=== PATIENT | male | born 1950 | race African-American/Black ===

== ENCOUNTER → 2017-05-27 | Outpatient (CLI) | payer MEDICARE ==
--- NOTE | 2017-05-27 13:08 | RADIOLOGY REPORT (SQ) ---
EXAM DESCRIPTION: CT CHEST WITH; CT ABD/PELVIS WITH IV ONLY COMPLETED DATE/TIME: 05/27/2017 10:33 am REASON FOR STUDY: POLYP OF TRANSVERSE COLON (D12.3); POLYP OF TRANSVERCE COLON, UNSPEC (D12.3) D12.3 BENIGN NEOPLASM OF TRANSVERSE COLON COMPARISON: None. CONTRAST TYPE AND DOSE: contrast/concentration: Isovue 370.00 mg/ml; Total Contrast Delivered: 99.0 ml; Total Saline Delivered: 72.0 ml RADIATION DOSE: Up-to-date CT equipment and radiation dose reduction techniques were employed. CTDIv ol: 9.3 - 14.3 mGy. DLP: 1988 mGy-cm. . LIMITATIONS: None. FINDINGS: CHEST: LUNGS AND PLEURA: No opacities, nodules, masses. No pneumothorax. No effusions. HILAR AND MEDIASTINAL STRUCTURES: No identified masses or abnormal nodes. Small hiatal hernia HEART AND VASCULAR STRUCTURES: No aneurysm or dissection. No central pulmonary emboli. No pericardi al effusion. Mild coronary artery calcifications HARDWARE: None. THYROID AND OTHER SOFT TISSUES: No masses. No adenopathy. BONES: No significant finding. OTHER: No other significant finding. ABDOMEN AND PELVIS: LIVER: Normal size. No masses. No dilated ducts. SPLEEN: Normal size. No focal lesions. PANCREAS: No masses. No significant calcifications. No adjacent inflammation or peripancreatic fluid collections. Pancreatic duct not dilated. GALLBLADDER: Multiple stones layer dependently in the gallbladder. No gallbladder wall thickening or pericholecystic fluid. ADRENAL GLANDS: There are bilateral nonspecific adrenal nodules, 2.1 x 1.8 cm on the right side, a 2. 8 x 2.4 cm on the left RIGHT KIDNEY AND URETER: No solid masses. No significant calcification. No hydronephrosis or hydroure ter. LEFT KIDNEY AND URETER: No solid masses. No significant calcification. No hydronephrosis or hydrouret er. AORTA AND VESSELS: Heavily calcified iliac bifurcation with greater than 50% proximal common iliac ar [place] stenosis. Heavily calcified superior mesenteric artery origin with greater than 50% diameter st enosis. No abdominal aortic aneurysm. RETROPERITONEUM: No retroperitoneal adenopathy, hemorrhage or masses. BOWEL AND PERITONEAL CAVITY: Patient drank oral contrast. No evidence of bowel obstruction. Scatter ed colonic diverticulosis without CT signs of diverticulitis. No free intraperitoneal air or fluid. APPENDIX: Normal, best shown on coronal image 55 ABDOMINAL WALL: No masses. No hernias. BONES: No significant or acute findings. PELVIS: Prostate indents the bladder base. No pelvic masses or adenopathy. Delayed images through t he bladder are unremarkable. 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 Images reviewed with lung, soft tissue and bone windows. Reconstructed coronal a nd sagittal MPR images reviewed. All images stored on PACS. CT scan of the abdomen and pelvis performed with intravenous and with oral contrastusing helical scan lesley technique with dynamic intravenous contrast injection. Images reviewed with lung, soft tissue a nd bone windows. Reconstructed coronal and sagittal MPR images reviewed. Delayed images for evaluat ion of the urinary system also acquired and evaluated. All images stored on PACS. All CT scanners at this facility use dose modulation, iterative reconstruction, and/or weight based d osing when appropriate to reduce radiation dose to as low as reasonably achievable (ALARA). [facility]: Dose Right [facility]: CareDose [facility]: Dose Right [facility]: Teradose 4D [facility]: [employer]
== END ==
LOC: RAD 09:21
PROVIDERS: ATTEND Surgery
DX: D12.3 Benign neoplasm of transverse colon (principal)
CPT/HCPCS: 71260; 74177; 82565

== ENCOUNTER 2019-06-21 14:47 | Inpatient (IN) | payer MEDICARE ==
--- NOTE | 2019-06-21 15:06 | ER Document Report ---
ED Medical Screen (RME) - General Chief Complaint: Breathing Difficulty Stated Complaint: DIFFICULTY BREATHING,COUGH Time Seen by Provider: 06/21/19 15:01 Primary Care Provider: MONTY SHARPE MD [Primary Care Provider] - Follow up as needed Mode of Arrival: Wheelchair Information source: Patient, Relative Notes: 76-year-old male presents with history of high blood pressure high cholesterol with complaints of shortness of breath for the past couple days. Denies history of COPD. O2 sat in the 80s with 3 L nasal cannula applied. No other complaint such as fever vomiting diarrhea. I have greeted and performed a rapid initial assessment of this patient. A comprehensive ED assessment and evaluation of the patient, analysis of test results and completion of the medical decision making process will be conducted by additional ED providers. Dictation of this chart was performed using voice recognition software; therefore, there may be some unintended grammatical errors. TRAVEL OUTSIDE OF THE [place] IN LAST 30 DAYS: No - Related Data Allergies/Adverse Reactions: latex [Latex] Allergy (Intermediate, Verified 06/21/19 15:04) rash Past Medical History - Past Medical History Cardiac Medical History: Reports: Hx Hypertension - on medication Denies: Hx Coronary Artery Disease, Hx Heart Attack Pulmonary Medical History: Denies: Hx Asthma, Hx Bronchitis, Hx COPD, Hx Pneumonia Neurological Medical History: Denies: Hx Cerebrovascular Accident, Hx Seizures Musculoskeltal Medical History: Reports Hx Arthritis Past Surgical History: Denies: Hx Pacemaker - Immunizations Hx Diphtheria, Pertussis, Tetanus Vaccination: Yes - "up to date on others but past on Tetanus" per pt Physical Exam - Vital signs Vitals: Temp Pulse Resp BP Pulse Ox 98 F 87 32 H 193/83 H 87 L 06/21/19 14:59 06/21/19 14:59 06/21/19 14:59 06/21/19 14:59 06/21/19 14:59 Course - Vital Signs Vital signs: Temp Pulse Resp BP Pulse Ox 98 F 87 32 H 193/83 H 87 L 06/21/19 14:59 06/21/19 14:59 06/21/19 14:59 06/21/19 14:59 06/21/19 14:59 Doctor's Discharge - Discharge Referrals: MONTY SHARPE MD [Primary Care Provider] - Follow up as needed
[2019-06-21] MEDS ORDERED: NORMAL SALINE 1000 ML 200 ML IV ONE (15:36)
[2019-06-21] MEDS ORDERED: ASPIRIN 81 MG TABLET, CHEWABLE PO ONE (15:41)
[2019-06-21 15:52] LABS: INTERNATIONAL RATION (INR) 0.98
[2019-06-21 15:54] LABS: ABSOLUTE BASOPHILS # (AUTO) 0.1 10^3/uL (0.0-0.2); ABSOLUTE EOSINOPHILS # (AUTO) 0.1 10^3/uL (0.0-0.6); ABSOLUTE LYMPHOCYTES (AUTO) 0.9 10^3/uL (0.5-4.7); ABSOLUTE MONOCYTES (AUTO) 0.5 10^3/uL (0.1-1.4); ABSOLUTE NEUT (AUTO) 5.6 10^3/uL (1.7-8.2); BASOPHILS % (AUTO) 0.7 % (0-2); HEMATOCRIT 42.3 % (37.9-51.0); LYMPHOCYTES % (AUTO) 12.3 % (13-45); MEAN CORPUSCULAR HEMOGLOBIN 30.4 pg (27.0-33.4); MEAN CORPUSCULAR HGB CONC 33.1 g/dL (32.0-36.0); MEAN CORPUSCULAR VOLUME 92 fl (80-97); MONOCYTES % (AUTO) 6.5 % (3-13); PLATELET COUNT 225 10^3/uL (150-450); RED BLOOD COUNT 4.59 10^6/uL (4.35-5.55); RED CELL DISTRIBUTION WIDTH 13.9 % (11.5-14.0); SEGMENTED NEUTROPHILS % (AUTO) 79.5 % (42-78); TOTAL CELLS COUNTED % (AUTO) 100 %
--- NOTE | 2019-06-21 16:05 | ER Document Report ---
Entered by NEYDA LOOMIS SCRIBE 06/21/19 1551 Acting as scribe for:MARIA M APPIAH IV, MD ED General - General Mode of Arrival: Wheelchair TRAVEL OUTSIDE OF THE [place] IN LAST 30 DAYS: No <MARIA M APPIAH IV - Last Filed: 06/21/19 20:47> <VIVEKDUTCH Yoo - Last Filed: 06/21/19 23:37> - General Chief Complaint: Respiratory Distress Stated Complaint: DIFFICULTY BREATHING,COUGH Time Seen by Provider: 06/21/19 15:01 Primary Care Provider: MONTY SHARPE MD [NO LOCAL MD] - Follow up as needed Notes: This 68-year-old male patient presents to the emergency department today with complaints of what he describes as "a cold" for the last 2 to 3 days. Patient states that the first symptom he noticed was nasal congestion. Patient states yesterday he began developing some shortness of breath with an associated cough with white sputum production. Patient denies ever having any chest pain. PCP: Jamil (MARIA M APPIAH IV) - Related Data Allergies/Adverse Reactions: atorvastatin [From Lipitor] Allergy (Severe, Verified 06/21/19 15:50) Swelling of Throat lisinopril Allergy (Severe, Verified 06/21/19 15:50) Swelling of Throat latex [Latex] Allergy (Intermediate, Verified 06/21/19 15:50) rash Past Medical History - General Information source: Patient, Relative - Social History Smoking Status: Unknown if Ever Smoked Cigarette use (# per day): No Chew tobacco use (# tins/day): No Frequency of alcohol use: None Drug Abuse: None Lives with: Family Family History: Reviewed & Not Pertinent Patient has suicidal ideation: No Patient has homicidal ideation: No - Past Medical History Cardiac Medical History: Reports: Hx Hypertension - on multiple meds Musculoskeletal Medical History: Reports Hx Arthritis - Immunizations Hx Diphtheria, Pertussis, Tetanus Vaccination: Yes - "up to date on others but past on Tetanus" per pt <MARIA M APPIAH IV - Last Filed: 06/21/19 20:47> Review of Systems - Review of Systems Constitutional: No symptoms reported EENT: See HPI, Nose congestion Cardiovascular: denies: Chest pain Respiratory: See HPI, Cough, Short of breath Gastrointestinal: No symptoms reported Genitourinary: No symptoms reported Male Genitourinary: No symptoms reported Musculoskeletal: No symptoms reported Skin: No symptoms reported Hematologic/Lymphatic: No symptoms reported Neurological/Psychological: No symptoms reported -: Yes All other systems reviewed and negative <MARIA M APPIAH IV - Last Filed: 06/21/19 20:47> Physical Exam <MARIA M APPIAH IV - Last Filed: 06/21/19 20:47> - Vital signs Vitals: Temp Pulse Resp BP Pulse Ox 98 F 87 32 H 193/83 H 87 L 06/21/19 14:59 06/21/19 14:59 06/21/19 14:59 06/21/19 14:59 06/21/19 14:59 - Notes Notes: Physical Exam: General: Alert, appears well. HEENT: Normocephalic. Atraumatic. PERRL. Extraocular movements intact. Oropharynx clear. Neck: Supple. Non-tender. Respiratory: No respiratory distress. Clear and equal breath sounds bilaterally. Cardiovascular: Regular rate and rhythm. Abdominal: Normal Inspection. Non-tender. No distension. Normal Bowel Sounds. Back: No gross abnormalities. Extremities: Moves all four extremities. Upper extremities: Normal inspection. Normal ROM. Lower extremities: Normal inspection. No edema. Normal ROM. Neurological: Normal cognition. AAOx4. Normal speech. Psychological: Normal affect. Normal Mood. Skin: Warm. Dry. Normal color. (TDMARIA M HOPE IV) Course - Laboratory Result Diagrams: 06/21/19 15:30 06/21/19 15:30 - Transfer of Care Care transferred to following provider: DR. DOYLE AT 2047 HOURS <TDMARIA M IV - Last Filed: 06/21/19 20:47> - Laboratory Result Diagrams: 06/21/19 15:30 06/21/19 15:30 - Diagnostic Test Radiology reviewed: Image reviewed, Reports reviewed - Chest x-ray: Cardiomegaly with vascular congestion. <DUTCH DOYLE - Last Filed: 06/21/19 23:37> - Re-evaluation Re-evalutation: 06/21/19 20:12 Patient states that he just quit smoking yesterday. Patient states he is been smoking since he was in his 20s. Currently the patient is satting in the 90s on room air. (MARIA M APPIAH IV) 06/21/19 23:32 Assumed patient care from, , patient is on BiPAP doing much better, he was given Lasix 20 mg IV with no significant diuresis at this point. Appears to be a combination of cardiorespiratory exacerbation of shortness of breath. Doubt ischemic heart disease. Elevated BNP. 06/21/19 23:36 I have discussed with the patient that he will need to be brought into the hospital for further evaluation and treatment, he is in agreement with that plan. The hospitalist was contacted and will admit the patient for further evaluation and treatment. (DUTCH DOYLE) - Vital Signs Vital signs: Temp Pulse Resp BP Pulse Ox 97.9 F 87 21 H 116/98 H 100 06/21/19 20:33 06/21/19 15:04 06/21/19 23:01 06/21/19 23:01 06/21/19 23:01 - Laboratory Laboratory results interpreted by me: 06/21/19 06/21/19 06/21/19 15:30 15:30 15:30 Lymph % (Auto) 12.3 L Seg Neutrophils % 79.5 H Carbonic Acid ABG pH ABG pCO2 ABG pO2 ABG Total CO2 Glucose 150 H Total Bilirubin 1.4 H NT-Pro-B Natriuret Pep 1520 H Urine Protein Urine Blood 06/21/19 06/21/19 16:19 17:46 Lymph % (Auto) Seg Neutrophils % Carbonic Acid 0.83 L ABG pH 7.48 H ABG pCO2 27.5 L ABG pO2 63.2 L ABG Total CO2 20.8 L Glucose Total Bilirubin NT-Pro-B Natriuret Pep Urine Protein >=500 H Urine Blood SMALL H - EKG Interpretation by Me Additional EKG results interpreted by me: 06/21/19 20:18 EKG was performed at 1527 hrs. on 06/21/2019 and was interpreted by this MD. Findings: There are segments of ST elevation in V3 and V4 greater than 1 mm in height. There is some upsloping to the elevated ST segments. There are no apparent reciprocal changes seen on the EKG. Patient has a normal sinus rhythm, rate of 81, normal axis, P waves preceding QRS complexes, QRS complexes appear narrow. Repeat EKG performed at 1558 hrs. on 06/21/2019 was interpreted by this MD. Again seen are ST elevation segments with upsloping in V2 through V5. Again no reciprocal areas of depression are seen. Patient has a normal sinus rhythm with a rate of 83, normal axis, P waves preceding QRS complexes, QRS complexes are narrow. (MARIA M APPIAH IV) 06/21/19 23:35 EKG interpretation: Normal sinus rhythm, rate 83. First-degree AV block, DENIZ ED, LVH, repolarization abnormality. (DUTCH DOYLE) Discharge <MARIA M APPIAH IV - Last Filed: 06/21/19 20:47> - Discharge Admitting Provider: Julee (Hospitalist) Unit Admitted: Medical Floor <DUTCH DOYLE - Last Filed: 06/21/19 23:37> - Discharge Clinical Impression: Acute dyspnea CHF (congestive heart failure) Qualifiers: Heart failure type: other Qualified Code(s): I50.9 - Heart failure, unspecified Condition: Good Disposition: ADMITTED INPATIENT Referrals: MONTY SHARPE MD [NO LOCAL MD] - Follow up as needed I personally performed the services described in the documentation, reviewed and edited the documentation which was dictated to the scribe in my presence, and it accurately records my words and actions.
[2019-06-21 16:08] LABS: ALBUMIN 3.9 g/dL (3.5-5.0); ALKALINE PHOSPHATASE 39 U/L (38-126); ANION GAP 11 (5-19); ASPARTATE AMINO TRANSFERASE 21 U/L (17-59); BILIRUBIN,DIRECT 0.2 mg/dL (0.0-0.4); BILIRUBIN,TOTAL 1.4 mg/dL (0.2-1.3); BLOOD UREA NITROGEN 10 mg/dL (7-20); CALCIUM 9.4 mg/dL (8.4-10.2); CARBON DIOXIDE 22 mmol/L (22-30); CHLORIDE 104 mmol/L (98-107); GLUCOSE 150 mg/dL (75-110); POTASSIUM 3.6 mmol/L (3.6-5.0); TOTAL PROTEIN 6.9 g/dL (6.3-8.2)
--- NOTE | 2019-06-21 16:14 | RADIOLOGY REPORT (SQ) ---
EXAM DESCRIPTION: CHEST SINGLE VIEW COMPLETED DATE/TIME: 06/21/2019 3:52 pm REASON FOR STUDY: sob COMPARISON: 05/27/2017 TECHNIQUE: Single frontal radiographic view of the chest acquired. NUMBER OF VIEWS: One view. LIMITATIONS: None. FINDINGS: LUNGS AND PLEURA: No pneumothorax. Small amount of left basilar airspace disease- subsegm ental atelectasis. No significant pleural effusion. MEDIASTINUM AND HILAR STRUCTURES: Stable. HEART AND VASCULAR STRUCTURES: Stable. BONES: No acute findings. HARDWARE: None in the chest. OTHER: No other significant finding. IMPRESSION: Small amount of left basilar airspace disease- subsegmental atelectasis. No significant pleural effusion. TECHNICAL DOCUMENTATION: JOB ID: [id number] [id number] 2010 [employer] acquired by [employer]- All Rights Reserved Reading location - IP/workstation name: [email or web address]
[2019-06-21 16:20] LABS: TROPONIN I 0.048 ng/mL
[2019-06-21 16:35] LABS: APPEARANCE,URINE CLEAR; BILIRUBIN,URINE NEGATIVE (NEGATIVE); COLOR,URINE YELLOW; GLUCOSE, URINE NEGATIVE (NEGATIVE); KETONES,URINE NEGATIVE (NEGATIVE); LEUKOCYTE ESTERASE,URINE NEGATIVE (NEGATIVE); NITRITE,URINE NEGATIVE (NEGATIVE); PROTEIN,URINE >=500 mg/dL (NEGATIVE); URINE SPECIFIC GRAVITY 1.009; UROBILINOGEN,URINE NEGATIVE mg/dL (<2.0)
[2019-06-21 18:23] LABS: ARTERIAL BLOOD BASE EXCESS -2.1 mmol/L; ARTERIAL BLOOD H2CO3 0.83 mmol/L (1.05-1.35); ARTERIAL BLOOD PCO2 27.5 mmHg (35-45); ARTERIAL BLOOD PH 7.48 (7.35-7.45); ARTERIAL BLOOD PO2 63.2 mmHg (80-100); ARTERIAL BLOOD TOTAL CO2 20.8 mmol/L (23-27)
[2019-06-21 18:24] LABS: ARTERIAL BLOOD FIO2 ROOM AIR
[2019-06-21] MEDS ORDERED: IPRATROPIUM/ALBUTEROL 0.5-2.5 MG/3 ML AMPUL NEB ONE ×2 (20:35→20:38)
[2019-06-21] MEDS ORDERED: METHYLPREDNISOLONE INJ 125 MG/2 ML SDV IV ONE (20:35)
[2019-06-21] MEDS ORDERED: METHYLPREDNISOLONE INJ 125 MG/2 ML SDV ONE (20:38)
[2019-06-21] MEDS ORDERED: FUROSEMIDE INJ/PF 20 MG/2 ML SDV IV ONE (20:45)
--- NOTE | 2019-06-21 21:00 | EKG REPORT ---
SEVERITY:- ABNORMAL ECG - SINUS RHYTHM FIRST DEGREE AV BLOCK LEFT ATRIAL ABNORMALITY PROBABLE LEFT VENTRICULAR HYPERTROPHY ANTERIOR ST ELEVATION, PROBABLY DUE TO LVH : Confirmed by: Vinnie Sarabia MD 21-Jun-2019 20:59:41
--- NOTE | 2019-06-21 21:01 | EKG REPORT ---
SEVERITY:- ABNORMAL ECG - SINUS RHYTHM LEFT ATRIAL ABNORMALITY PROBABLE LEFT VENTRICULAR HYPERTROPHY ST ELEVATION, CONSIDER ANTERIOR INJURY , NO OLD EKG TO COMPARE, CLINICAL CORRELATION NEEDED. : Confirmed by: Vinnie Sarabia MD 21-Jun-2019 21:00:56
[2019-06-22] MEDS ORDERED: MAG HYDROX/AL HYDROX/SIMETH SUSP 30 ML UDCUP PO PRN (00:42)
[2019-06-22] MEDS ORDERED: ONDANSETRON HCL INJ/PF 4 MG/2 ML SDV IV PRN (00:42)
[2019-06-22] MEDS ORDERED: MAGNESIUM HYDROXIDE SUSP 30 ML UDCUP PO PRN (00:42)
[2019-06-22] MEDS ORDERED: LEVALBUTEROL HCL NEB 0.63 MG/3 ML AMPUL NEB PRN (00:42)
[2019-06-22] MEDS ORDERED: MORPHINE SULFATE 10 MG/ML INJ IV PRN (00:49)
[2019-06-22] MEDS ORDERED: ACETAMINOPHEN 325 MG TABLET PO PRN (00:49)
[2019-06-22] MEDS ORDERED: GLUCAGON,HUMAN RECOMB 1 MG INJ IM PRN (00:51)
[2019-06-22] MEDS ORDERED: DEXTROSE 50%-WATER 25 GM/50 ML DISP.SYRIN IV PRN ×2 (00:51)
[2019-06-22] MEDS ORDERED: DEXTROSE 40% GEL 15 GM TUBE PO PRN ×2 (00:51)
--- NOTE | 2019-06-22 02:06 | PDOC H&P ---
History of Present Illness Admission Date/PCP: 06/21/2019 23:40 ALEXANDER VELASQUEZ MD Patient complains of: Dyspnea History of Present Illness: LUCIE ANDREWS is a 68 year old male who presented to the emergency room with a 3-day history of dyspnea. He admits that over the last 3 days his respiratory symptoms have progressively worsened from initial minimal dyspnea with mild chest congestion to today's severe dyspnea causing him to come to the emergency room. His dyspnea has been associated with orthopnea and is worsened on exertion. His dyspnea has been accompanied by a cough productive of small amounts of white sputum. He denies other associated or accompanying signs and symptoms. He denies prior similar episodes. He has not identified any additional aggravating or ameliorating factors for his dyspnea. In the emergency room he was found to have hypoxia and increased work of breathing, requiring BiPAP therapy. Past Medical History Cardiac Medical History: Reports: Hyperlipidema, Hypertension Denies: Atrial Fibrillation, Congestive Heart Failure, Coronary Artery Disease, Myocardial Infarction Pulmonary Medical History: Denies: Asthma, Bronchitis, Chronic Obstructive Pulmonary Disease (COPD), Pneumonia EENT Medical History: Denies: Cataracts, Ears - Hearing aids Neurological Medical History: Denies: Hemorrhagic CVA, Ischemic CVA, Seizures Endocrine Medical History: Reports: Diabetes Mellitus Type 2 Denies: Diabetes Mellitus Type 1, Hyperthyroidism, Hypothyroidism, Obesity Renal/ Medical History: Denies: Chronic Kidney Disease, Nephrolithiasis Malignancy Medical History: Reports: None GI Medical History: Denies: Cirrhosis, Crohn's Disease, Hepatitis, Ulcerative Colitis Musculoskeltal Medical History: Reports: Arthritis Denies: Fibromyalgia, Gout Skin Medical History: Denies: Eczema, Psoriasis Psychiatric Medical History: Reports: Tobacco Dependency Denies: Alcohol Dependency, Substance Abuse Traumatic Medical History: Reports: None Hematology: Denies: Anemia, Bleeding Tendencies Infectious Medical History: Reports: None Past Surgical History Past Surgical History: Reports: Orthopedic Surgery - Neck Fusion X 2, rotator cuff surgery, Other - Segmental colectomy for colon cancer Social History Information Source: Patient Lives with: Spouse/Significant other Smoking Status: Current Every Day Smoker Cigarettes Packs Per Day: 0.5 Electronic Cigarette use?: No Frequency of Alcohol Use: None Hx Recreational Drug Use: No Drugs: None Hx Prescription Drug Abuse: No - Advance Directive Resuscitation Status: Full Code Surrogate healthcare decision maker:: Ingrid Taco Family History Family History: DM, Hypertension. denies: CAD, Malignancy Parental Family History Reviewed: Yes Children Family History Reviewed: No Sibling(s) Family History Reviewed.: Yes Medication/Allergy Home Medications: Amlodipine Besylate [Norvasc 10 mg Tablet] 10 mg PO DAILY 10/03/11 Labetalol HCl 600 mg PO BID 10/03/11 Metformin HCl [Glucophage 500 mg Tablet] 500 mg PO BID 10/03/11 Omeprazole [Prilosec] 20 mg PO DAILY 10/03/11 Terazosin HCl 20 mg PO DAILY 10/03/11 Clonidine HCl [Catapres] 0.1 mg PO Q12 02/02/14 Lovastatin [Altoprev] 40 mg PO QHS 06/22/19 Meloxicam [Mobic] 15 mg PO DAILYP PRN 06/22/19 Allergies/Adverse Reactions: atorvastatin [From Lipitor] Allergy (Severe, Verified 06/21/19 15:50) Swelling of Throat lisinopril Allergy (Severe, Verified 06/21/19 15:50) Swelling of Throat latex [Latex] Allergy (Intermediate, Verified 06/21/19 15:50) rash Review of Systems Constitutional: ABSENT: chills, fever(s) Eyes: ABSENT: visual disturbances, other - Eye pain Ears: ABSENT: hearing changes, other - Ear pain Nose, Mouth, and Throat: ABSENT: headache(s), mouth pain, sore throat Cardiovascular: PRESENT: as per HPI, dyspnea on exertion, orthropnea. ABSENT: chest pain, edema, palpitations Respiratory: PRESENT: as per HPI, cough, dyspnea, sputum. ABSENT: hemoptysis Gastrointestinal: ABSENT: abdominal pain, constipation, diarrhea, nausea, vomiting Genitourinary: ABSENT: dysuria, hematuria Musculoskeletal: ABSENT: back pain, joint swelling, muscle weakness Integumentary: ABSENT: pruritus, rash Neurological: ABSENT: confusion, convulsions, focal weakness, memory loss, syncope Psychiatric: ABSENT: anxiety, depression Endocrine: ABSENT: cold intolerance, heat intolerance Hematologic/Lymphatic: ABSENT: easy bleeding, easy bruising Allergic/Immunologic: ABSENT: seasonal rhinorrhea Physical Exam Vital Signs: Temp Pulse Resp BP Pulse Ox 97.9 F 87 21 H 116/98 H 100 06/21/19 20:33 06/21/19 15:04 06/21/19 23:01 06/21/19 23:01 06/21/19 23:01 Intake & Output 06/19/19 06/20/19 06/21/19 23:59 23:59 23:59 Intake Total 200 Balance 200 Weight 94.801 kg General appearance: PRESENT: no acute distress, cooperative, other - On BiPAP Head exam: PRESENT: atraumatic, normocephalic Eye exam: PRESENT: conjunctiva pink. ABSENT: conjunctival injection, scleral icterus Ear exam: PRESENT: normal external ear exam. ABSENT: bleeding, drainage Mouth exam: PRESENT: dry mucosa, neck supple Neck exam: PRESENT: JVD - Bilateral at 30 degrees. ABSENT: thyromegaly, tracheal deviation Respiratory exam: PRESENT: decreased breath sounds - Mildly decreased breath sounds at the bilateral bases, rales - Fine bibasilar rales in the lower one fourth of both lung camacho, symmetrical, other - On BiPAP. ABSENT: prolonged expiratory phas, tachypnea, wheezes Cardiovascular exam: PRESENT: gallop - Faint S4 gallop, RRR. ABSENT: clicks, rubs Pulses: PRESENT: normal radial pulses, normal dorsalis pedis pul Vascular exam: PRESENT: normal capillary refill. ABSENT: pallor GI/Abdominal exam: PRESENT: normal bowel sounds, soft Rectal exam: PRESENT: deferred Extremities exam: ABSENT: joint swelling, pedal edema Musculoskeletal exam: ABSENT: deformity, dislocation Neurological exam: PRESENT: alert, oriented to person, oriented to place, oriented to time, oriented to situation, CN II-XII grossly intact. ABSENT: motor sensory deficit Psychiatric exam: PRESENT: appropriate affect, normal mood Skin exam: PRESENT: dry, intact, warm. ABSENT: jaundice, rash, urticaria Results Laboratory Results: 06/21/19 15:30 06/21/19 15:30 06/21/19 06/21/19 06/21/19 15:30 15:30 16:19 WBC 7.0 RBC 4.59 Hgb 14.0 Hct 42.3 MCV 92 MCH 30.4 MCHC 33.1 RDW 13.9 Plt Count 225 Seg Neutrophils % 79.5 H Carbonic Acid HCO3/H2CO3 Ratio ABG pH ABG pCO2 ABG pO2 ABG HCO3 ABG O2 Saturation ABG Base Excess FiO2 Sodium 137.2 Potassium 3.6 Chloride 104 Carbon Dioxide 22 Anion Gap 11 BUN 10 Creatinine 0.97 Est GFR ( Amer) > 60 Glucose 150 H Calcium 9.4 Total Bilirubin 1.4 H AST 21 Alkaline Phosphatase 39 Total Protein 6.9 Albumin 3.9 Urine Color YELLOW Urine Appearance CLEAR Urine pH 6.0 Ur Specific [place] 1.009 Urine Protein >=500 H Urine Glucose (UA) NEGATIVE Urine Ketones NEGATIVE Urine Blood SMALL H Urine Nitrite NEGATIVE Ur Leukocyte Esterase NEGATIVE Urine WBC (Auto) 0 Urine RBC (Auto) 0 06/21/19 17:46 WBC RBC Hgb Hct MCV MCH MCHC RDW Plt Count Seg Neutrophils % Carbonic Acid 0.83 L HCO3/H2CO3 Ratio 24:1 ABG pH 7.48 H ABG pCO2 27.5 L ABG pO2 63.2 L ABG HCO3 20.0 ABG O2 Saturation 94.0 ABG Base Excess -2.1 FiO2 ROOM AIR Sodium Potassium Chloride Carbon Dioxide Anion Gap BUN Creatinine Est GFR ( Amer) Glucose Calcium Total Bilirubin AST Alkaline Phosphatase Total Protein Albumin Urine Color Urine Appearance Urine pH Ur Specific [place] Urine Protein Urine Glucose (UA) Urine Ketones Urine Blood Urine Nitrite Ur Leukocyte Esterase Urine WBC (Auto) Urine RBC (Auto) 06/21/19 06/21/19 15:30 20:02 Troponin I 0.048 0.060 NT-Pro-B Natriuret Pep 1520 H Impressions: Chest X-Ray 06/21/19 15:04 IMPRESSION: Small amount of left basilar airspace disease- subsegmental atelectasis. No significant pleural effusion. Assessment and Plan - Diagnosis (1) Acute respiratory failure with hypoxia Is this a current diagnosis for this admission?: Yes (2) Acute congestive heart failure Qualifiers: Heart failure type: unspecified Qualified Code(s): I50.9 - Heart failure, unspecified Is this a current diagnosis for this admission?: Yes (3) Essential hypertension Is this a current diagnosis for this admission?: Yes (4) Diabetes mellitus type 2 in nonobese Is this a current diagnosis for this admission?: Yes (5) Hyperlipidemia associated with type 2 diabetes mellitus Is this a current diagnosis for this admission?: Yes (6) Primary osteoarthritis involving multiple joints Is this a current diagnosis for this admission?: Yes (7) Tobacco use disorder, moderate, dependence Is this a current diagnosis for this admission?: Yes - Plan Summary Summary: Patient will be admitted to medical floor where he will receive routine supportive and symptomatic cares. He will be treated with intravenous Lasix 10 mg every 6 hours. An echocardiogram will be obtained and a cardiology consultation with Dr. Harrell has been ordered. Patient will be supported with BiPAP or other respiratory intervention as required to maintain adequate oxygen saturation. He will be continued on his usual home medications as appropriate. He will be continued on cardiac and diabetic restricted diet. Before meals and at bedtime Accu-Cheks will be obtained with sliding scale insulin for hyperglycemia and a hypoglycemic protocol in place. Patient will use morphine sulfate 2 mg IV every hour as needed for severe dyspnea. - Time Time Spent with patient: 25-34 minutes Medications reviewed and adjusted accordingly: Yes Anticipated discharge: Home with Homehealth - Inpatient Certification Based on my medical assessment, after consideration of the patient's comorbidities, presenting symptoms, or acuity I expect that the services needed warrant INPATIENT care.: Yes I certify that my determination is in accordance with my understanding of Medicare's requirements for reasonable and necessary INPATIENT services [42 CFR 412.3e].: Yes Medical Necessity: Significant Comorbidiites Make Outpatient Treatment Too Risky, Need Close Monitoring Due to Risk of Patient Decompensation, Risk of Complication if Not Cared For in Hospital
[2019-06-22 02:44] LABS: CREATINE KINASE MB 3.23 ng/mL (<4.55); TROPONIN I 0.076 ng/mL
[2019-06-22] MEDS: HEPARIN SOD (PORCINE) 5,000 UNIT/ML 1 ML VIAL SUBCUT SCH ×3 (07:05→21:15)
[2019-06-22] MEDS: INSULIN REG, HUMAN 100 UNIT/ML 3 ML VIAL (PYX) SUBCUT SCH ×4 (08:22→21:15)
--- NOTE | 2019-06-22 08:32 | PDOC PROGRESS REPORT ---
Subjective Progress Note for:: 06/22/19 Subjective:: 06/22/2019-no complaints Reason For Visit: DYSPNEA, ORTHOPNEA Physical Exam Vital Signs: Temp Pulse Resp BP Pulse Ox 97.4 F 79 18 116/82 95 06/22/19 01:07 06/22/19 01:07 06/22/19 05:37 06/22/19 01:07 06/22/19 06:23 Intake & Output 06/21/19 06/22/19 06/23/19 06:59 06:59 06:59 Intake Total 200 Output Total 200 Balance 0 Weight 93.1 kg General appearance: PRESENT: no acute distress, well-developed, well-nourished Neck exam: ABSENT: carotid bruit, JVD, lymphadenopathy, thyromegaly Respiratory exam: PRESENT: decreased breath sounds, rales - Bases, symmetrical, unlabored Cardiovascular exam: PRESENT: RRR. ABSENT: diastolic murmur, rubs, systolic murmur Pulses: PRESENT: normal dorsalis pedis pul Vascular exam: PRESENT: normal capillary refill GI/Abdominal exam: PRESENT: normal bowel sounds, soft. ABSENT: distended, guarding, mass, organolmegaly, rebound, tenderness Extremities exam: PRESENT: full ROM. ABSENT: calf tenderness, clubbing, pedal edema Neurological exam: PRESENT: alert, awake, oriented to person, oriented to place, oriented to time, oriented to situation, CN II-XII grossly intact. ABSENT: motor sensory deficit Psychiatric exam: PRESENT: appropriate affect, normal mood. ABSENT: homicidal ideation, suicidal ideation Skin exam: PRESENT: dry, intact, warm. ABSENT: cyanosis, rash Results Laboratory Results: 06/21/19 15:30 06/21/19 15:30 06/21/19 06/21/19 06/21/19 15:30 15:30 16:19 WBC 7.0 RBC 4.59 Hgb 14.0 Hct 42.3 MCV 92 MCH 30.4 MCHC 33.1 RDW 13.9 Plt Count 225 Seg Neutrophils % 79.5 H Carbonic Acid HCO3/H2CO3 Ratio ABG pH ABG pCO2 ABG pO2 ABG HCO3 ABG O2 Saturation ABG Base Excess FiO2 Sodium 137.2 Potassium 3.6 Chloride 104 Carbon Dioxide 22 Anion Gap 11 BUN 10 Creatinine 0.97 Est GFR ( Amer) > 60 Glucose 150 H Calcium 9.4 Total Bilirubin 1.4 H AST 21 Alkaline Phosphatase 39 Total Protein 6.9 Albumin 3.9 Urine Color YELLOW Urine Appearance CLEAR Urine pH 6.0 Ur Specific [place] 1.009 Urine Protein >=500 H Urine Glucose (UA) NEGATIVE Urine Ketones NEGATIVE Urine Blood SMALL H Urine Nitrite NEGATIVE Ur Leukocyte Esterase NEGATIVE Urine WBC (Auto) 0 Urine RBC (Auto) 0 06/21/19 17:46 WBC RBC Hgb Hct MCV MCH MCHC RDW Plt Count Seg Neutrophils % Carbonic Acid 0.83 L HCO3/H2CO3 Ratio 24:1 ABG pH 7.48 H ABG pCO2 27.5 L ABG pO2 63.2 L ABG HCO3 20.0 ABG O2 Saturation 94.0 ABG Base Excess -2.1 FiO2 ROOM AIR Sodium Potassium Chloride Carbon Dioxide Anion Gap BUN Creatinine Est GFR ( Amer) Glucose Calcium Total Bilirubin AST Alkaline Phosphatase Total Protein Albumin Urine Color Urine Appearance Urine pH Ur Specific [place] Urine Protein Urine Glucose (UA) Urine Ketones Urine Blood Urine Nitrite Ur Leukocyte Esterase Urine WBC (Auto) Urine RBC (Auto) 06/21/19 06/21/19 06/22/19 15:30 20:02 01:49 Creatine Kinase 154 CK-MB (CK-2) Troponin I 0.048 0.060 NT-Pro-B Natriuret Pep 1520 H 06/22/19 01:49 Creatine Kinase CK-MB (CK-2) 3.23 Troponin I 0.076 NT-Pro-B Natriuret Pep Impressions: Chest X-Ray 06/21/19 15:04 IMPRESSION: Small amount of left basilar airspace disease- subsegmental atelectasis. No significant pleural effusion. Assessment and Plan - Diagnosis (1) Acute respiratory failure with hypoxia Is this a current diagnosis for this admission?: Yes Plan: 06/22/2019-improved this a.m. Patient on nasal cannula speaking in full sentences. O2 sats 95% (2) Acute congestive heart failure Qualifiers: Heart failure type: unspecified Qualified Code(s): I50.9 - Heart failure, unspecified Is this a current diagnosis for this admission?: Yes Plan: 06/22/2019-awaiting echocardiogram. Patient does have bilateral basilar rales. Lasix 40 mg IV twice daily. Await bump in creatinine (3) Diabetes mellitus type 2 in nonobese Is this a current diagnosis for this admission?: Yes Plan: 06/22/2019-stable at this time. Continue current modality including slight scale insulin. (4) Essential hypertension Is this a current diagnosis for this admission?: Yes Plan: 06/22/2019-stable. Continue to follow (5) Hyperlipidemia associated with type 2 diabetes mellitus Is this a current diagnosis for this admission?: Yes Plan: 06/22/2019-stable (6) Primary osteoarthritis involving multiple joints Is this a current diagnosis for this admission?: Yes Plan: 06/22/2019-stable (7) Tobacco use disorder, moderate, dependence Is this a current diagnosis for this admission?: Yes Plan: 06/22/2019-continue smoking cessation education - Plan Summary Summary: Patient will be admitted to medical floor where he will receive routine supportive and symptomatic cares. He will be treated with intravenous Lasix 10 mg every 6 hours. An echocardiogram will be obtained and a cardiology consultation with Dr. Harrell has been ordered. Patient will be supported with BiPAP or other respiratory intervention as required to maintain adequate oxygen saturation. He will be continued on his usual home medications as appropriate. He will be continued on cardiac and diabetic restricted diet. Before meals and at bedtime Accu-Cheks will be obtained with sliding scale insulin for hyperglycemia and a hypoglycemic protocol in place. Patient will use morphine sulfate 2 mg IV every hour as needed for severe dyspnea. - Time Time Spent with patient: 15-24 minutes - Inpatient Certification Based on my medical assessment, after consideration of the patient's comorbidities, presenting symptoms, or acuity I expect that the services needed warrant INPATIENT care.: Yes I certify that my determination is in accordance with my understanding of Medicare's requirements for reasonable and necessary INPATIENT services [42 CFR 412.3e].: Yes Medical Necessity: Significant Comorbidiites Make Outpatient Treatment Too Risky, Need Close Monitoring Due to Risk of Patient Decompensation
[2019-06-22 08:47] LABS: CHOLESTEROL 149.16 mg/dL (0-200); CREATINE KINASE 154 U/L (55-170); TRIGLYCERIDES 55 mg/dL (<150)
[2019-06-22 08:57] LABS: DIRECT LDL 100 mg/dL (<100)
[2019-06-22 08:58] LABS: CREATINE KINASE MB 3.16 ng/mL (<4.55); TROPONIN I 0.071 ng/mL
[2019-06-22] MEDS: DOCUSATE SODIUM 100 MG CAPSULE PO SCH ×2 (09:48→18:33)
[2019-06-22] MEDS: FAMOTIDINE 20 MG TABLET PO SCH ×2 (09:48→21:14)
[2019-06-22] MEDS: FUROSEMIDE INJ/PF 40 MG/4 ML SDV IV SCH ×2 (09:48→21:14)
--- NOTE | 2019-06-22 15:34 | PDOC CONSULTATION ---
Consultation-Blank Consultation: ECHO: The left ventricle is mildly dilated. There is mild concentric left ventricular hypertrophy. LV EF is 40% Left ventricular systolic function is moderately reduced. Doppler measurements suggest impaired left ventricular relaxation, which is associated with grade I/IV or mild diastolic dysfunction There is moderate global hypokinesis of the left ventricle. There is no thrombus. No ASD or VSD seen. The right ventricle is grossly normal size. The right ventricle is not well visualized secondary to technical limitations The right atrium is normal. The left atrium is moderately dilated. There is no evidence of mitral valve prolapse. There is no vegetation seen on the mitral valve. There is no mitral valve stenosis. There is a moderate amount of mitral regurgitation There is no aortic valvular vegetation. There is no aortic valve stenosis There is no LVOT obstruction. No aortic regurgitation is present. There is no tricuspid stenosis. There is a trace to mild amount of tricuspid regurgitation There is mild pulmonary hypertension by echo RVSP is 32 to 37 mm of Hg , with RA mean of 10 to 15. There is no pulmonic valvular regurgitation. The aortic root is normal size. The inferior vena cava appeared normal and decreased < 50% with respiration (RAP 10-15 mmHg) Minimal pericardial effusion. There are no echocardiographic or Doppler indications for cardiac tamponade IMPRESSION RECOMMENDATION 1. Congestive heart failure seems to be acute in onset given the timeframe of symptom and etiology of 3 to 4 days. Agree with current diuretics. Would recommend stop the patient's clonidine. Start the patient on a beta-stephanie such as Toprol-XL in view of the patient's cardiomyopathy. Also would recommend starting the patient on BiDil. This is because the patient is severe angioedema with lisinopril and there is a small percentage of cross sensitivity with ARB. 2. Cardiomyopathy with moderately reduced LV ejection fraction. 3. COPD: History of tobacco abuse. Most likely there is some element aphasia acute exacerbation of COPD. Would recommend continue the patient on bronchodilators. There is no evidence of infection hence would hold off on antibiotics. 4. Hypertension: Blood pressure well controlled. 5. Diabetes mellitus type 2 [id number]: Continue current medical regimen. 6. Multiple CAD risk factors namely age, hypertension, diabetes mellitus, and tobacco abuse disorder. Also with LV dysfunction. Later would recommend once heart failure is controlled would recommend getting IV Lexiscan Cardiolite stress test. This can be done as an outpatient. This has been discussed with the patient. Medications reviewed. Medication management plan discussed with the attending provider on the case. Medical decision making is of high complexity. 60 minutes spent as patient more than 50% time spent in direct patient care.
[2019-06-22 15:41] LABS: CREATINE KINASE MB 3.17 ng/mL (<4.55)
--- NOTE | 2019-06-22 15:51 | RADIOLOGY REPORT (SQ) ---
EXAM DESCRIPTION: VENOUS UNILATERAL LOWER COMPLETED DATE/TIME: 06/22/2019 3:41 pm REASON FOR STUDY: left lower extremity pain COMPARISON: None. TECHNIQUE: Dynamic and static garcia scale and color images acquired of the left leg venous system. Se lected spectral images acquired with additional compression and augmentation maneuvers. The contralat eral common femoral vein and saphenofemoral junction were also imaged. Images stored on PACS. LIMITATIONS: None. FINDINGS: COMMON FEMORAL: Normal phasicity, compression and augmentation. No visualized echogenic ma terial on garcia scale. No defects on color images. FEMORAL: Normal compression and augmentation. No visualized echogenic material on garcia scale. No defe cts on color images. POPLITEAL: Normal compression, augmentation. No visualized echogenic material on garcia scale. No defec ts on color images. CALF VESSELS: Normal compression, augmentation. No visualized echogenic material on garcia scale. No de fects on color images. GSV and SSV: Normal compression, augmentation. No visualized echogenic material on garcia scale. No def ects on color images. ANY DEEP VENOUS INSUFFICIENCY: Not evaluated. ANY EVIDENCE OF POPLITEAL CYST: No. OTHER: No other significant finding. CONTRALATERAL COMMON FEMORAL VEIN AND SAPHENOFEMORAL JUNCTION: Normal phasicity, compression and augmentation. No visualized echogenic material on garcia scale. No de fects on color images. IMPRESSION: NO EVIDENCE DVT OR SVT IN THE LEFT LEG. TECHNICAL DOCUMENTATION: JOB ID: [id number] [employer]- All Rights Reserved Reading location - IP/workstation name: [email or web address]
[2019-06-22 16:28] LABS: TROPONIN I 0.068 ng/mL
[2019-06-22] MEDS: ISOSORB DINIT/HYDRALAZINE HCL 20-37.5 MG TABLET PO SCH (18:33)
[2019-06-22] MEDS: METOPROLOL SUCCINATE 25 MG TAB.SR.24H PO SCH (21:14)
--- NOTE | 2019-06-22 21:15 | XCELERA REPORT ---
[address] [address] Transthoracic Echocardiogram Report Name: LUCIE ANDREWS Age: 68 yrs Gender: Male : 1950 Patient Status: Inpatient Patient Location: [address] [place] [address] Study Date: 06/22/2019 02:08 PM Height: 70 in Weight: 209 lb BSA: 2.1 m2 Procedure: A two-dimensional transthoracic echocardiogram with color flow and Doppler was performed. Study Quality: Fair. Reason For Study: Dyspnea and orthopnea and longstanding HTN History: Dyspnea and orthopnea and longstanding HTN. Ordering Physician: NELSON ONEAL Performed By: Dior Almaraz Interpretation Summary The left ventricle is mildly dilated. There is mild concentric left ventricular hypertrophy. LV EF is 40% Left ventricular systolic function is moderately reduced. Doppler measurements suggest impaired left ventricular relaxation, which is associated with grade I/IV or mild diastolic dysfunction There is moderate global hypokinesis of the left ventricle. There is no thrombus. No ASD or VSD seen. The right ventricle is grossly normal size. The right ventricle is not well visualized secondary to technical limitations The right atrium is normal. The left atrium is moderately dilated. There is no evidence of mitral valve prolapse. There is no vegetation seen on the mitral valve. There is no mitral valve stenosis. There is a moderate amount of mitral regurgitation There is no aortic valvular vegetation. There is no aortic valve stenosis There is no LVOT obstruction. No aortic regurgitation is present. There is no tricuspid stenosis. There is a trace to mild amount of tricuspid regurgitation There is mild pulmonary hypertension by echo RVSP is 32 to 37 mm of Hg , with RA mean of 10 to 15. There is no pulmonic valvular regurgitation. The aortic root is normal size. The inferior vena cava appeared normal and decreased < 50% with respiration (RAP 10-15 mmHg) Minimal pericardial effusion. There are no echocardiographic or Doppler indications for cardiac tamponade MMode/2D Measurements & Calculations RVDd: 3.4 cm LVIDd: 5.5 cm FS: 22.2 % Ao root diam: 2.9 cm IVSd: 1.2 cm LVIDs: 4.2 cm EDV(Teich): 144.8 ml Ao root area: 6.6 cm2 LVPWd: 1.2 cm ESV(Teich): 80.7 ml EF(Teich): 44.2 % Doppler Measurements & Calculations Ao V2 max: LV V1 max PG: PA V2 max: TR max theo: 154.0 cm/sec 4.2 mmHg 66.2 cm/sec 232.2 cm/sec Ao max P.5 mmHg LV V1 max: PA max PG: TR max P.6 mmHg 102.4 cm/sec 1.8 mmHg Left Ventricle The left ventricle is mildly dilated. There is mild concentric left ventricular hypertrophy. LV EF is 40%. Left ventricular systolic function is moderately reduced. Doppler measurements suggest impaired left ventricular relaxation, which is associated with grade I/IV or mild diastolic dysfunction. There is moderate global hypokinesis of the left ventricle. There is no thrombus. No ASD or VSD seen. Right Ventricle The right ventricle is grossly normal size. The right ventricle is not well visualized secondary to technical limitations. Atria The right atrium is normal. The left atrium is moderately dilated. Mitral Valve There is no evidence of mitral valve prolapse. There is no vegetation seen on the mitral valve. There is no mitral valve stenosis. There is a moderate amount of mitral regurgitation. Aortic Valve There is no aortic valvular vegetation. There is no aortic valve stenosis. There is no LVOT obstruction. No aortic regurgitation is present. Tricuspid Valve There is no tricuspid stenosis. There is a trace to mild amount of tricuspid regurgitation. There is mild pulmonary hypertension by echo. RVSP is 32 to 37 mm of Hg , with RA mean of 10 to 15. Pulmonic Valve There is no pulmonic valvular stenosis. There is no pulmonic valvular regurgitation. Great Vessels The aortic root is normal size. The inferior vena cava appeared normal and decreased < 50% with respiration (RAP 10-15 mmHg). Effusions Minimal pericardial effusion. There are no echocardiographic or Doppler indications for cardiac tamponade. : NELSON ONEAL Lakshmi
[2019-06-22] MEDS ORDERED: CLONIDINE HCL 0.1 MG TABLET PO SCH (22:00)
[2019-06-22] MEDS ORDERED: (PENDING PHARMACY ID) (Lovastatin [Altoprev] 40 MG) PO SCH (22:00)
[2019-06-22] MEDS ORDERED: ATORVASTATIN CALCIUM 10 MG TABLET PO SCH ×2 (22:00)
[2019-06-23] MEDS: HEPARIN SOD (PORCINE) 5,000 UNIT/ML 1 ML VIAL SUBCUT SCH ×3 (06:19→21:13)
[2019-06-23 07:35] LABS: HEMATOCRIT 41.9 % (37.9-51.0); HEMOGLOBIN 13.7 g/dL (13.5-17.0); MEAN CORPUSCULAR HEMOGLOBIN 30.3 pg (27.0-33.4); MEAN CORPUSCULAR HGB CONC 32.6 g/dL (32.0-36.0); MEAN CORPUSCULAR VOLUME 93 fl (80-97); PLATELET COUNT 218 10^3/uL (150-450); RED BLOOD COUNT 4.52 10^6/uL (4.35-5.55); RED CELL DISTRIBUTION WIDTH 13.9 % (11.5-14.0); WHITE BLOOD COUNT 5.4 10^3/uL (4.0-10.5)
[2019-06-23 08:01] LABS: ANION GAP 15 (5-19); BLOOD UREA NITROGEN 23 mg/dL (7-20); CALCIUM 9.5 mg/dL (8.4-10.2); CARBON DIOXIDE 23 mmol/L (22-30); CHLORIDE 102 mmol/L (98-107); GLUCOSE 149 mg/dL (75-110)
[2019-06-23 08:28] LABS: POTASSIUM 3.4 mmol/L (3.6-5.0)
[2019-06-23] MEDS: INSULIN REG, HUMAN 100 UNIT/ML 3 ML VIAL (PYX) SUBCUT SCH ×4 (09:40→21:13)
[2019-06-23] MEDS: METOPROLOL SUCCINATE 25 MG TAB.SR.24H PO SCH ×2 (09:41→21:06)
[2019-06-23] MEDS: ISOSORB DINIT/HYDRALAZINE HCL 20-37.5 MG TABLET PO SCH ×3 (09:41→17:33)
[2019-06-23] MEDS: FAMOTIDINE 20 MG TABLET PO SCH ×2 (09:41→21:37)
[2019-06-23] MEDS: DOCUSATE SODIUM 100 MG CAPSULE PO SCH ×2 (09:41→17:33)
[2019-06-23] MEDS: FUROSEMIDE INJ/PF 40 MG/4 ML SDV IV SCH (09:41)
[2019-06-23] MEDS ORDERED: AMLODIPINE BESYLATE 10 MG TABLET PO SCH (10:00)
--- NOTE | 2019-06-23 12:58 | PDOC PROGRESS REPORT ---
Subjective Progress Note for:: 06/23/19 Subjective:: The patient is a 68-year-old male with a past medical history of hyperlipidemia, hypertension, DM 2, who was admitted 06/21/2019 for Acute respiratory failure with hypoxia secondary to an acute CHF exacerbation. The patient was seen on morning rounds with his present. He was found resting in bed comfortably on supplemental oxygen via nasal cannula; he is not home O2 dependent. He reports that his breathing is much improved; no dyspnea at rest or orthopnea. He reports that he is feeling well and is hopeful to be discharged to home shortly. He further denies fever, chills, chest pain, palpitations, cough, abdominal pain, nausea vomiting and diarrhea. He has no questions or concerns at this time. No concerns per nursing. Reason For Visit: DYSPNEA, ORTHOPNEA Physical Exam Vital Signs: Temp Pulse Resp BP Pulse Ox 97.6 F 73 15 111/84 100 06/23/19 07:56 06/23/19 07:56 06/23/19 07:56 06/23/19 07:56 06/23/19 07:56 Intake & Output 06/22/19 06/23/19 06/24/19 06:59 06:59 06:59 Intake Total 200 1112 Output Total 200 1105 Balance 0 7 Weight 93.1 kg 93.5 kg General appearance: PRESENT: no acute distress, cooperative, well-developed, well-nourished Head exam: PRESENT: atraumatic, normocephalic Eye exam: PRESENT: conjunctiva pink, EOMI, PERRLA. ABSENT: scleral icterus Ear exam: PRESENT: normal external ear exam Mouth exam: PRESENT: moist, tongue midline Neck exam: ABSENT: carotid bruit, JVD, lymphadenopathy, thyromegaly Respiratory exam: PRESENT: clear to auscultation tameka, symmetrical, unlabored, other - Supplemental oxygen via nasal cannula. ABSENT: rales, rhonchi, wheezes Cardiovascular exam: PRESENT: RRR, +S1, +S2. ABSENT: diastolic murmur, rubs, systolic murmur Pulses: PRESENT: normal dorsalis pedis pul Vascular exam: PRESENT: normal capillary refill GI/Abdominal exam: PRESENT: normal bowel sounds, soft. ABSENT: distended, guarding, mass, organolmegaly, rebound, tenderness Rectal exam: PRESENT: deferred Extremities exam: PRESENT: full ROM. ABSENT: calf tenderness, clubbing, pedal edema Neurological exam: PRESENT: alert, awake, oriented to person, oriented to place, oriented to time, oriented to situation, CN II-XII grossly intact. ABSENT: motor sensory deficit Psychiatric exam: PRESENT: appropriate affect, normal mood. ABSENT: homicidal ideation, suicidal ideation Skin exam: PRESENT: dry, intact, warm. ABSENT: cyanosis, rash Results Laboratory Results: 06/23/19 06:27 06/23/19 06:27 06/23/19 06/23/19 06/23/19 04:17 04:17 06:27 WBC Cancelled 5.4 RBC Cancelled 4.52 Hgb Cancelled 13.7 Hct Cancelled 41.9 MCV Cancelled 93 MCH Cancelled 30.3 MCHC Cancelled 32.6 RDW Cancelled 13.9 Plt Count Cancelled 218 Sodium Potassium Chloride Carbon Dioxide Anion Gap BUN Creatinine Est GFR ( Amer) Glucose Calcium Magnesium 06/23/19 06:27 WBC RBC Hgb Hct MCV MCH MCHC RDW Plt Count Sodium 140.4 Potassium 3.4 L Chloride 102 Carbon Dioxide 23 Anion Gap 15 BUN 23 H Creatinine 1.65 H Est GFR ( Amer) 50 L Glucose 149 H Calcium 9.5 Magnesium 06/21/19 06/21/19 06/22/19 15:30 20:02 01:49 Creatine Kinase 154 CK-MB (CK-2) Troponin I 0.048 0.060 NT-Pro-B Natriuret Pep 1520 H 06/22/19 06/22/19 06/22/19 01:49 08:03 08:03 Creatine Kinase 154 CK-MB (CK-2) 3.23 3.16 Troponin I 0.076 0.071 NT-Pro-B Natriuret Pep 06/22/19 06/22/19 14:41 14:41 Creatine Kinase 280 H CK-MB (CK-2) 3.17 Troponin I 0.068 NT-Pro-B Natriuret Pep Impressions: Chest X-Ray 06/21/19 15:04 IMPRESSION: Small amount of left basilar airspace disease- subsegmental atelectasis. No significant pleural effusion. Venous Doppler Study 06/22/19 00:00 IMPRESSION: NO EVIDENCE DVT OR SVT IN THE LEFT LEG. Assessment and Plan - Diagnosis (1) Acute congestive heart failure Qualifiers: Heart failure type: systolic Qualified Code(s): I50.21 - Acute systolic (congestive) heart failure Is this a current diagnosis for this admission?: Yes Plan: proBNP elevated 1520; no prior labs to compare to. Echocardiogram revealed LVEF of 40% with mild diastolic dysfunction. Cardiology has been consulted; appreciate Dr. Murry's input. Continue isosorbide/hydralazine. Continue metoprolol twice daily. Patient with lisinopril allergy; consider low-dose losartan. Patient was previously receiving IV furosemide twice daily; now on hold secondary to bump in creatinine. Continue cardiac diet. Daily weights, strict I&O's. Registered dietitian and special educator consulted. (2) Acute respiratory failure with hypoxia Is this a current diagnosis for this admission?: Yes Plan: Resolved; secondary to 1. Patient is now maintaining oxygen saturations while on room air. Remaining management as above. (3) Diabetes mellitus type 2 in nonobese Is this a current diagnosis for this admission?: Yes Plan: A1c of 5.5%. Continue holding metformin while admitted. Consistent carb diet. Accu-Cheks before meals and at bedtime with sliding scale insulin. Hypoglycemia protocol in place. (4) Essential hypertension Is this a current diagnosis for this admission?: Yes Plan: Well-controlled on the above-mentioned regimen. (5) Hyperlipidemia associated with type 2 diabetes mellitus Is this a current diagnosis for this admission?: Yes Plan: Lipid panel is acceptable. Continue home dose of lovastatin (6) Primary osteoarthritis involving multiple joints Is this a current diagnosis for this admission?: Yes Plan: Pain is adequately controlled with as needed Tylenol. (7) Tobacco use disorder, moderate, dependence Is this a current diagnosis for this admission?: Yes Plan: Smoking cessation is encouraged. (8) HAILEY (acute kidney injury) Is this a current diagnosis for this admission?: Yes Plan: Secondary to diuresis with IV furosemide. Creatinine 1.65 today; Up from baseline of 0.97. Furosemide is placed on hold. Encouraged p.o. fluids. Follow-up chemistry. - Plan Summary Summary: Patient will be admitted to medical floor where he will receive routine supportive and symptomatic cares. He will be treated with intravenous Lasix 10 mg every 6 hours. An echocardiogram will be obtained and a cardiology consultation with Dr. Sharri has been ordered. Patient will be supported with BiPAP or other respiratory intervention as required to maintain adequate oxygen saturation. He will be continued on his usual home medications as appropriate. He will be continued on cardiac and diabetic restricted diet. Before meals and at bedtime Accu-Cheks will be obtained with sliding scale insulin for hyperglycemia and a hypoglycemic protocol in place. Patient will use morphine sulfate 2 mg IV every hour as needed for severe dyspnea. - Time Time Spent with patient: 35 or more minutes Medications reviewed and adjusted accordingly: Yes Anticipated discharge: Home Within: within 72 hours - improved Creatinine/BUN
--- NOTE | 2019-06-23 19:33 | Progress Note ---
Provider Note Provider Note: CARDIOLOGY PROGRESS NOTE by Dr. Concha Harrell on 06/23/2019. OBJECTIVE: The patient states he feels much better. There is no chest pain or discomfort. He denies any shortness of breath at rest. There is no PND orthopnea or leg edema. There is no arrhythmia seen. The patient denies any palpitations. There is no TIA CVA symptoms. There is no pedal edema. Physical EXAMINATION: The patient is well-built and well-nourished. He is in no acute distress. Selected Entries 06/23/19 06/23/19 12:02 16:08 Temperature 98.5 F 98.6 F Temperature Oral Oral Source Pulse Rate 85 76 Respiratory 16 15 Rate Blood Pressure 128/90 H Blood Pressure 102 Mean BP Location Left Arm BP Position Sitting O2 Sat by Pulse 95 98 Oximetry Oxygen Flow 2.00 Rate Oxygen Delivery Nasal Cannula Room Air Method HEAD: Is atraumatic normocephalic. EYES: Pupils are equal round regular reactive to light and accommodation. Extraocular movements are normal. There is no conjunctival pallor. There is no scleral icterus. Ears: Tympanic membranes are intact. External auditory canals are clear. NOSE: There is no deviated nasal septum. There is no inflammation nasal mucous membrane. MOUTH: Mucous membranes of the mouth are moist. Tongue is moist. There is no ulcers. There is no bleeding from the gums. THROAT: There is no redness of the oropharynx. There is no exudates. SKIN: There is no skin lesions or skin rashes. There is no petechia or ecchymosis. NECK: Supple. There is no JVD. Carotids are equal there is no bruit there is no lymphadenopathy. NECK: Supple. At present there is no JVD. Carotids are equal there is no bruit. There is no lymphadenopathy. There is no goiter. There is no accessory muscle respiration use. Trachea central. LUNGS: There is suggestion of mildly increased expiration. Breath sounds are normal. There is some degree of hyperresonance. There is no rales of CHF. HEART: S1-S2 is heard. There is no S3 gallop. There is no S4 gallop. There is murmur of mitral regurgitation present. There is no rub. ABDOMEN: Is soft. There is no hepatosplenomegaly. Bowel sounds are well heard. EXTREMITIES: Femorals are well felt. There is no femoral bruits. Leg pulses are well felt. There is no pedal edema. There is no DVT or cellulitis. There is no calf tenderness. There is no cyanosis or clubbing. MACHINIST AUTOMOTIVE: The patient is conscious awake alert oriented x3 no focal deficits. PSYCHIATRIC: Patient judgment site are intact. His affect is normal. Labs- All tests 24 hr 06/22/19 06/23/19 06/23/19 20:53 04:17 04:17 WBC Cancelled RBC Cancelled Hgb Cancelled Hct Cancelled MCV Cancelled MCH Cancelled MCHC Cancelled RDW Cancelled Plt Count Cancelled Platelet Estimate Cancelled Sodium Potassium Chloride Carbon Dioxide Anion Gap BUN Creatinine Est GFR ( Amer) Est GFR (MDRD) Non-Af Glucose POC Glucose 140 H Calcium Magnesium Slides for Path Review Cancelled 06/23/19 06/23/19 06/23/19 05:34 06:27 06:27 WBC 5.4 RBC 4.52 Hgb 13.7 Hct 41.9 MCV 93 MCH 30.3 MCHC 32.6 RDW 13.9 Plt Count 218 Platelet Estimate Sodium 140.4 Potassium 3.4 L Chloride 102 Carbon Dioxide 23 Anion Gap 15 BUN 23 H Creatinine 1.65 H Est GFR ( Amer) 50 L Est GFR (MDRD) Non-Af 41 L Glucose 149 H POC Glucose 148 H Calcium 9.5 Magnesium Slides for Path Review 06/23/19 06/23/19 06/23/19 07:57 12:03 16:10 WBC RBC Hgb Hct MCV MCH MCHC RDW Plt Count Platelet Estimate Sodium Potassium Chloride Carbon Dioxide Anion Gap BUN Creatinine Est GFR ( Amer) Est GFR (MDRD) Non-Af Glucose POC Glucose 164 H 142 H 112 H Calcium Magnesium Slides for Path Review Chest X-Ray 06/21/19 15:04 IMPRESSION: Small amount of left basilar airspace disease- subsegmental atelectasis. No significant pleural effusion. Venous Doppler Study 06/22/19 00:00 IMPRESSION: NO EVIDENCE DVT OR SVT IN THE LEFT LEG. IMPRESSION RECOMMENDATION 1. Congestive heart failure seems to be acute in onset given the timeframe of symptom and etiology of 3 to 4 days. Agree with current diuretics. Would recommend stop the patient's clonidine. Start the patient on a beta-stephanie such as Toprol-XL in view of the patient's cardiomyopathy. Also would recommend starting the patient on BiDil. This is because the patient is severe angioedema with lisinopril and there is a small percentage of cross sensitivity with ARB. The patient is tolerating BiDil. In view of the cost would break it into 2 separate pills of isosorbide dinitrate and hydralazine. 2. Cardiomyopathy with moderately reduced LV ejection fraction. 3. COPD: History of tobacco abuse. Most likely there is some element aphasia acute exacerbation of COPD. Would recommend continue the patient on bronchodilators. There is no evidence of infection hence would hold off on antibiotics. 4. Hypertension: Blood pressure well controlled. 5. Diabetes mellitus type 2 [id number]: Continue current medical regimen. 6. Multiple CAD risk factors namely age, hypertension, diabetes mellitus, and tobacco abuse disorder. Also with LV dysfunction. Later would recommend once heart failure is controlled would recommend getting IV Lexiscan Cardiolite stress test. This can be done as an outpatient. This has been discussed with the patient. Cardiac status of status stable. Would recommend discharge the patient home on current medication. Will follow the patient in the office as the patient desires so. Medical decision making is of moderate complexity. 40 minutes spent with patient with more than 50% of time spent in direct patient care. Medical regimen and management plan discussed with the attending provider on the case. Will follow.
[2019-06-23] MEDS: ISOSORBIDE DINITRATE 20 MG TABLET PO SCH (23:53)
[2019-06-23] MEDS: HYDRALAZINE HCL 25 MG TABLET PO SCH (23:53)
[2019-06-24] MEDS: HEPARIN SOD (PORCINE) 5,000 UNIT/ML 1 ML VIAL SUBCUT SCH ×3 (05:26→21:32)
[2019-06-24] MEDS: HYDRALAZINE HCL 25 MG TABLET PO SCH ×4 (05:28→23:42)
[2019-06-24] MEDS: ISOSORBIDE DINITRATE 20 MG TABLET PO SCH ×4 (05:28→23:42)
[2019-06-24 07:21] LABS: HEMATOCRIT 40.8 % (37.9-51.0); HEMOGLOBIN 13.4 g/dL (13.5-17.0); MEAN CORPUSCULAR HEMOGLOBIN 30.2 pg (27.0-33.4); MEAN CORPUSCULAR HGB CONC 32.8 g/dL (32.0-36.0); MEAN CORPUSCULAR VOLUME 92 fl (80-97); PLATELET COUNT 212 10^3/uL (150-450); RED BLOOD COUNT 4.44 10^6/uL (4.35-5.55); RED CELL DISTRIBUTION WIDTH 13.8 % (11.5-14.0); WHITE BLOOD COUNT 5.4 10^3/uL (4.0-10.5)
[2019-06-24 07:41] LABS: ANION GAP 11 (5-19); BLOOD UREA NITROGEN 24 mg/dL (7-20); CALCIUM 9.6 mg/dL (8.4-10.2); CARBON DIOXIDE 27 mmol/L (22-30); CHLORIDE 101 mmol/L (98-107); GLUCOSE 132 mg/dL (75-110); POTASSIUM 3.8 mmol/L (3.6-5.0)
[2019-06-24] MEDS: INSULIN REG, HUMAN 100 UNIT/ML 3 ML VIAL (PYX) SUBCUT SCH ×4 (09:01→21:32)
[2019-06-24] MEDS: DOCUSATE SODIUM 100 MG CAPSULE PO SCH ×2 (09:37→18:23)
[2019-06-24] MEDS: FAMOTIDINE 20 MG TABLET PO SCH ×2 (09:39→21:38)
[2019-06-24] MEDS: METOPROLOL SUCCINATE 25 MG TAB.SR.24H PO SCH ×2 (09:39→21:33)
[2019-06-24] MEDS: NORMAL SALINE 1000 ML 1,000 ML IV PRN ×2 (09:50→21:38)
[2019-06-24 16:26] LABS: ANION GAP 9 (5-19); BLOOD UREA NITROGEN 24 mg/dL (7-20); CALCIUM 9.1 mg/dL (8.4-10.2); CARBON DIOXIDE 25 mmol/L (22-30); CHLORIDE 102 mmol/L (98-107); GLUCOSE 111 mg/dL (75-110); POTASSIUM 3.4 mmol/L (3.6-5.0)
--- NOTE | 2019-06-24 16:50 | PDOC PROGRESS REPORT ---
Subjective Progress Note for:: 06/24/19 Subjective:: The patient is a 68-year-old male with a past medical history of hyperlipidemia, hypertension, DM 2, who was admitted 06/21/2019 for Acute respiratory failure with hypoxia secondary to an acute CHF exacerbation. The patient was seen on morning rounds. He was found ambulating in his room, comfortably, on room air. He reports that his breathing is much improved; no dyspnea, orthopnea, or cough. He reports that he is feeling well and is hopeful to be discharged to home shortly. He further denies fever, chills, chest pain, palpitations, cough, abdominal pain, nausea, vomiting, and diarrhea. He has no questions or concerns at this time. No concerns per nursing. Reason For Visit: DYSPNEA, ORTHOPNEA Physical Exam Vital Signs: Temp Pulse Resp BP Pulse Ox 98.3 F 77 19 123/93 H 98 06/24/19 12:00 06/24/19 14:00 06/24/19 12:00 06/24/19 12:00 06/24/19 12:00 Intake & Output 06/23/19 06/24/19 06/25/19 06:59 06:59 06:59 Intake Total 1112 1745 558 Output Total 5411 456 0423 Balance 7 1165 -592 Weight 93.5 kg 93.3 kg General appearance: PRESENT: no acute distress, cooperative, well-developed, well-nourished Head exam: PRESENT: atraumatic, normocephalic Eye exam: PRESENT: conjunctiva pink, EOMI, PERRLA. ABSENT: scleral icterus Ear exam: PRESENT: normal external ear exam Mouth exam: PRESENT: moist, tongue midline Neck exam: ABSENT: carotid bruit, JVD, lymphadenopathy, thyromegaly Respiratory exam: PRESENT: clear to auscultation tameka, symmetrical, unlabored. ABSENT: rales, rhonchi, wheezes Cardiovascular exam: PRESENT: RRR, +S1, +S2. ABSENT: diastolic murmur, rubs, systolic murmur Pulses: PRESENT: normal dorsalis pedis pul Vascular exam: PRESENT: normal capillary refill GI/Abdominal exam: PRESENT: normal bowel sounds, soft. ABSENT: distended, guarding, mass, organolmegaly, rebound, tenderness Rectal exam: PRESENT: deferred Extremities exam: PRESENT: full ROM. ABSENT: calf tenderness, clubbing, pedal edema Musculoskeletal exam: PRESENT: ambulatory Neurological exam: PRESENT: alert, awake, oriented to person, oriented to place, oriented to time, oriented to situation, CN II-XII grossly intact. ABSENT: motor sensory deficit Psychiatric exam: PRESENT: appropriate affect, normal mood. ABSENT: homicidal ideation, suicidal ideation Skin exam: PRESENT: dry, intact, warm. ABSENT: cyanosis, rash Results Laboratory Results: 06/24/19 06:30 06/24/19 15:50 06/24/19 06/24/19 06/24/19 06:30 06:30 15:50 WBC 5.4 RBC 4.44 Hgb 13.4 L Hct 40.8 MCV 92 MCH 30.2 MCHC 32.8 RDW 13.8 Plt Count 212 Sodium 139.1 135.6 L Potassium 3.8 3.4 L Chloride 101 102 Carbon Dioxide 27 25 Anion Gap 11 9 BUN 24 H 24 H Creatinine 1.54 H 1.44 H Est GFR ( Amer) 54 L 59 L Glucose 132 H 111 H Calcium 9.6 9.1 06/21/19 06/21/19 06/22/19 15:30 20:02 01:49 Creatine Kinase 154 CK-MB (CK-2) Troponin I 0.048 0.060 NT-Pro-B Natriuret Pep 1520 H 06/22/19 06/22/19 06/22/19 01:49 08:03 08:03 Creatine Kinase 154 CK-MB (CK-2) 3.23 3.16 Troponin I 0.076 0.071 NT-Pro-B Natriuret Pep 06/22/19 06/22/19 14:41 14:41 Creatine Kinase 280 H CK-MB (CK-2) 3.17 Troponin I 0.068 NT-Pro-B Natriuret Pep Impressions: Chest X-Ray 06/21/19 15:04 IMPRESSION: Small amount of left basilar airspace disease- subsegmental atelectasis. No significant pleural effusion. Venous Doppler Study 06/22/19 00:00 IMPRESSION: NO EVIDENCE DVT OR SVT IN THE LEFT LEG. Assessment and Plan - Diagnosis (1) HAILEY (acute kidney injury) Is this a current diagnosis for this admission?: Yes Plan: Gradual improvement. Secondary to diuresis with IV furosemide. Creatinine 1.65-> 1.44 today; Up from baseline of 0.97. Furosemide is placed on hold. IVF x 2L Encouraged p.o. fluids. Avoid nephrotoxic medications. Follow-up chemistry. (2) Acute congestive heart failure Qualifiers: Heart failure type: systolic Qualified Code(s): I50.21 - Acute systolic (congestive) heart failure Is this a current diagnosis for this admission?: Yes Plan: Improved; now asymptomatic w/ clear lung sounds and maintaining oxygen saturations on room air. proBNP elevated 1520; no prior labs to compare to. Echocardiogram revealed LVEF of 40% with mild diastolic dysfunction. Cardiology has been consulted; appreciate Dr. Murry's input. Continue isosorbide/hydralazine. Continue metoprolol twice daily. Patient with lisinopril allergy; consider low-dose losartan. Will defer medication management to Cardiology. Patient was previously receiving IV furosemide twice daily; now on hold secondary to bump in creatinine. Dr. Murry recommend furosemide 20 mg p.o daily at discharge. Continue cardiac diet. Daily weights, strict I&O's. Registered dietitian and crushing foreman consulted. (3) Acute respiratory failure with hypoxia Is this a current diagnosis for this admission?: Yes Plan: Resolved; secondary to #2. Patient is now maintaining oxygen saturations while on room air. Remaining management as above. (4) Diabetes mellitus type 2 in nonobese Is this a current diagnosis for this admission?: Yes Plan: A1c of 5.5%. Continue holding metformin while admitted. Consistent carb diet. Accu-Cheks before meals and at bedtime with sliding scale insulin. Hypoglycemia protocol in place. (5) Essential hypertension Is this a current diagnosis for this admission?: Yes Plan: Well-controlled on the above-mentioned regimen. (6) Hyperlipidemia associated with type 2 diabetes mellitus Is this a current diagnosis for this admission?: Yes Plan: Lipid panel is acceptable. Continue home dose of lovastatin (7) Primary osteoarthritis involving multiple joints Is this a current diagnosis for this admission?: Yes Plan: Pain is adequately controlled with as needed Tylenol. (8) Tobacco use disorder, moderate, dependence Is this a current diagnosis for this admission?: Yes Plan: Smoking cessation is encouraged. - Time Time Spent with patient: 25-34 minutes Medications reviewed and adjusted accordingly: Yes Anticipated discharge: Home Within: within 24 hours - if Creatinine continues to improve.
--- NOTE | 2019-06-24 19:17 | Progress Note ---
Provider Note Provider Note: CARDIOLOGY progress note by Dr. Concha Harrell on 06/24/2019. Subjective: The patient denies any chest pain or discomfort. There is no PND orthopnea. There is no cough or sputum production. There is no arrhythmia seen on the monitor. Note the patient went into acute renal failure most likely secondary to overdiuresis. His diuretics have been stopped. The patient is now on IV fluids gently. This I agree with We will recheck the patient's SMA7 later today. Physical EXAMINATION: The patient is well-built and well-nourished. In no acute distress. Selected Entries 06/24/19 06/24/19 12:00 19:31 Temperature 98.3 F 98.4 F Temperature Oral Oral Source Pulse Rate 84 93 Respiratory 19 16 Rate Blood Pressure 107/78 Blood Pressure 123/93 H [Left Upper Arm ] Blood Pressure 87 Mean Blood Pressure 103 Mean [Left Upper Arm] Blood Pressure Supine Position [Left Upper Arm] BP Location Left Arm BP Position Supine O2 Sat by Pulse 98 97 Oximetry Oxygen Delivery Room Air Method ( includes room air) Oxygen Delivery Room Air Method HEAD: Is atraumatic normocephalic. EYES: Pupils are equal round regular reactive to light and accommodation. Extraocular movements are normal. There is no conjunctival pallor. There is no scleral icterus. Ears: Tympanic membranes are intact. External auditory canals are clear. NOSE: There is no deviated nasal septum. There is no inflammation nasal mucous membrane. MOUTH: Mucous membranes of the mouth are moist. Tongue is moist. There is no ulcers. There is no bleeding from the gums. THROAT: There is no redness of the oropharynx. There is no exudates. SKIN: There is no skin lesions or skin rashes. There is no petechia or ecchymosis. NECK: Supple. There is no JVD. Carotids are equal there is no bruit there is no lymphadenopathy. NECK: Supple. At present there is no JVD. Carotids are equal there is no bruit. There is no lymphadenopathy. There is no goiter. There is no accessory muscle respiration use. Trachea central. LUNGS: There is suggestion of mildly increased expiration. Breath sounds are normal. There is some degree of hyperresonance. There is no rales of CHF. HEART: S1-S2 is heard. There is no S3 gallop. There is no S4 gallop. There is murmur of mitral regurgitation present. There is no rub. ABDOMEN: Is soft. There is no hepatosplenomegaly. Bowel sounds are well heard. EXTREMITIES: Femorals are well felt. There is no femoral bruits. Leg pulses are well felt. There is no pedal edema. There is no DVT or cellulitis. There is no calf tenderness. There is no cyanosis or clubbing. OUTBOARD MOTOR TESTER: The patient is conscious awake alert oriented x3 no focal deficits. PSYCHIATRIC: Patient judgment site are intact. His affect is normal. Labs- All tests 24 hr 06/24/19 06/24/19 06/24/19 06:30 06:30 08:01 WBC 5.4 RBC 4.44 Hgb 13.4 L Hct 40.8 MCV 92 MCH 30.2 MCHC 32.8 RDW 13.8 Plt Count 212 Sodium 139.1 Potassium 3.8 Chloride 101 Carbon Dioxide 27 Anion Gap 11 BUN 24 H Creatinine 1.54 H Est GFR ( Amer) 54 L Est GFR (MDRD) Non-Af 45 L Glucose 132 H POC Glucose 153 H Calcium 9.6 06/24/19 06/24/19 06/24/19 11:59 15:50 15:53 WBC RBC Hgb Hct MCV MCH MCHC RDW Plt Count Sodium 135.6 L Potassium 3.4 L Chloride 102 Carbon Dioxide 25 Anion Gap 9 BUN 24 H Creatinine 1.44 H Est GFR ( Amer) 59 L Est GFR (MDRD) Non-Af 48 L Glucose 111 H POC Glucose 134 H 113 H Calcium 9.1 06/24/19 21:11 WBC RBC Hgb Hct MCV MCH MCHC RDW Plt Count Sodium Potassium Chloride Carbon Dioxide Anion Gap BUN Creatinine Est GFR ( Amer) Est GFR (MDRD) Non-Af Glucose POC Glucose 132 H Calcium Chest X-Ray 06/21/19 15:04 IMPRESSION: Small amount of left basilar airspace disease- subsegmental atelectasis. No significant pleural effusion. Venous Doppler Study 06/22/19 00:00 IMPRESSION: NO EVIDENCE DVT OR SVT IN THE LEFT LEG. IMPRESSION RECOMMENDATION 1. Acute renal failure: This is secondary to overdiuresis. We will hold the patient diuretics. We will hydrate the patient. 2. Congestive heart failure seems to be acute in onset given the timeframe of symptom and etiology of 3 to 4 days. Agree with current diuretics. Would recommend stop the patient's clonidine. Start the patient on a beta-stephanie such as Toprol-XL in view of the patient's cardiomyopathy. Also would recommend starting the patient on BiDil. This is because the patient is severe angioedema with lisinopril and there is a small percentage of cross sensitivity with ARB. The patient is tolerating BiDil. In view of the cost would break it into 2 separate pills of isosorbide dinitrate and hydralazine. 3. Cardiomyopathy with moderately reduced LV ejection fraction. 4. COPD: History of tobacco abuse. Most likely there is some element aphasia acute exacerbation of COPD. Would recommend continue the patient on bronchodilators. There is no evidence of infection hence would hold off on antibiotics. 5. Hypertension: Blood pressure well controlled. 6. Diabetes mellitus type 2 [id number]: Continue current medical regimen. 7. Multiple CAD risk factors namely age, hypertension, diabetes mellitus, and tobacco abuse disorder. Also with LV dysfunction. Later would recommend once heart failure is controlled would recommend getting IV Lexiscan Cardiolite stress test. This can be done as an outpatient. This has been discussed with the patient. Medications reviewed. Medical regimen and management plan discussed with attending provider on the case. Medical decision making is of high complexity. 40 minutes spent as patient more than 50% of time spent in direct patient care. Will follow
[2019-06-25 05:22] LABS: ANION GAP 9 (5-19); BLOOD UREA NITROGEN 18 mg/dL (7-20); CALCIUM 8.9 mg/dL (8.4-10.2); CARBON DIOXIDE 22 mmol/L (22-30); CHLORIDE 110 mmol/L (98-107); GLUCOSE 132 mg/dL (75-110); POTASSIUM 3.4 mmol/L (3.6-5.0)
[2019-06-25] MEDS: ISOSORBIDE DINITRATE 20 MG TABLET PO SCH (06:15)
[2019-06-25] MEDS: HYDRALAZINE HCL 25 MG TABLET PO SCH (06:15)
[2019-06-25] MEDS: HEPARIN SOD (PORCINE) 5,000 UNIT/ML 1 ML VIAL SUBCUT SCH (06:15)
[2019-06-25] MEDS: INSULIN REG, HUMAN 100 UNIT/ML 3 ML VIAL (PYX) SUBCUT SCH (08:20)
[2019-06-25] MEDS: DOCUSATE SODIUM 100 MG CAPSULE PO SCH (09:26)
[2019-06-25] MEDS: FAMOTIDINE 20 MG TABLET PO SCH (09:26)
[2019-06-25] MEDS: METOPROLOL SUCCINATE 25 MG TAB.SR.24H PO SCH (09:26)
[2019-06-25 10:52] VITALS: BP 193/83
--- NOTE | 2019-06-25 14:43 | PDOC DISCHARGE SUMMARY ---
Impression - Admit/DC Date/PCP Admission Date/Primary Care Provider: 06/21/19 23:42 ALEXANDER VELASQUEZ MD Discharge Date: 06/25/19 - Discharge Diagnosis (1) HAILEY (acute kidney injury) Is this a current diagnosis for this admission?: Yes (2) Acute congestive heart failure Is this a current diagnosis for this admission?: Yes (3) Acute respiratory failure with hypoxia Is this a current diagnosis for this admission?: Yes (4) Diabetes mellitus type 2 in nonobese Is this a current diagnosis for this admission?: Yes (5) Essential hypertension Is this a current diagnosis for this admission?: Yes (6) Hyperlipidemia associated with type 2 diabetes mellitus Is this a current diagnosis for this admission?: Yes (7) Primary osteoarthritis involving multiple joints Is this a current diagnosis for this admission?: Yes (8) Tobacco use disorder, moderate, dependence Is this a current diagnosis for this admission?: Yes - Additional Information Resuscitation Status: Full Code Discharge Diet: Cardiac, Diabetic Discharge Activity: Activity As Tolerated, Balance Activity w/Rest, Weigh Daily Referrals: RILEY MULTANI MD [ACTIVE STAFF] - 07/09/19 11:00 am Prescriptions: Hydralazine HCl [Apresoline 25 mg Tablet] 25 mg PO Q6 #120 tablet Isosorbide Dinitrate [Isordil Titradose 20 mg Tablet] 20 mg PO Q6 #120 tablet Furosemide [Lasix 20 mg Tablet] 20 mg PO QAM #30 tablet Metoprolol Succinate [Toprol Xl 25 mg Tab.sr] 25 mg PO Q12 #60 tab.sr.24h Home Medications: Metformin HCl [Glucophage 500 mg Tablet] 500 mg PO BID 10/03/11 Omeprazole [Prilosec 20 mg Capsule] 20 mg PO DAILY 10/03/11 Terazosin HCl 20 mg PO DAILY 10/03/11 Lovastatin [Altoprev] 40 mg PO QHS 06/22/19 Meloxicam [Mobic] 15 mg PO DAILYP PRN 06/22/19 Acetaminophen [Tylenol 325 mg Tablet] 650 mg PO Q4HP PRN tablet 06/25/19 Furosemide [Lasix 20 mg Tablet] 20 mg PO QAM #30 tablet 06/25/19 Hydralazine HCl [Apresoline 25 mg Tablet] 25 mg PO Q6 #120 tablet 06/25/19 Isosorbide Dinitrate [Isordil Titradose 20 mg Tablet] 20 mg PO Q6 #120 tablet 06/25/19 Metoprolol Succinate [Toprol Xl 25 mg Tab.sr] 25 mg PO Q12 #60 tab.sr.24h 06/25/19 History of Present Illiness History of Present Illness: Per H&P by Dr. Ladd: LUCIE ANDREWS is a 68 year old male who presented to the emergency room with a 3-day history of dyspnea. He admits that over the last 3 days his respiratory symptoms have progressively worsened from initial minimal dyspnea with mild chest congestion to today's severe dyspnea causing him to come to the emergency room. His dyspnea has been associated with orthopnea and is worsened on exertion. His dyspnea has been accompanied by a cough productive of small amounts of white sputum. He denies other associated or accompanying signs and symptoms. He denies prior similar episodes. He has not identified any additional aggravating or ameliorating factors for his dyspnea. In the emergency room he was found to have hypoxia and increased work of breathing, requiring BiPAP therapy. Hospital Course Hospital Course: The patient was admitted to the medical floor and monitored on continuous cardiac telemetry. He was provided IV furosemide for diuresis. Cardiology was consulted; medication management was per their expertise. The patient was placed on metoprolol, isosorbide, hydralazine, and furosemide as previously mentioned. Echocardiogram revealed LVEF of 40% with mild diastolic dysfunction; this is a new diagnosis for the patient. The patient's symptoms gradually improved and he was weaned from supplemental oxygen via nasal cannula to room air. He is now ambulatory on room air without difficulty. His A1c was found to be 5.5%. His metformin was held while admitted; he is instructed to resume this medication at discharge. His blood pressure was well controlled on the above-mentioned antihypertensives. Lipid panel was found to be acceptable and so his home dose of lovastatin was continued. The patient did develop a mild acute kidney injury related to IV furosemide. Furosemide was placed on hold and he was monitored for 1 day. His creatinine did come down slightly, though had not returned yet to baseline. Therefore, he was placed on gentle IV fluids for 24 hours with continued decrease in his creatinine. At discharge, his creatinine is 1.30 with a baseline of 0.97. Patient is encouraged to continue p.o. fluids. He is instructed to hold his furosemide today and tomorrow and to begin his new regiment on 06/27/2019. He is instructed to eat a low-sodium diet, weigh himself daily, and report any weight gain of greater than 2 pounds overnight to his provider. The patient did have the opportunity meet with the registered dietitian and the patient educator. Patient is discharged home with self-care. At time of discharge, he is asymptomatic, maintaining oxygen saturations while ambulatory on room air. He is instructed to follow-up with his primary care provider within [address] Murry as scheduled. He is advised to take his medications as prescribed. He is instructed to eat a low-sodium diet, weigh himself daily, report any weight gain of greater than 2 pounds. He is encouraged to return to the emergency department as needed for concerning symptoms. Physical Exam Vital Signs: Temp Pulse Resp BP Pulse Ox 98.6 F 77 17 193/83 H 98 06/25/19 10:47 06/25/19 10:47 06/25/19 10:47 06/25/19 10:47 06/25/19 10:47 Intake & Output 06/24/19 06/25/19 06/26/19 06:59 06:59 06:59 Intake Total 1745 4014 Output Total 580 2905 Balance 1165 1109 Weight 93.3 kg 96.3 kg General appearance: PRESENT: no acute distress, well-developed, well-nourished Head exam: PRESENT: atraumatic, normocephalic Eye exam: PRESENT: conjunctiva pink, EOMI, PERRLA. ABSENT: scleral icterus Ear exam: PRESENT: normal external ear exam Mouth exam: PRESENT: moist, tongue midline Neck exam: ABSENT: carotid bruit, JVD, lymphadenopathy, thyromegaly Respiratory exam: PRESENT: clear to auscultation [place]ka. ABSENT: rales, rhonchi, wheezes Cardiovascular exam: PRESENT: RRR. ABSENT: diastolic murmur, rubs, systolic murmur Pulses: PRESENT: normal dorsalis pedis pul Vascular exam: PRESENT: normal capillary refill GI/Abdominal exam: PRESENT: normal bowel sounds, soft. ABSENT: distended, guarding, mass, organolmegaly, rebound, tenderness Rectal exam: PRESENT: deferred Extremities exam: PRESENT: full ROM. ABSENT: calf tenderness, clubbing, pedal edema Musculoskeletal exam: PRESENT: ambulatory Neurological exam: PRESENT: alert, awake, oriented to person, oriented to place, oriented to time, oriented to situation, CN II-XII grossly intact. ABSENT: motor sensory deficit Psychiatric exam: PRESENT: appropriate affect, normal mood. ABSENT: homicidal ideation, suicidal ideation Skin exam: PRESENT: dry, intact, warm. ABSENT: cyanosis, rash Results Laboratory Results: WBC 5.4 10^3/uL (4.0-10.5) 06/24/19 06:30 RBC 4.44 10^6/uL (4.35-5.55) 06/24/19 06:30 Hgb 13.4 g/dL (13.5-17.0) L 06/24/19 06:30 Hct 40.8 % (37.9-51.0) 06/24/19 06:30 MCV 92 fl (80-97) 06/24/19 06:30 MCH 30.2 pg (27.0-33.4) 06/24/19 06:30 MCHC 32.8 g/dL (32.0-36.0) 06/24/19 06:30 RDW 13.8 % (11.5-14.0) 06/24/19 06:30 Plt Count 212 10^3/uL (150-450) 06/24/19 06:30 Lymph % (Auto) 12.3 % (13-45) L 06/21/19 15:30 [place] % (Auto) 6.5 % (3-13) 06/21/19 15:30 Eos % (Auto) 1.0 % (0-6) 06/21/19 15:30 Baso % (Auto) 0.7 % (0-2) 06/21/19 15:30 Absolute Neuts (auto) 5.6 10^3/uL (1.7-8.2) 06/21/19 15:30 Absolute Lymphs (auto) 0.9 10^3/uL (0.5-4.7) 06/21/19 15:30 Absolute Monos (auto) 0.5 10^3/uL (0.1-1.4) 06/21/19 15:30 Absolute Eos (auto) 0.1 10^3/uL (0.0-0.6) 06/21/19 15:30 Absolute Basos (auto) 0.1 10^3/uL (0.0-0.2) 06/21/19 15:30 Seg Neutrophils % 79.5 % (42-78) H 06/21/19 15:30 Platelet Estimate Cancelled 06/23/19 04:17 PT 13.0 SEC (11.4-15.4) 06/21/19 15:30 INR 0.98 06/21/19 15:30 Carbonic Acid 0.83 mmol/L (1.05-1.35) L 06/21/19 17:46 HCO3/H2CO3 Ratio 24:1 06/21/19 17:46 ABG pH 7.48 (7.35-7.45) H 06/21/19 17:46 ABG pCO2 27.5 mmHg (35-45) L 06/21/19 17:46 ABG pO2 63.2 mmHg (80-100) L 06/21/19 17:46 ABG HCO3 20.0 mmol/L (20-24) 06/21/19 17:46 ABG Total CO2 20.8 mmol/L (23-27) L 06/21/19 17:46 ABG O2 Saturation 94.0 % (94-98) 06/21/19 17:46 ABG Base Excess -2.1 mmol/L 06/21/19 17:46 FiO2 ROOM AIR 06/21/19 17:46 Sodium 141.1 mmol/L (137-145) 06/25/19 04:09 Potassium 3.4 mmol/L (3.6-5.0) L 06/25/19 04:09 Chloride 110 mmol/L (98-107) H 06/25/19 04:09 Carbon Dioxide 22 mmol/L (22-30) 06/25/19 04:09 Anion Gap 9 (5-19) 06/25/19 04:09 BUN 18 mg/dL (7-20) 06/25/19 04:09 Creatinine 1.30 mg/dL (0.52-1.25) H 06/25/19 04:09 Est GFR ( Amer) > 60 (>60) 06/25/19 04:09 Est GFR (MDRD) Non-Af 55 (>60) L 06/25/19 04:09 Glucose 132 mg/dL (75-110) H 06/25/19 04:09 POC Glucose 141 mg/dL (70-110) H 06/25/19 08:08 Hemoglobin A1c % 5.5 % (4.7-6.0) 06/22/19 08:03 Lactic Acid (Sepsis) 1.5 mmol/L (0.7-2.1) 06/21/19 15:30 Calcium 8.9 mg/dL (8.4-10.2) 06/25/19 04:09 Magnesium mg/dL (1.6-2.3) 06/23/19 04:17 Total Bilirubin 1.4 mg/dL (0.2-1.3) H 06/21/19 15:30 Direct Bilirubin 0.2 mg/dL (0.0-0.4) 06/21/19 15:30 Neonat Total Bilirubin Not Reportable 06/21/19 15:30 Neonat Direct Bilirubin Not Reportable 06/21/19 15:30 Neonat Indirect Bili Not Reportable 06/21/19 15:30 AST 21 U/L (17-59) 06/21/19 15:30 ALT 9 U/L (<50) 06/21/19 15:30 Alkaline Phosphatase 39 U/L (38-126) 06/21/19 15:30 Creatine Kinase 280 U/L (55-170) H 06/22/19 14:41 CK-MB (CK-2) 3.17 ng/mL (<4.55) 06/22/19 14:41 Troponin I 0.068 ng/mL 06/22/19 14:41 NT-Pro-B Natriuret Pep 1520 pg/mL (<125) H 06/21/19 15:30 Total Protein 6.9 g/dL (6.3-8.2) 06/21/19 15:30 Albumin 3.9 g/dL (3.5-5.0) 06/21/19 15:30 Triglycerides 55 mg/dL (<150) 06/22/19 08:03 Cholesterol 149.16 mg/dL (0-200) 06/22/19 08:03 LDL Cholesterol Direct 100 mg/dL (<100) 06/22/19 08:03 VLDL Cholesterol 11.0 mg/dL (10-31) 06/22/19 08:03 HDL Cholesterol 50 mg/dL (>40) 06/22/19 08:03 TSH 0.60 uIU/mL (0.47-4.68) 06/22/19 08:03 Urine Color YELLOW 06/21/19 16:19 Urine Appearance CLEAR 06/21/19 16:19 Urine pH 6.0 (5.0-9.0) 06/21/19 16:19 Ur Specific [place] 1.009 06/21/19 16:19 Urine Protein >=500 mg/dL (NEGATIVE) H 06/21/19 16:19 Urine Glucose (UA) NEGATIVE mg/dL (NEGATIVE) 06/21/19 16:19 Urine Ketones NEGATIVE mg/dL (NEGATIVE) 06/21/19 16:19 Urine Blood SMALL (NEGATIVE) H 06/21/19 16:19 Urine Nitrite NEGATIVE (NEGATIVE) 06/21/19 16:19 Urine Bilirubin NEGATIVE (NEGATIVE) 06/21/19 16:19 Urine Urobilinogen NEGATIVE mg/dL (<2.0) 06/21/19 16:19 Ur Leukocyte Esterase NEGATIVE (NEGATIVE) 06/21/19 16:19 Urine WBC (Auto) 0 /HPF 06/21/19 16:19 Urine RBC (Auto) 0 /HPF 06/21/19 16:19 Urine Mucus (Auto) RARE /LPF 06/21/19 16:19 Urine Ascorbic Acid NEGATIVE (NEGATIVE) 06/21/19 16:19 Slides for Path Review Cancelled 06/23/19 04:17 06/21/19 06/21/19 06/22/19 15:30 20:02 01:49 CK-MB (CK-2) 3.23 Troponin I 0.048 0.060 0.076 NT-Pro-B Natriuret Pep 1520 H 06/22/19 06/22/19 08:03 14:41 CK-MB (CK-2) 3.16 3.17 Troponin I 0.071 0.068 NT-Pro-B Natriuret Pep Impressions: Chest X-Ray 06/21/19 15:04 IMPRESSION: Small amount of left basilar airspace disease- subsegmental atelectasis. No significant pleural effusion. Venous Doppler Study 06/22/19 00:00 IMPRESSION: NO EVIDENCE DVT OR SVT IN THE LEFT LEG. Plan Plan of Treatment: The patient is discharged home to self-care. He is instructed to follow-up with his primary care provider within 1 week. He is instructed to follow-up with Dr. Multani, cardiology, as scheduled. He is advised to take his medications as prescribed, eat a low-sodium diet, and to weigh himself daily. He is instructed to return to the emergency department as needed for concerning symptoms. Time Spent: Greater than 30 Minutes Stroke Is this a Stroke Patient?: No Acute Heart Failure - Is this a Heart Failure Patient?: Yes Documentation of LVEF assessment?: Yes LVEF < 40%?: No- if no continue to question #3 a) Discharged on ACEI?: No, document contraindications Reason(s) not discharge on ACEI: Allergy 3. Anticoagulant therapy for permanect/persistent/paraoxysmal Afib or Aflutter: N/A Follow-up Appointment scheduled within 7 days?: Yes
[2019-06-26] MEDS ORDERED: FUROSEMIDE 20 MG TABLET PO SCH (10:00)
== END 2019-06-25 11:31 | disposition home or self-care (01) | DRG 189 ==
LOC: ER 14:47 → EH 23:42 → 5 06-22 00:45
PROVIDERS: ADMIT Emergency Medicine; ATTEND Emergency Medicine
PROC: 5A09457 Assistance with Respiratory Ventilation, 24-96 Consecutive Hours, Continuous Positive Airway Pressure (ICD-10-PCS; principal; 2019-06-21)
DX: J96.01 Acute respiratory failure with hypoxia (principal); I50.21 Acute systolic (congestive) heart failure; N17.9 Acute kidney failure, unspecified; I11.0 Hypertensive heart disease with heart failure; E78.5 Hyperlipidemia, unspecified; E11.8 Type 2 diabetes mellitus with unspecified complications; M19.90 Unspecified osteoarthritis, unspecified site; F17.210 Nicotine dependence, cigarettes, uncomplicated; Z79.84 Long term (current) use of oral hypoglycemic drugs; Z79.899 Other long term (current) drug therapy
CPT/HCPCS: 36415; 71045; 80048; 80053; 80061; 81001; 82550; 82553; 82803; 82962; 83036; 83605; 83735; 83880; 84443; 84484; 85025; 85027; 85610; 93005; 93010; 93306; 93971; 94640; 94660; 96374; 96375; 99285; J1644; J1815; J1940; J2930; J3490; J7030; J7620

== ENCOUNTER 2019-07-03 18:04 | Inpatient (IN) | payer MEDICARE ==
--- NOTE | 2019-07-03 18:55 | ER Document Report ---
ED General - General Chief Complaint: Breathing Difficulty Stated Complaint: TROUBLE BREATHING Time Seen by Provider: 07/03/19 18:55 Primary Care Provider: ALEXANDER VELASQUEZ MD [Primary Care Provider] - Follow up as needed TRAVEL OUTSIDE OF THE [place] IN LAST 30 DAYS: No - HPI Patient complains to provider of: SOB Notes: patient endorses SOB that came on relatively suddenly today he reports productive cough and some chills at home no leg swelling recent diagnosis and admission for CHF denies any type of pain whatsoever no h/o PE or DVT brought in by ems on cpap - Related Data Allergies/Adverse Reactions: atorvastatin [From Lipitor] Allergy (Severe, Verified 06/21/19 15:50) Swelling of Throat lisinopril Allergy (Severe, Verified 06/21/19 15:50) Swelling of Throat latex [Latex] Allergy (Intermediate, Verified 06/21/19 15:50) rash Past Medical History - Social History Smoking Status: Current Every Day Smoker Family History: DM, Hypertension. denies: CAD, Malignancy Patient has suicidal ideation: No Patient has homicidal ideation: No - Past Medical History Cardiac Medical History: Reports: Hx Hypercholesterolemia, Hx Hypertension Denies: Hx Atrial Fibrillation, Hx Congestive Heart Failure, Hx Coronary Artery Disease, Hx Heart Attack Pulmonary Medical History: Denies: Hx Asthma, Hx Bronchitis, Hx COPD, Hx Pneumonia Neurological Medical History: Denies: Hx Cerebrovascular Accident, Hx Seizures Endocrine Medical History: Reports: Hx Diabetes Mellitus Type 2. Denies: Hx Diabetes Mellitus Type 1, Hx Hyperthyroidism, Hx Hypothyroidism GI Medical History: Denies: Hx Cirrhosis, Hx Crohn's Disease, Hx Hepatitis, Hx Ulcerative Colitis Musculoskeletal Medical History: Reports Hx Arthritis, Denies Hx Fibromyalgia, Denies Hx Gout Skin Medical History: Denies Hx Eczema, Denies Hx Psoriasis Psychiatric Medical History: Denies: Hx Depression Infectious Medical History: Denies: Hx Hepatitis Past Surgical History: Reports: Hx Abdominal Surgery - Colon resection, Colon polyps removed, Hx Orthopedic Surgery - Neck Fusion X 2, rotator cuff surgery, Other - Segmental colectomy for colon cancer. Denies: Hx Pacemaker - Immunizations Hx Diphtheria, Pertussis, Tetanus Vaccination: Yes - "up to date on others but past on Tetanus" per pt Review of Systems - Review of Systems Constitutional: Chills EENT: No symptoms reported Cardiovascular: No symptoms reported Respiratory: Cough, Short of breath Gastrointestinal: No symptoms reported Genitourinary: No symptoms reported Male Genitourinary: No symptoms reported Musculoskeletal: No symptoms reported Skin: No symptoms reported Hematologic/Lymphatic: No symptoms reported Neurological/Psychological: No symptoms reported Physical Exam - Vital signs Vitals: Pulse Ox 95 07/03/19 18:07 Interpretation: Normal - General General appearance: Appears well, Alert - HEENT Head: Normocephalic, Atraumatic Eyes: Normal Pupils: PERRL - Respiratory Respiratory status: Tachypnea, Other - diminished Chest status: Nontender Breath sounds: Normal Chest palpation: Normal - Cardiovascular Rhythm: Regular Heart sounds: Normal auscultation Murmur: No - Abdominal Inspection: Normal Distension: No distension Bowel sounds: Normal Tenderness: Nontender Organomegaly: No organomegaly - Back Back: Normal, Nontender - Extremities General upper extremity: Normal inspection, Nontender, Normal color, Normal ROM, Normal temperature General lower extremity: Normal inspection, Nontender, Normal color, Normal ROM, Normal temperature, Normal weight bearing. No: Jamari's sign - Neurological Neuro grossly intact: Yes Cognition: Normal Orientation: AAOx4 Clark Coma Scale Eye Opening: Spontaneous [place] Coma Scale Verbal: Oriented [place] Coma Scale Motor: Obeys Commands [place] Coma Scale Total: 15 Speech: Normal Motor strength normal: LUE, RUE, LLE, RLE Sensory: Normal - Psychological Associated symptoms: Normal affect, Normal mood - Skin Skin Temperature: Warm Skin Moisture: Dry Skin Color: Normal Course - Re-evaluation Re-evalutation: 07/03/19 21:18 CXR w/ concern for infectious process abx and cultures started admit requested will order CTA to further delineate abnormality on cxr to help guide treatment given ongoing hypoxia and lack of leukocytosis/lactic acidosis to support infectious precipitant discussed w/ Dr Ladd for admission - Vital Signs Vital signs: Temp Pulse Resp BP Pulse Ox 98.4 F 21 H 117/94 H 99 07/03/19 18:53 07/03/19 18:53 07/03/19 18:53 07/03/19 18:53 - Laboratory Result Diagrams: 07/03/19 19:14 07/03/19 19:14 Laboratory results interpreted by me: 07/03/19 07/03/19 07/03/19 19:14 19:14 19:14 RBC 3.98 L Hgb 12.1 L Hct 36.7 L Lymph % (Auto) 7.5 L Seg Neutrophils % 85.3 H Potassium 3.2 L Est GFR (MDRD) Non-Af 57 L Glucose 114 H Alkaline Phosphatase 37 L NT-Pro-B Natriuret Pep 2410 H Total Protein 6.1 L Albumin 3.4 L Urine Protein 07/03/19 20:18 RBC Hgb Hct Lymph % (Auto) Seg Neutrophils % Potassium Est GFR (MDRD) Non-Af Glucose Alkaline Phosphatase NT-Pro-B Natriuret Pep Total Protein Albumin Urine Protein >=500 H - Diagnostic Test Radiology reviewed: Image reviewed, Reports reviewed - EKG Interpretation by Me Additional EKG results interpreted by me: 07/03/19 21:19 NSR, rate of 93, first degree av block, left atrial abnl, lvh, no ST segment depression to suggest acute ischemia. mil delevation in V3/V4 appears related to LVH Discharge - Discharge Clinical Impression: Hypoxia Pneumonia Qualifiers: Pneumonia type: due to unspecified organism Laterality: right Lung location: middle lobe of lung Qualified Code(s): J18.9 - Pneumonia, unspecified organism CHF (congestive heart failure) Qualifiers: Heart failure type: unspecified Heart failure chronicity: unspecified Qualified Code(s): I50.9 - Heart failure, unspecified Condition: Stable Disposition: ADMITTED INPATIENT Admitting Provider: Julee (Hospitalist) Unit Admitted: Medical Floor Referrals: ALEXANDER VELASQUEZ MD [Primary Care Provider] - Follow up as needed
--- NOTE | 2019-07-03 18:59 | RADIOLOGY REPORT (SQ) ---
EXAM DESCRIPTION: CHEST SINGLE VIEW COMPLETED DATE/TIME: 07/03/2019 6:31 pm REASON FOR STUDY: sob COMPARISON: 06/21/2019 EXAM PARAMETERS: NUMBER OF VIEWS: One view. TECHNIQUE: Single frontal radiographic view of the chest acquired. RADIATION DOSE: NA LIMITATIONS: None. FINDINGS: LUNGS AND PLEURA: Today's examination demonstrates increased appearance of right lung base airspace opacities. The pulmonary exam is otherwise unchanged, again noting trace retrocardiac opac ities. No significant pleural effusion or pneumothorax. MEDIASTINUM AND HILAR STRUCTURES: No masses. Contour normal. HEART AND VASCULAR STRUCTURES: Heart normal in size. Normal vasculature. BONES: No acute findings. HARDWARE: None in the chest. OTHER: No other significant finding. IMPRESSION: In the appropriate clinical setting, increased right lung base airspace opacities is con sistent with a right middle +/- right lower lobe pneumonia. TECHNICAL DOCUMENTATION: JOB ID: [id number] [employer]- All Rights Reserved Reading location - IP/workstation name: [email or web address]
[2019-07-03] MEDS ORDERED: AZITHROMYCIN INJ 500 MG VIAL IV ONE ×2 (19:12→22:00)
[2019-07-03] MEDS ORDERED: PIPERACILLIN/TAZOBACTAM 4.5 GM VIAL IV ONE (19:12)
--- NOTE | 2019-07-03 19:30 | EKG REPORT ---
SEVERITY:- ABNORMAL ECG - SINUS RHYTHM FIRST DEGREE AV BLOCK PROBABLE LEFT ATRIAL ABNORMALITY LEFT VENTRICULAR HYPERTROPHY ANTERIOR ST ELEVATION, PROBABLY DUE TO LVH BORDERLINE PROLONGED QT INTERVAL : Confirmed by: Concha Harrell MD 03-Jul-2019 19:29:56
[2019-07-03 19:33] LABS: ABSOLUTE BASOPHILS # (AUTO) 0.1 10^3/uL (0.0-0.2); ABSOLUTE LYMPHOCYTES (AUTO) 0.6 10^3/uL (0.5-4.7); ABSOLUTE MONOCYTES (AUTO) 0.5 10^3/uL (0.1-1.4); ABSOLUTE NEUT (AUTO) 6.8 10^3/uL (1.7-8.2); BASOPHILS % (AUTO) 0.7 % (0-2); EOSINOPHILS % (AUTO) 0.6 % (0-6); HEMATOCRIT 36.7 % (37.9-51.0); HEMOGLOBIN 12.1 g/dL (13.5-17.0); LYMPHOCYTES % (AUTO) 7.5 % (13-45); MEAN CORPUSCULAR HEMOGLOBIN 30.5 pg (27.0-33.4); MEAN CORPUSCULAR VOLUME 92 fl (80-97); MONOCYTES % (AUTO) 5.9 % (3-13); PLATELET COUNT 329 10^3/uL (150-450); RED BLOOD COUNT 3.98 10^6/uL (4.35-5.55); SEGMENTED NEUTROPHILS % (AUTO) 85.3 % (42-78); TOTAL CELLS COUNTED % (AUTO) 100 %
[2019-07-03 19:54] LABS: ALBUMIN 3.4 g/dL (3.5-5.0); ALKALINE PHOSPHATASE 37 U/L (38-126); ANION GAP 9 (5-19); ASPARTATE AMINO TRANSFERASE 18 U/L (17-59); BILIRUBIN,DIRECT 0.1 mg/dL (0.0-0.4); BILIRUBIN,TOTAL 1.2 mg/dL (0.2-1.3); BLOOD UREA NITROGEN 14 mg/dL (7-20); CALCIUM 9.1 mg/dL (8.4-10.2); CARBON DIOXIDE 25 mmol/L (22-30); CHLORIDE 104 mmol/L (98-107); CREATINE KINASE 120 U/L (55-170); GLUCOSE 114 mg/dL (75-110); POTASSIUM 3.2 mmol/L (3.6-5.0); TOTAL PROTEIN 6.1 g/dL (6.3-8.2)
[2019-07-03 20:05] LABS: CREATINE KINASE MB 1.78 ng/mL (<4.55)
[2019-07-03 20:08] LABS: TROPONIN I 0.071 ng/mL
[2019-07-03 20:43] LABS: APPEARANCE,URINE CLEAR; BILIRUBIN,URINE NEGATIVE (NEGATIVE); COLOR,URINE YELLOW; GLUCOSE, URINE NEGATIVE (NEGATIVE); KETONES,URINE NEGATIVE (NEGATIVE); LEUKOCYTE ESTERASE,URINE NEGATIVE (NEGATIVE); NITRITE,URINE NEGATIVE (NEGATIVE); PROTEIN,URINE >=500 mg/dL (NEGATIVE); URINE SPECIFIC GRAVITY 1.009; UROBILINOGEN,URINE NEGATIVE mg/dL (<2.0)
[2019-07-03 21:30] LABS: ARTERIAL BLOOD BASE EXCESS -1.2 mmol/L; ARTERIAL BLOOD H2CO3 0.97 mmol/L (1.05-1.35); ARTERIAL BLOOD O2 SATURATION 96.8 % (94-98); ARTERIAL BLOOD PCO2 32.2 mmHg (35-45); ARTERIAL BLOOD PH 7.45 (7.35-7.45); ARTERIAL BLOOD PO2 83.5 mmHg (80-100)
[2019-07-03 21:31] LABS: ARTERIAL BLOOD FIO2 4L
[2019-07-03] MEDS ORDERED: ACETAMINOPHEN 325 MG TABLET PO PRN (21:57)
[2019-07-03] MEDS ORDERED: CEFEPIME 2 GM/D5W RTU 2 GM/50 ML RTUPB IV SCH (22:00)
[2019-07-03] MEDS ORDERED: MAGNESIUM HYDROXIDE SUSP 30 ML UDCUP PO PRN (22:07)
[2019-07-03] MEDS ORDERED: HYDRALAZINE HCL INJ/PF 20 MG/1 ML SDV IV PRN (22:07)
[2019-07-03] MEDS ORDERED: MAG HYDROX/AL HYDROX/SIMETH SUSP 30 ML UDCUP PO PRN (22:07)
[2019-07-03] MEDS ORDERED: METOPROLOL TARTRATE PF/INJ 5 MG/5 ML SDV IV PRN (22:07)
[2019-07-03] MEDS ORDERED: NICOTINE 21 MG/24 HR PATCH.TD24 TD PRN (22:08)
--- NOTE | 2019-07-03 22:16 | RADIOLOGY REPORT (SQ) ---
EXAM DESCRIPTION: CT CHEST ANGIOGRAPHY WITHOUT THEN WITH IV CONTRAST COMPLETED DATE/TME: 07/03/2019 20:30 CLINICAL HISTORY: 68 years, Male, shortness of breath COMPARISON: CT report dated 05/27/2019 TECHNIQUE: 610 Images stored on PACS. All CT scanners at this facility use dose modulation, iterative reconstruction, and/or weight based dosing when appropriate to reduce radiation dose to as low as reasonably achievable (ALARA). Axial CTA images with coronal and sagittal MIPS [facility]: Dose Right [facility]: CareDose [facility]: Dose Right [facility]: Teradose 4D [facility]: [employer] LIMITATIONS: None. FINDINGS: Contrast bolus is suboptimal. No discrete filling defect to suggest pulmonary embolus. Evaluation of secondary arterial branches is nondiagnostic. Negative for thoracic aortic aneurysm or dissection. Cardiomegaly. Limited evaluation of upper abdomen shows cholelithiasis. Fatty infiltrative change to the liver. Small bilateral pleural effusions. No pneumothorax. Minor consolidative changes in each lung base IMPRESSION: Suboptimal contrast bolus. No large or central pulmonary embolus. Cardiomegaly. Small bilateral pleural effusions with adjacent consolidation TECHNICAL DOCUMENTATION: Quality ID # 436: Final reports with documentation of one or more dose reduction techniques (e.g., Automated exposure control, adjustment of the mA and/or kV according to patient size, use of iterative reconstruction technique) copyright 2010 [employer]- All Rights Reserved
[2019-07-03] MEDS ORDERED: ISOSORBIDE MONONITRATE 60 MG TAB.ER.24H PO ONE (22:30)
[2019-07-03] MEDS ORDERED: POTASSIUM CHLORIDE 10 MEQ TABLET.ER PO ONE (22:30)
[2019-07-03] MEDS ORDERED: DEXTROSE 50%-WATER 25 GM/50 ML DISP.SYRIN IV PRN ×2 (22:58)
[2019-07-03] MEDS ORDERED: DEXTROSE 40% GEL 15 GM TUBE PO PRN ×2 (22:58)
[2019-07-03] MEDS ORDERED: GLUCAGON,HUMAN RECOMB 1 MG INJ IM PRN (22:58)
[2019-07-03] MEDS: GUAIFENESIN 600 MG TABLET.SA PO SCH (23:21)
[2019-07-03] MEDS: HEPARIN SOD (PORCINE) 5,000 UNIT/ML 1 ML VIAL SUBCUT SCH (23:21)
[2019-07-03] MEDS ORDERED: INSULIN REG, HUMAN 100 UNIT/ML 3 ML VIAL (PYX) SUBCUT ONE (23:30)
--- NOTE | 2019-07-03 23:44 | PDOC H&P ---
History of Present Illness Admission Date/PCP: 07/03/19 21:27 ALEXANDER VELASQUEZ MD Patient complains of: Dyspnea History of Present Illness: LUCIE ESPAÑA is a 68 year old male who presented to the emergency room with acute dyspnea. The patient admits developing shortness of breath, worsened by exertion/activity, gradually worsening over the course of the day, with his dyspnea becoming severe prior to coming to the emergency room. His dyspnea has been accompanied by a subjective fever with chills and a cough productive of small amounts of mucus. He denies other associated or accompanying signs and symptoms. He denies prior similar episodes. He admits a hospitalization earlier this month for congestive heart failure. He has not identified any additional aggravating or ameliorating factors for his dyspnea. He called EMS and was treated with CPAP by EMS during his transport. In the emergency room he was found to have a right lung pneumonia and was also noted to require supplemental oxygen to maintain an adequate O2 saturation. He was subsequently admitted to hospital for further evaluation and treatment. Past Medical History Cardiac Medical History: Reports: Hyperlipidema, Hypertension Denies: Atrial Fibrillation, Congestive Heart Failure, Coronary Artery Disease, Myocardial Infarction Pulmonary Medical History: Reports: Respiratory Failure Denies: Asthma, Bronchitis, Chronic Obstructive Pulmonary Disease (COPD), Pneumonia EENT Medical History: Denies: Cataracts, Ears - Hearing aids Neurological Medical History: Denies: Hemorrhagic CVA, Ischemic CVA, Seizures Endocrine Medical History: Reports: Diabetes Mellitus Type 2 Denies: Diabetes Mellitus Type 1, Hyperthyroidism, Hypothyroidism Renal/ Medical History: Reports: Other - Benign prostatic hyperplasia Denies: Chronic Kidney Disease, Nephrolithiasis Malignancy Medical History: Reports: None GI Medical History: Denies: Cirrhosis, Crohn's Disease, Hepatitis, Ulcerative Colitis Musculoskeltal Medical History: Reports: Arthritis Denies: Fibromyalgia, Gout Skin Medical History: Denies: Eczema, Psoriasis Psychiatric Medical History: Reports: Tobacco Dependency Denies: Alcohol Dependency, Depression, Substance Abuse Traumatic Medical History: Reports: None Hematology: Denies: Anemia, Bleeding Tendencies Infectious Medical History: Reports: None Past Surgical History Past Surgical History: Reports: Orthopedic Surgery - Neck Fusion X 2, rotator cuff surgery, Other - Segmental colectomy for colon cancer Social History Information Source: Patient Lives with: Spouse/Significant other Smoking Status: Current Every Day Smoker Electronic Cigarette use?: No Frequency of Alcohol Use: None Hx Recreational Drug Use: No Drugs: None Hx Prescription Drug Abuse: No - Advance Directive Resuscitation Status: Full Code Surrogate healthcare decision maker:: Ingrid España Family History Family History: DM, Hypertension. denies: CAD, Malignancy Parental Family History Reviewed: Yes Children Family History Reviewed: No Sibling(s) Family History Reviewed.: Yes Medication/Allergy Home Medications: Metformin HCl [Glucophage 500 mg Tablet] 500 mg PO BID 10/03/11 Omeprazole [Prilosec 20 mg Capsule] 20 mg PO DAILY 10/03/11 Terazosin HCl 20 mg PO DAILY 10/03/11 Lovastatin [Altoprev] 40 mg PO QHS 06/22/19 Meloxicam [Mobic] 15 mg PO DAILYP PRN 06/22/19 Acetaminophen [Tylenol 325 mg Tablet] 650 mg PO Q4HP PRN tablet 06/25/19 Furosemide [Lasix 20 mg Tablet] 20 mg PO QAM #30 tablet 06/25/19 Hydralazine HCl [Apresoline 25 mg Tablet] 25 mg PO Q6 #120 tablet 06/25/19 Isosorbide Dinitrate [Isordil Titradose 20 mg Tablet] 20 mg PO Q6 #120 tablet 06/25/19 Metoprolol Succinate [Toprol Xl 25 mg Tab.sr] 25 mg PO Q12 #60 tab.sr.24h 06/25/19 Allergies/Adverse Reactions: atorvastatin [From Lipitor] Allergy (Severe, Verified 06/21/19 15:50) Swelling of Throat lisinopril Allergy (Severe, Verified 06/21/19 15:50) Swelling of Throat latex [Latex] Allergy (Intermediate, Verified 06/21/19 15:50) rash Review of Systems Constitutional: PRESENT: as per HPI, chills, fever(s) - Subjective Eyes: ABSENT: visual disturbances, other - Eye pain Ears: ABSENT: hearing changes, other - Ear pain Nose, Mouth, and Throat: ABSENT: mouth pain, sore throat Cardiovascular: PRESENT: as per HPI, dyspnea on exertion. ABSENT: chest pain, edema, orthropnea, palpitations Respiratory: PRESENT: as per HPI, cough, dyspnea, sputum. ABSENT: hemoptysis Gastrointestinal: ABSENT: abdominal pain, constipation, diarrhea, nausea, vomiting Genitourinary: ABSENT: dysuria, hematuria Musculoskeletal: ABSENT: back pain, joint swelling, muscle weakness Integumentary: ABSENT: pruritus, rash Neurological: ABSENT: confusion, convulsions, focal weakness, memory loss, syncope Psychiatric: ABSENT: anxiety, depression Endocrine: ABSENT: cold intolerance, heat intolerance Hematologic/Lymphatic: ABSENT: easy bleeding, easy bruising Allergic/Immunologic: ABSENT: seasonal rhinorrhea Physical Exam Vital Signs: Temp Pulse Resp BP Pulse Ox 98.4 F 19 115/83 99 07/03/19 20:01 07/03/19 21:00 07/03/19 20:01 07/03/19 21:00 Intake & Output 07/01/19 07/02/19 07/03/19 23:59 23:59 23:59 Weight 91.6 kg General appearance: PRESENT: no acute distress, cooperative, other - On nasal cannula oxygen at the time of exam Head exam: PRESENT: atraumatic, normocephalic Eye exam: PRESENT: conjunctiva pink. ABSENT: conjunctival injection, scleral icterus Ear exam: PRESENT: normal external ear exam. ABSENT: bleeding, drainage Mouth exam: PRESENT: dry mucosa, neck supple Neck exam: ABSENT: thyromegaly, tracheal deviation Respiratory exam: PRESENT: rales - Coarse rales at the right base, rhonchi - Scattered and intermittent central lung field rhonchi, symmetrical Cardiovascular exam: PRESENT: RRR. ABSENT: clicks, gallop, rubs Pulses: PRESENT: normal radial pulses. ABSENT: normal dorsalis pedis pul Vascular exam: PRESENT: normal capillary refill. ABSENT: pallor GI/Abdominal exam: PRESENT: normal bowel sounds, soft. ABSENT: tenderness Rectal exam: PRESENT: deferred Extremities exam: ABSENT: joint swelling, pedal edema Musculoskeletal exam: ABSENT: deformity, dislocation Neurological exam: PRESENT: alert, oriented to person, oriented to place, oriented to time, oriented to situation, CN II-XII grossly intact. ABSENT: motor sensory deficit Psychiatric exam: PRESENT: appropriate affect, normal mood Skin exam: PRESENT: dry, intact, warm. ABSENT: jaundice, rash, urticaria Results Laboratory Results: 07/03/19 19:14 07/03/19 19:14 07/03/19 07/03/19 07/03/19 19:14 19:14 19:35 WBC 8.0 RBC 3.98 L Hgb 12.1 L Hct 36.7 L MCV 92 MCH 30.5 MCHC 33.0 RDW 14.0 Plt Count 329 Seg Neutrophils % 85.3 H Carbonic Acid HCO3/H2CO3 Ratio ABG pH ABG pCO2 ABG pO2 ABG HCO3 ABG O2 Saturation ABG Base Excess FiO2 Sodium 137.9 Potassium 3.2 L Chloride 104 Carbon Dioxide 25 Anion Gap 9 BUN 14 Creatinine 1.25 Est GFR ( Amer) > 60 Glucose 114 H Lactic Acid 1.0 Calcium 9.1 Total Bilirubin 1.2 AST 18 Alkaline Phosphatase 37 L Total Protein 6.1 L Albumin 3.4 L Urine Color Urine Appearance Urine pH Ur Specific [place] Urine Protein Urine Glucose (UA) Urine Ketones Urine Blood Urine Nitrite Ur Leukocyte Esterase Urine WBC (Auto) Urine RBC (Auto) 07/03/19 07/03/19 20:18 21:04 WBC RBC Hgb Hct MCV MCH MCHC RDW Plt Count Seg Neutrophils % Carbonic Acid 0.97 L HCO3/H2CO3 Ratio 22:1 ABG pH 7.45 ABG pCO2 32.2 L ABG pO2 83.5 ABG HCO3 22.0 ABG O2 Saturation 96.8 ABG Base Excess -1.2 FiO2 4L Sodium Potassium Chloride Carbon Dioxide Anion Gap BUN Creatinine Est GFR ( Amer) Glucose Lactic Acid Calcium Total Bilirubin AST Alkaline Phosphatase Total Protein Albumin Urine Color YELLOW Urine Appearance CLEAR Urine pH 7.0 Ur Specific [place] 1.009 Urine Protein >=500 H Urine Glucose (UA) NEGATIVE Urine Ketones NEGATIVE Urine Blood NEGATIVE Urine Nitrite NEGATIVE Ur Leukocyte Esterase NEGATIVE Urine WBC (Auto) 2 Urine RBC (Auto) 1 07/03/19 07/03/19 19:14 19:14 Creatine Kinase 120 CK-MB (CK-2) 1.78 Troponin I 0.071 NT-Pro-B Natriuret Pep 2410 H Impressions: Chest X-Ray 07/03/19 18:08 IMPRESSION: In the appropriate clinical setting, increased right lung base air space opacities is consistent with a right middle +/- right lower lobe pneumonia. Assessment and Plan - Diagnosis (1) HCAP (healthcare-associated pneumonia) Is this a current diagnosis for this admission?: Yes (2) Acute respiratory failure with hypoxia Is this a current diagnosis for this admission?: Yes (3) Chronic combined systolic and diastolic congestive heart failure Is this a current diagnosis for this admission?: Yes (4) Diabetes mellitus type 2 in nonobese Is this a current diagnosis for this admission?: Yes (5) Essential hypertension Is this a current diagnosis for this admission?: Yes (6) Hyperlipidemia associated with type 2 diabetes mellitus Is this a current diagnosis for this admission?: Yes (7) Benign prostatic hyperplasia Qualifiers: Lower urinary tract symptom presence: unspecified whether lower urinary tract symptoms present Qualified Code(s): N40.0 - Benign prostatic hyperplasia without lower urinary tract symptoms Is this a current diagnosis for this admission?: Yes (8) Primary osteoarthritis involving multiple joints Is this a current diagnosis for this admission?: Yes (9) Tobacco use disorder, moderate, dependence Is this a current diagnosis for this admission?: Yes - Plan Summary Summary: Patient was admitted to the medical floor for routine supportive and symptomatic cares. He will be treated with cefepime as a possible healthcare associated pneumonia due to his recent hospitalization, blood cultures and a sputum culture are pending. He will receive supplemental oxygen via nasal cannula and or noninvasive airway pressure devices as required in order to maintain adequate oxygen saturation. He will receive an aggressive pulmonary toilet utilizing Xopenex, Atrovent, Pulmicort and Mucomyst delivered via nebulizer. He will be continued on his usual medications for his chronic medical problems and will be provided a cardiac and diabetic restricted diet. Before meals and at bedtime Accu-Cheks will be performed with sliding scale insulin for hyperglycemia and a hypoglycemic protocol in place. He will have daily CBCs, metabolic profiles and magnesium levels performed as appropriate. Smoking cessation is advised and counseled briefly at the bedside. A nicotine replacement patch is available for the patient's use, if desired. - Time Time Spent with patient: 15-24 minutes Smoking Cessation Education: 3 to 10 minutes Medications reviewed and adjusted accordingly: Yes Anticipated discharge: Home with Homehealth - Inpatient Certification Based on my medical assessment, after consideration of the patient's comorbidities, presenting symptoms, or acuity I expect that the services needed warrant INPATIENT care.: Yes I certify that my determination is in accordance with my understanding of Medicare's requirements for reasonable and necessary INPATIENT services [42 CFR 412.3e].: Yes Medical Necessity: Significant Comorbidiites Make Outpatient Treatment Too Risky, Need Close Monitoring Due to Risk of Patient Decompensation, Need for Nebulizer Therapy and Monitoring of Response, Need for IV Antibiotics, Risk of Complication if Not Cared For in Hospital
[2019-07-03] MEDS ORDERED: CEFEPIME 2 GM/D5W RTU 2 GM/50 ML RTUPB IV ONE (23:53)
[2019-07-04] MEDS: GUAIFENESIN SYRP 200 MG/10 ML UDC PO PRN ×2 (00:05→20:09)
[2019-07-04] MEDS: IPRATROPIUM BROMIDE 0.02% NEB 0.5 MG/2.5 ML AMPUL NEB SCH ×4 (00:14→23:58)
[2019-07-04] MEDS: LEVALBUTEROL HCL NEB 1.25 MG/3 ML AMPUL NEB SCH ×4 (00:14→23:58)
[2019-07-04] MEDS: LEVALBUTEROL HCL NEB 0.63 MG/3 ML AMPUL NEB PRN ×2 (05:13→20:12)
[2019-07-04] MEDS: PANTOPRAZOLE SODIUM 40 MG TABLET.DR PO SCH (05:40)
[2019-07-04 06:17] LABS: HEMATOCRIT 36.7 % (37.9-51.0); MEAN CORPUSCULAR HEMOGLOBIN 30.4 pg (27.0-33.4); MEAN CORPUSCULAR HGB CONC 32.8 g/dL (32.0-36.0); MEAN CORPUSCULAR VOLUME 93 fl (80-97); PLATELET COUNT 295 10^3/uL (150-450); RED BLOOD COUNT 3.96 10^6/uL (4.35-5.55); RED CELL DISTRIBUTION WIDTH 13.8 % (11.5-14.0); WHITE BLOOD COUNT 6.5 10^3/uL (4.0-10.5)
[2019-07-04] MEDS: HEPARIN SOD (PORCINE) 5,000 UNIT/ML 1 ML VIAL SUBCUT SCH ×3 (06:39→21:09)
[2019-07-04 06:43] LABS: ALBUMIN 3.4 g/dL (3.5-5.0); ALKALINE PHOSPHATASE 35 U/L (38-126); ANION GAP 12 (5-19); ASPARTATE AMINO TRANSFERASE 19 U/L (17-59); BILIRUBIN,DIRECT 0.2 mg/dL (0.0-0.4); BILIRUBIN,TOTAL 1.7 mg/dL (0.2-1.3); BLOOD UREA NITROGEN 12 mg/dL (7-20); CALCIUM 9.1 mg/dL (8.4-10.2); CARBON DIOXIDE 23 mmol/L (22-30); CHLORIDE 104 mmol/L (98-107); GLUCOSE 118 mg/dL (75-110); POTASSIUM 3.3 mmol/L (3.6-5.0)
[2019-07-04] MEDS: INSULIN REG, HUMAN 100 UNIT/ML 3 ML VIAL (PYX) SUBCUT SCH ×4 (07:54→22:39)
[2019-07-04] MEDS: ACETYLCYSTEINE 20% SOLN 800 MG/4 ML VIAL.NEB NEB SCH ×2 (08:12→20:13)
[2019-07-04] MEDS: BUDESONIDE NEB 0.5 MG/2 ML AMPUL NEB SCH ×2 (08:13→20:12)
[2019-07-04] MEDS: METOPROLOL SUCCINATE 50 MG TAB.SR.24H PO SCH ×2 (10:13→21:09)
[2019-07-04] MEDS: HYDRALAZINE HCL 50 MG TABLET PO SCH ×2 (10:13→21:08)
[2019-07-04] MEDS: DOCUSATE SODIUM 100 MG CAPSULE PO SCH ×2 (10:14→17:09)
[2019-07-04] MEDS: SPIRONOLACTONE 25 MG TABLET PO SCH (10:14)
[2019-07-04] MEDS: ISOSORBIDE MONONITRATE 60 MG TAB.ER.24H PO SCH (10:14)
[2019-07-04] MEDS: GUAIFENESIN 600 MG TABLET.SA PO SCH ×2 (10:14→21:09)
[2019-07-04] MEDS: POTASSIUM CHLORIDE 10 MEQ TABLET.ER PO SCH (10:14)
[2019-07-04] MEDS: TORSEMIDE 20 MG TABLET PO SCH (10:14)
[2019-07-04] MEDS: CEFEPIME HCL 2 GM in DEXTROSE 5%-WATER 50 ML IV SCH ×2 (10:16→21:09)
--- NOTE | 2019-07-04 12:25 | PDOC PROGRESS REPORT ---
Subjective Progress Note for:: 07/04/19 Subjective:: LUCIE ANDREWS is a 68 year old male past medical history of CHF, HAILEY, diabetes, hypertension, hyperlipidemia, back abuse who was recently admitted here at [facility] for HAILEY, acute CHF, acute respiratory failure, and elevated troponins. Cardiology was consulted and plan was for patient to follow-up with [facility] for possible stress test as outpatient. Presented to ED complaining of acute shortness of breath with exertion and activity, accompanied by subjective fever, chills and productive cough. 07/04/2019. No acute events overnight. Patient still complaining of productive cough, mild respiratory distress, denies any chest pain, nausea, vomiting, diarrhea, constipation or any urinary symptoms. Reason For Visit: RIGHT LUNG HCA PNEUMONIA, ACUTE RESPIRATORY Physical Exam Vital Signs: Temp Pulse Resp BP Pulse Ox 97.6 F 83 19 114/88 H 98 07/03/19 23:06 07/04/19 08:13 07/04/19 08:13 07/03/19 23:06 07/04/19 11:44 Pulse Oximeter Continuous Start: 07/03/19 21:58 Freq: RTQ4 Status: Active Protocol: Document 07/04/19 11:44 HCR (Rec: 07/04/19 11:44 HCR [id number]) Pulse Oximetry Assessment Oxygen Saturation (92-100) 98 Oxygen Flow Rate (L/min) 3 Oxygen Delivery Method Nasal Cannula Equipment Usage Equipment in Use Continuous SpO2 Machine # 5 Intake & Output 07/03/19 07/04/19 07/05/19 06:59 06:59 06:59 Intake Total 850 50 Output Total 425 Balance 425 50 Weight 98.4 kg General appearance: PRESENT: mild distress, obese Head exam: PRESENT: atraumatic, normocephalic Respiratory exam: PRESENT: decreased breath sounds, prolonged expiratory phas. ABSENT: rales, rhonchi, wheezes Cardiovascular exam: PRESENT: RRR. ABSENT: diastolic murmur, rubs, systolic murmur GI/Abdominal exam: PRESENT: normal bowel sounds, soft. ABSENT: distended, guarding, mass, organolmegaly, rebound, tenderness Neurological exam: PRESENT: alert, awake, oriented to person, oriented to place, oriented to time, oriented to situation, CN II-XII grossly intact. ABSENT: margie r sensory deficit Results Laboratory Results: 07/04/19 05:55 07/04/19 05:55 07/03/19 07/03/19 07/03/19 19:14 19:14 19:35 WBC 8.0 RBC 3.98 L Hgb 12.1 L Hct 36.7 L MCV 92 MCH 30.5 MCHC 33.0 RDW 14.0 Plt Count 329 Seg Neutrophils % 85.3 H Carbonic Acid HCO3/H2CO3 Ratio ABG pH ABG pCO2 ABG pO2 ABG HCO3 ABG O2 Saturation ABG Base Excess FiO2 Sodium 137.9 Potassium 3.2 L Chloride 104 Carbon Dioxide 25 Anion Gap 9 BUN 14 Creatinine 1.25 Est GFR ( Amer) > 60 Glucose 114 H Lactic Acid 1.0 Calcium 9.1 Total Bilirubin 1.2 AST 18 Alkaline Phosphatase 37 L Total Protein 6.1 L Albumin 3.4 L Urine Color Urine Appearance Urine pH Ur Specific [place] Urine Protein Urine Glucose (UA) Urine Ketones Urine Blood Urine Nitrite Ur Leukocyte Esterase Urine WBC (Auto) Urine RBC (Auto) 07/03/19 07/03/19 07/04/19 20:18 21:04 05:55 WBC 6.5 RBC 3.96 L Hgb 12.0 L Hct 36.7 L MCV 93 MCH 30.4 MCHC 32.8 RDW 13.8 Plt Count 295 Seg Neutrophils % Carbonic Acid 0.97 L HCO3/H2CO3 Ratio 22:1 ABG pH 7.45 ABG pCO2 32.2 L ABG pO2 83.5 ABG HCO3 22.0 ABG O2 Saturation 96.8 ABG Base Excess -1.2 FiO2 4L Sodium Potassium Chloride Carbon Dioxide Anion Gap BUN Creatinine Est GFR ( Amer) Glucose Lactic Acid Calcium Total Bilirubin AST Alkaline Phosphatase Total Protein Albumin Urine Color YELLOW Urine Appearance CLEAR Urine pH 7.0 Ur Specific [place] 1.009 Urine Protein >=500 H Urine Glucose (UA) NEGATIVE Urine Ketones NEGATIVE Urine Blood NEGATIVE Urine Nitrite NEGATIVE Ur Leukocyte Esterase NEGATIVE Urine WBC (Auto) 2 Urine RBC (Auto) 1 07/04/19 05:55 WBC RBC Hgb Hct MCV MCH MCHC RDW Plt Count Seg Neutrophils % Carbonic Acid HCO3/H2CO3 Ratio ABG pH ABG pCO2 ABG pO2 ABG HCO3 ABG O2 Saturation ABG Base Excess FiO2 Sodium 139.2 Potassium 3.3 L Chloride 104 Carbon Dioxide 23 Anion Gap 12 BUN 12 Creatinine 1.33 H Est GFR ( Amer) > 60 Glucose 118 H Lactic Acid Calcium 9.1 Total Bilirubin 1.7 H AST 19 Alkaline Phosphatase 35 L Total Protein 6.0 L Albumin 3.4 L Urine Color Urine Appearance Urine pH Ur Specific [place] Urine Protein Urine Glucose (UA) Urine Ketones Urine Blood Urine Nitrite Ur Leukocyte Esterase Urine WBC (Auto) Urine RBC (Auto) 07/03/19 07/03/19 19:14 19:14 Creatine Kinase 120 CK-MB (CK-2) 1.78 Troponin I 0.071 NT-Pro-B Natriuret Pep 2410 H Impressions: Chest X-Ray 07/03/19 18:08 IMPRESSION: In the appropriate clinical setting, increased right lung base airspace opacities is consistent with a right middle +/- right lower lobe pneumonia. Chest/Abdomen CTA 07/03/19 20:30 IMPRESSION: Suboptimal contrast bolus. No large or central pulmonary embolus. Cardiomegaly. Small bilateral pleural effusions with adjacent consolidation TECHNICAL DOCUMENTATION: Quality ID # [id number]: Final reports with documentation of one or more dose reduction techniques (e.g., Automated exposure control, adjustment of the mA and/or kV according to patient size, use of iterative reconstruction technique) copyright 2010 [employer]- All Rights Reserved Assessment and Plan - Diagnosis (1) HCAP (healthcare-associated pneumonia) Is this a current diagnosis for this admission?: Yes Plan: Likely due to recent hospitalization for acute CHF, HAILEY, acute respiratory failure. Day 2 IV antibiotics. Day 2 IV cefepime. Day 2 IV levofloxacin. Received 1 dose of Zosyn in ED. Received 1 dose of azithromycin in ED. Cultures no growth so far. Continue broad-spectrum empiric IV antibiotics. Follow culture. (2) CHF (congestive heart failure) Qualifiers: Heart failure type: systolic Heart failure chronicity: unspecified Qualified Code(s): I50.20 - Unspecified systolic (congestive) heart failure Is this a current diagnosis for this admission?: Yes Plan: Acute systolic heart failure. proBNP 2410. Denies any history of CAD. History of hypertension. Likely exacerbated due to underlying pneumonia. 06/22/2019. 2D echo LVEF 40%. Left ventricular hypertrophy. Stage I/IV mild diastolic dysfunction. Cardiac diet, fluid restriction, strict in and out, IV diuretics, BARB, beta- blockers, PRN morphine. (3) Acute respiratory failure with hypoxia Is this a current diagnosis for this admission?: Yes Plan: Most likely due to #1. Plan as per #1. (4) Essential hypertension Is this a current diagnosis for this admission?: Yes Plan: Normotensive. Euvolemic. Home meds are hydralazine, Imdur, Lasix, metoprolol and losartan. Restart home meds. Monitor vitals. Adjust meds as needed. Outpatient PCP follow-up. (5) Diabetes mellitus type 2 in nonobese Is this a current diagnosis for this admission?: Yes Plan: Controlled. Hemoglobin A1c WNL. Takes metformin at home. Diabetic diet. Sliding scale insulin. Hypoglycemia protocol. Accu-Chek. Restart home meds upon discharge. Outpatient PCP follow-up. (6) Tobacco use disorder, moderate, dependence Is this a current diagnosis for this admission?: Yes Plan: Counseled on quitting. NicoDerm patch will be provided. (7) Elevated troponin Is this a current diagnosis for this admission?: Yes Plan: Denies any chest pain. High risk for CAD. This is likely due to acute CHF exacerbation complicated by H CAP. In previous hospitalization Dr Murry from cardiology was consulted. Plan was to have patient do stress test as outpatient. Continue antiplatelets, BARB, beta-blockers. Allergic to statins. Lipid panel from previous admission WNL. Outpatient follow-up with Dr. Murry
[2019-07-04] MEDS: ASPIRIN 81 MG TABLET, CHEWABLE PO SCH (13:12)
[2019-07-04] MEDS: LEVOFLOXACIN 750 MG/D5W RTU 750 MG/150 ML RTUPB IV SCH (21:09)
[2019-07-04] MEDS: DOXAZOSIN MESYLATE 1 MG TABLET PO SCH (21:09)
[2019-07-05] MEDS: LEVALBUTEROL HCL NEB 0.63 MG/3 ML AMPUL NEB PRN ×2 (02:16→04:35)
[2019-07-05] MEDS: HEPARIN SOD (PORCINE) 5,000 UNIT/ML 1 ML VIAL SUBCUT SCH (05:16)
[2019-07-05] MEDS: PANTOPRAZOLE SODIUM 40 MG TABLET.DR PO SCH (05:17)
[2019-07-05] MEDS: INSULIN REG, HUMAN 100 UNIT/ML 3 ML VIAL (PYX) SUBCUT SCH ×4 (07:19→22:14)
[2019-07-05] MEDS: BUDESONIDE NEB 0.5 MG/2 ML AMPUL NEB SCH ×2 (07:56→20:26)
[2019-07-05] MEDS: IPRATROPIUM BROMIDE 0.02% NEB 0.5 MG/2.5 ML AMPUL NEB SCH ×2 (07:56→16:22)
[2019-07-05] MEDS: LEVALBUTEROL HCL NEB 1.25 MG/3 ML AMPUL NEB SCH ×2 (07:56→16:22)
[2019-07-05] MEDS: ACETYLCYSTEINE 20% SOLN 800 MG/4 ML VIAL.NEB NEB SCH ×2 (07:56→20:26)
[2019-07-05] MEDS: CEFEPIME HCL 2 GM in DEXTROSE 5%-WATER 50 ML IV SCH ×2 (09:22→22:30)
[2019-07-05] MEDS: TORSEMIDE 20 MG TABLET PO SCH (09:28)
[2019-07-05] MEDS: ASPIRIN 81 MG TABLET, CHEWABLE PO SCH (09:29)
[2019-07-05] MEDS: METOPROLOL SUCCINATE 50 MG TAB.SR.24H PO SCH ×2 (09:29→21:48)
[2019-07-05] MEDS: DOCUSATE SODIUM 100 MG CAPSULE PO SCH ×2 (09:29→17:25)
[2019-07-05] MEDS: POTASSIUM CHLORIDE 10 MEQ TABLET.ER PO SCH (09:29)
[2019-07-05] MEDS: GUAIFENESIN 600 MG TABLET.SA PO SCH ×2 (09:29→21:47)
[2019-07-05] MEDS: SPIRONOLACTONE 25 MG TABLET PO SCH (09:29)
[2019-07-05] MEDS: ISOSORBIDE MONONITRATE 60 MG TAB.ER.24H PO SCH (09:29)
[2019-07-05] MEDS: HYDRALAZINE HCL 50 MG TABLET PO SCH ×2 (09:29→21:47)
[2019-07-05] MEDS: ENOXAPARIN SODIUM INJ 100 MG/1 ML DISP.SYRIN SUBCUT SCH ×2 (09:31→21:49)
--- NOTE | 2019-07-05 19:23 | PDOC PROGRESS REPORT ---
Subjective Progress Note for:: 07/05/19 Subjective:: LUCIE ANDREWS is a 68 year old male past medical history of CHF, HAILEY, diabetes, hypertension, hyperlipidemia, back abuse who was recently admitted here at [facility] for HAILEY, acute CHF, acute respiratory failure, and elevated troponins. Cardiology was consulted and plan was for patient to follow-up with [facility] for possible stress test as outpatient. Presented to ED complaining of acute shortness of breath with exertion and activity, accompanied by subjective fever, chills and productive cough. 07/04/2019. No acute events overnight. Patient still complaining of productive cough, mild respiratory distress, denies any chest pain, nausea, vomiting, diarrhea, constipation or any urinary symptoms. 07/05/2018. Patient was noted to be very stressed, diaphoretic and requiring more oxygen and was transferred to [facility]. Reason For Visit: RIGHT LUNG HCA PNEUMONIA, ACUTE RESPIRATORY Physical Exam Vital Signs: Temp Pulse Resp BP Pulse Ox 97.5 F 77 21 H 113/84 96 07/05/19 15:44 07/05/19 16:25 07/05/19 16:25 07/05/19 15:44 07/05/19 16:25 Pulse Oximeter Continuous Start: 07/03/19 21:58 Freq: RTQ4 Status: Active Protocol: Document 07/05/19 16:[address] [facility] (Rec: 07/05/19 16:[address] [facility] [id number]) Pulse Oximetry Assessment Oxygen Saturation (92-100) 96 Oxygen Delivery Method Bi-pap Fraction of Inspired Oxygen (FIO2) 30 Equipment Usage Equipment in Use Continuous SpO2 Machine # 5 Intake & Output 07/04/19 07/05/19 07/06/19 06:59 06:59 06:59 Intake Total 850 1330 290 Output Total 913 9993 171 Balance 889 -3112 -418 Weight 98.4 kg 97.4 kg General appearance: PRESENT: severe distress Head exam: PRESENT: atraumatic, normocephalic Respiratory exam: PRESENT: crackles, decreased breath sounds, prolonged expiratory phas, tachypnea. ABSENT: rales, rhonchi, wheezes GI/Abdominal exam: PRESENT: normal bowel sounds, soft. ABSENT: distended, guarding, mass, organolmegaly, rebound, tenderness Rectal exam: PRESENT: deferred Neurological exam: PRESENT: alert, awake, oriented to person, oriented to place, oriented to time, oriented to situation, CN II-XII grossly intact. ABSENT: m otor sensory deficit Results Laboratory Results: 07/04/19 05:55 07/04/19 05:55 07/04/19 00:30 Sputum Gram Stain - Final 07/04/19 00:30 Sputum Sputum Culture - Final 07/03/19 07/03/19 07/04/19 19:14 19:14 12:37 Creatine Kinase 120 CK-MB (CK-2) 1.78 Troponin I 0.071 0.079 NT-Pro-B Natriuret Pep 2410 H 07/04/19 07/05/19 07/05/19 18:30 01:50 08:10 Creatine Kinase CK-MB (CK-2) Troponin I 0.077 0.075 0.074 NT-Pro-B Natriuret Pep 07/05/19 15:30 Creatine Kinase CK-MB (CK-2) Troponin I 0.079 NT-Pro-B Natriuret Pep Impressions: Chest X-Ray 07/03/19 18:08 IMPRESSION: In the appropriate clinical setting, increased right lung base airspace opacities is consistent with a right middle +/- right lower lobe pneumonia. Chest/Abdomen CTA 07/03/19 20:30 IMPRESSION: Suboptimal contrast bolus. No large or central pulmonary embolus. Cardiomegaly. Small bilateral pleural effusions with adjacent consolidation TECHNICAL DOCUMENTATION: Quality ID # [id number]: Final reports with documentation of one or more dose reduction techniques (e.g., Automated exposure control, adjustment of the mA and/or kV according to patient size, use of iterative reconstruction technique) copyright 2011 [employer]- All Rights Reserved Assessment and Plan - Diagnosis (1) Acute respiratory failure with hypoxia Is this a current diagnosis for this admission?: Yes Plan: Significant worsening since yesterday. Patient on BiPAP with FiO2 of 30% on 2 L. Noted to be in severe respiratory distress with diaphoresis. Combination of healthcare/pneumonia and CHF exacerbation. [place] [facility] [place] continue BiPAP, IV steroids, empiric IV antibiotics, flutter valve, incentive spirometry, ICS, LABA, LABA. (2) HCAP (healthcare-associated pneumonia) Is this a current diagnosis for this admission?: Yes Plan: Likely due to recent hospitalization for acute CHF, HAILEY, acute respiratory failure. Day 3 IV antibiotics. Day 3 IV cefepime. Day 3 IV levofloxacin. Received 1 dose of Zosyn in ED. Received 1 dose of azithromycin in ED. Cultures no growth so far. Continue broad-spectrum empiric IV antibiotics. Follow culture. (3) CHF (congestive heart failure) Qualifiers: Heart failure type: systolic Heart failure chronicity: unspecified Qualified Code(s): I50.20 - Unspecified systolic (congestive) heart failure Is this a current diagnosis for this admission?: Yes Plan: Acute systolic heart failure. proBNP 2410. Denies any history of CAD. History of hypertension. Likely exacerbated due to underlying pneumonia. 06/22/2019. 2D echo LVEF 40%. Left ventricular hypertrophy. Stage I/IV mild diastolic dysfunction. Cardiac diet, fluid restriction, strict in and out, IV diuretics, BARB, beta-bloc kers, PRN morphine. Patient has been having persistent elevated troponins. Ranging from 0.074-0.07 9. With nonspecific T wave abnormalities. Unchanged from previous admission. I have consulted Dr. Harrell discussed this case Dr. Harrell recommends medical management this point with plan to have a outpatient stress test after discharge. (4) Essential hypertension Is this a current diagnosis for this admission?: Yes Plan: Normotensive. Euvolemic. Home meds are hydralazine, Imdur, Lasix, metoprolol and losartan. Restart home meds. Monitor vitals. Adjust meds as needed. Outpatient PCP follow-up. (5) Diabetes mellitus type 2 in nonobese Is this a current diagnosis for this admission?: Yes Plan: Controlled. Hemoglobin A1c WNL. Takes metformin at home. Diabetic diet. Sliding scale insulin. Hypoglycemia protocol. Accu-Chek. Restart home meds upon discharge. Outpatient PCP follow-up. (6) Tobacco use disorder, moderate, dependence Is this a current diagnosis for this admission?: Yes Plan: Counseled on quitting. NicoDerm patch will be provided. (7) Elevated troponin Is this a current diagnosis for this admission?: Yes Plan: Denies any chest pain. High risk for CAD. Ranging from 0.074-0.079. With nonspecific T wave abnormalities. Unchanged from previous admission. This is likely due to acute CHF exacerbation complicated by HCAP. In previous hospitalization Dr Murry from cardiology was consulted. Plan was to have patient do stress test as outpatient. Continue antiplatelets, BARB, beta-blockers. Allergic to statins. Lipid panel from previous admission WNL. I have consulted Dr. Harrell discussed this case Dr. Harrell recommends medical management this point with plan to have a outpatient stress test after discharge.
--- NOTE | 2019-07-05 19:36 | EKG REPORT ---
SEVERITY:- ABNORMAL ECG - SINUS RHYTHM PROBABLE LEFT ATRIAL ABNORMALITY NONSPECIFIC T ABNORMALITIES, LATERAL LEADS BORDERLINE PROLONGED QT INTERVAL : Confirmed by: Concha Harrell MD 05-Jul-2019 19:35:02
[2019-07-05] MEDS ORDERED: CEFEPIME 2 GM/D5W RTU 2 GM/50 ML RTUPB IV ONE (21:46)
[2019-07-05] MEDS: DOXAZOSIN MESYLATE 1 MG TABLET PO SCH (21:47)
[2019-07-05] MEDS: LEVOFLOXACIN 750 MG/D5W RTU 750 MG/150 ML RTUPB IV SCH (21:50)
[2019-07-06] MEDS: IPRATROPIUM BROMIDE 0.02% NEB 0.5 MG/2.5 ML AMPUL NEB SCH ×3 (00:35→16:05)
[2019-07-06] MEDS: LEVALBUTEROL HCL NEB 1.25 MG/3 ML AMPUL NEB SCH ×3 (00:35→16:05)
[2019-07-06 06:30] LABS: HEMOGLOBIN 11.8 g/dL (13.5-17.0); MEAN CORPUSCULAR HEMOGLOBIN 30.6 pg (27.0-33.4); MEAN CORPUSCULAR HGB CONC 32.8 g/dL (32.0-36.0); MEAN CORPUSCULAR VOLUME 93 fl (80-97); PLATELET COUNT 263 10^3/uL (150-450); RED BLOOD COUNT 3.86 10^6/uL (4.35-5.55); RED CELL DISTRIBUTION WIDTH 14.1 % (11.5-14.0); WHITE BLOOD COUNT 5.5 10^3/uL (4.0-10.5)
[2019-07-06] MEDS: PANTOPRAZOLE SODIUM 40 MG TABLET.DR PO SCH (07:45)
[2019-07-06] MEDS: BUDESONIDE NEB 0.5 MG/2 ML AMPUL NEB SCH ×2 (08:57→20:41)
[2019-07-06] MEDS: ACETYLCYSTEINE 20% SOLN 800 MG/4 ML VIAL.NEB NEB SCH ×2 (08:57→20:41)
[2019-07-06] MEDS: INSULIN REG, HUMAN 100 UNIT/ML 3 ML VIAL (PYX) SUBCUT SCH ×4 (10:09→22:09)
[2019-07-06] MEDS: GUAIFENESIN 600 MG TABLET.SA PO SCH ×2 (10:21→22:09)
[2019-07-06] MEDS: POTASSIUM CHLORIDE 10 MEQ TABLET.ER PO SCH (10:21)
[2019-07-06] MEDS: DOCUSATE SODIUM 100 MG CAPSULE PO SCH ×2 (10:21→17:32)
[2019-07-06] MEDS: ASPIRIN 81 MG TABLET, CHEWABLE PO SCH (10:21)
[2019-07-06] MEDS: ISOSORBIDE MONONITRATE 60 MG TAB.ER.24H PO SCH (10:22)
[2019-07-06] MEDS: METOPROLOL SUCCINATE 50 MG TAB.SR.24H PO SCH ×2 (10:22→22:08)
[2019-07-06] MEDS: TORSEMIDE 20 MG TABLET PO SCH (10:22)
[2019-07-06] MEDS: HYDRALAZINE HCL 50 MG TABLET PO SCH ×2 (10:22→22:09)
[2019-07-06] MEDS: ENOXAPARIN SODIUM INJ 100 MG/1 ML DISP.SYRIN SUBCUT SCH ×2 (10:23→22:07)
[2019-07-06] MEDS: SPIRONOLACTONE 25 MG TABLET PO SCH (10:23)
[2019-07-06] MEDS: CEFEPIME HCL 2 GM in DEXTROSE 5%-WATER 50 ML IV SCH ×2 (10:29→22:07)
[2019-07-06 14:40] LABS: APPEARANCE,URINE CLEAR; BILIRUBIN,URINE NEGATIVE (NEGATIVE); COLOR,URINE YELLOW; GLUCOSE, URINE NEGATIVE (NEGATIVE); KETONES,URINE TRACE mg/dL (NEGATIVE); LEUKOCYTE ESTERASE,URINE NEGATIVE (NEGATIVE); NITRITE,URINE NEGATIVE (NEGATIVE); PROTEIN,URINE 100 mg/dL (NEGATIVE); URINE SPECIFIC GRAVITY 1.016; UROBILINOGEN,URINE NEGATIVE mg/dL (<2.0)
--- NOTE | 2019-07-06 15:53 | PDOC PROGRESS REPORT ---
Subjective Progress Note for:: 07/06/19 Subjective:: LUCIE ANDREWS is a 68 year old male past medical history of CHF, HAILEY, diabetes, hypertension, hyperlipidemia, back abuse who was recently admitted here at [facility] for HAILEY, acute CHF, acute respiratory failure, and elevated troponins. Cardiology was consulted and plan was for patient to follow-up with [facility] for possible stress test as outpatient. Presented to ED complaining of acute shortness of breath with exertion and activity, accompanied by subjective fever, chills and productive cough. 07/04/2019. No acute events overnight. Patient still complaining of productive cough, mild respiratory distress, denies any chest pain, nausea, vomiting, diarrhea, constipation or any urinary symptoms. 07/05/2018. Patient was noted to be very stressed, diaphoretic and requiring more oxygen and was transferred to [facility]. 07/06/2018. Significant improvement of respiratory symptoms. Patient is comfortably resting in bed no apparent distress on 2 L of nasal cannula with SPO2 of 97%. Denies any chest pain, nausea, vomiting, diarrhea, constipation or any urinary symptoms. Reason For Visit: RIGHT LUNG HCA PNEUMONIA, ACUTE RESPIRATORY Physical Exam Vital Signs: Temp Pulse Resp BP Pulse Ox 97.9 F 80 17 111/81 97 07/06/19 11:11 07/06/19 14:00 07/06/19 11:11 07/06/19 11:11 07/06/19 12:00 Pulse Oximeter Continuous Start: 07/03/19 21:58 Freq: RTQ4 Status: Active Protocol: Document 07/06/19 12:00 [facility] (Rec: 07/06/19 14:06 [facility] [id number]) Pulse Oximetry Assessment Oxygen Saturation (92-100) 97 Oxygen Flow Rate (L/min) 2 Oxygen Delivery Method Nasal Cannula Fraction of Inspired Oxygen (FIO2) 28 Equipment Usage Equipment in Use Continuous SpO2 Machine # 5 Intake & Output 07/05/19 07/06/19 07/07/19 06:59 06:59 06:59 Intake Total 1330 490 720 Output Total 3075 650 200 Balance -1745 -160 520 Weight 97.4 kg 97.3 kg General appearance: PRESENT: no acute distress, well-developed, well-nourished Head exam: PRESENT: atraumatic, normocephalic Respiratory exam: PRESENT: crackles - Left lower lobe. ABSENT: rales, rhonchi, wheezes Cardiovascular exam: PRESENT: RRR. ABSENT: diastolic murmur, rubs, systolic murmur GI/Abdominal exam: PRESENT: normal bowel sounds, soft. ABSENT: distended, guarding, mass, organolmegaly, rebound, tenderness Neurological exam: PRESENT: alert, awake, oriented to person, oriented to place, oriented to time, oriented to situation, CN II-XII grossly intact. ABSENT: motor sensory deficit Results Laboratory Results: 07/06/19 06:00 07/04/19 05:55 07/06/19 07/06/19 06:00 14:26 WBC 5.5 RBC 3.86 L Hgb 11.8 L Hct 36.0 L MCV 93 MCH 30.6 MCHC 32.8 RDW 14.1 H Plt Count 263 Urine Color YELLOW Urine Appearance CLEAR Urine pH 5.0 Ur Specific [place] 1.016 Urine Protein 100 H Urine Glucose (UA) NEGATIVE Urine Ketones TRACE H Urine Blood NEGATIVE Urine Nitrite NEGATIVE Ur Leukocyte Esterase NEGATIVE Urine WBC (Auto) 1 Urine RBC (Auto) 0 07/03/19 07/03/19 07/04/19 19:14 19:14 12:37 Creatine Kinase 120 CK-MB (CK-2) 1.78 Troponin I 0.071 0.079 NT-Pro-B Natriuret Pep 2410 H 07/04/19 07/05/19 07/05/19 18:30 01:50 08:10 Creatine Kinase CK-MB (CK-2) Troponin I 0.077 0.075 0.074 NT-Pro-B Natriuret Pep 07/05/19 15:30 Creatine Kinase CK-MB (CK-2) Troponin I 0.079 NT-Pro-B Natriuret Pep Impressions: Chest X-Ray 07/03/19 18:08 IMPRESSION: In the appropriate clinical setting, increased right lung base airspace opacities is consistent with a right middle +/- right lower lobe pneumonia. Chest/Abdomen CTA 07/03/19 20:30 IMPRESSION: Suboptimal contrast bolus. No large or central pulmonary embolus. Cardiomegaly. Small bilateral pleural effusions with adjacent consolidation TECHNICAL DOCUMENTATION: Quality ID # 436: Final reports with documentation of one or more dose reduction techniques (e.g., Automated exposure control, adjustment of the mA and/or kV according to patient size, use of iterative reconstruction technique) copyright 2010 [employer]- All Rights Reserved Assessment and Plan - Diagnosis (1) Acute respiratory failure with hypoxia Is this a current diagnosis for this admission?: Yes Plan: Moderate improvement since yesterday. SPO2 WNL on 2 L NC. Due to combination of healthcare/pneumonia and CHF exacerbation. [place] [facility] [place], IV steroids, empiric IV antibiotics, flutter valve, incentive spirometry, ICS, LABA, LABA. (2) HCAP (healthcare-associated pneumonia) Is this a current diagnosis for this admission?: Yes Plan: Likely due to recent hospitalization for acute CHF, HAILEY, acute respiratory failure. Day 4 IV antibiotics. Day 4 IV cefepime. Day 4 IV levofloxacin. Received 1 dose of Zosyn in ED. Received 1 dose of azithromycin in ED. Cultures no growth so far. Continue broad-spectrum empiric IV antibiotics. Follow culture. (3) CHF (congestive heart failure) Qualifiers: Heart failure type: systolic Heart failure chronicity: unspecified Qualified Code(s): I50.20 - Unspecified systolic (congestive) heart failure Is this a current diagnosis for this admission?: Yes Plan: Acute systolic heart failure. proBNP 2410. Denies any history of CAD. History of hypertension. Likely exacerbated due to underlying pneumonia. 06/22/2019. 2D echo LVEF 40%. Left ventricular hypertrophy. Stage I/IV mild diastolic dysfunction. Cardiac diet, fluid restriction, strict in and out, IV diuretics, BARB, beta- blockers, PRN morphine. Patient has been having persistent elevated troponins. Ranging from 0.074- 0.079. With nonspecific T wave abnormalities. Unchanged from previous admission. I have consulted Dr. Harrell discussed this case Dr. Harrell recommends medical management this point with plan to have a outpatient stress test after discharge. (4) Essential hypertension Is this a current diagnosis for this admission?: Yes Plan: Normotensive. Euvolemic. Home meds are hydralazine, Imdur, Lasix, metoprolol and losartan. Restart home meds. Monitor vitals. Adjust meds as needed. Outpatient PCP follow-up. (5) Diabetes mellitus type 2 in nonobese Is this a current diagnosis for this admission?: Yes Plan: Controlled. Hemoglobin A1c WNL. Takes metformin at home. Diabetic diet. Sliding scale insulin. Hypoglycemia protocol. Accu-Chek. Restart home meds upon discharge. Outpatient PCP follow-up. (6) Tobacco use disorder, moderate, dependence Is this a current diagnosis for this admission?: Yes Plan: Counseled on quitting. NicoDerm patch will be provided. (7) Elevated troponin Is this a current diagnosis for this admission?: Yes Plan: Denies any chest pain. High risk for CAD. Ranging from 0.074-0.079. With nonspecific T wave abnormalities. Unchanged from previous admission. This is likely due to acute CHF exacerbation complicated by HCAP. In previous hospitalization Dr Murry from cardiology was consulted. Plan was to have patient do stress test as outpatient. Continue antiplatelets, BARB, beta-blockers. Allergic to statins. Lipid panel from previous admission WNL. I have consulted Dr. Harrell discussed this case Dr. Harrell recommends medical management this point with plan to have a outpatient stress test after discharge.
--- NOTE | 2019-07-06 16:34 | Progress Note ---
Provider Note Provider Note: CARDIOLOGY PROGRESS NOTE by Dr. Concha Alexis on 07/06/2019. SUBJECTIVE: The patient states his shortness of breath is much improved. He still has some degree of orthopnea. There is denies any chest pain or discomfort. He still has cough which is minimal and productive of very scanty whitish sputum. There is no anginal symptoms. There is no PND or leg edema. There is no wheezing. There is no hemoptysis. There is no arrhythmia seen on the monitor. Physical EXAMINATION: The patient is well-built and well-nourished in no acute distress. Selected Entries 07/06/19 15:44 Temperature 98.2 F Temperature Oral Source Pulse Rate 85 Respiratory 17 Rate Blood Pressure 111/79 Blood Pressure 89 Mean BP Location Left Arm BP Position Supine O2 Sat by Pulse 98 Oximetry Oxygen Flow 2.00 Rate Oxygen Delivery Nasal Cannula Method HEAD: Is atraumatic normocephalic. EYES: Pupils are equal round regular reactive to light and accommodation. Extraocular movements are normal. There is no conjunctival pallor. There is no scleral icterus. Ears: Tympanic mem branes are intact. External auditory canals are clear. NOSE: There is no deviated nasal septum. There is no inflammation nasal mucous membrane. MOUTH: Mucous membranes of the mouth are moist. Tongue is moist. There is no ulcers. There is no bleeding from the gums. THROAT: There is no redness of the oropharynx. There is no exudates. SKIN: There is no skin lesions or skin rashes. There is no petechia or ecchymosis. NECK: Supple. There is no JVD. Carotids are equal there is no bruit there is no lymphadenopathy. NECK: Supple. At present there is no JVD. Carotids are equal there is no bruit. There is no lymphadenopathy. There is no goiter. There is no accessory muscle respiration use. Trachea central. LUNGS: There is suggestion of mildly increased expiration. Breath sounds are normal. There is some degree of hyperresonance. There is no rales of CHF. HEART: S1-S2 is heard. There is no S3 gallop. There is no S4 gallop. There is murmur of mitral regurgitation present. There is no rub. ABDOMEN: Is soft. There is no hepatosplenomegaly. Bowel sounds are well heard. EXTREMITIES: Femorals are well felt. There is no femoral bruits. Leg pulses are well felt. There is no pedal edema. There is no DVT or cellulitis. There is no calf tenderness. There is no cyanosis or clubbing. COACH WIRER: The patient is conscious awake alert oriented x3 no focal deficits. PSYCHIATRIC: Patient judgment site are intact. His affect is normal. Labs- All tests 24 hr 07/06/19 07/06/19 07/06/19 06:00 07:15 11:08 WBC 5.5 RBC 3.86 L Hgb 11.8 L Hct 36.0 L MCV 93 MCH 30.6 MCHC 32.8 RDW 14.1 H Plt Count 263 POC Glucose 126 H 147 H Urine Color Urine Appearance Urine pH Ur Specific [place] Urine Protein Urine Glucose (UA) Urine Ketones Urine Blood Urine Nitrite Urine Bilirubin Urine Urobilinogen Ur Leukocyte Esterase Urine WBC (Auto) Urine RBC (Auto) Urine Mucus (Auto) Urine Ascorbic Acid 07/06/19 07/06/19 07/06/19 14:26 15:41 21:15 WBC RBC Hgb Hct MCV MCH MCHC RDW Plt Count POC Glucose 112 H 112 H Urine Color YELLOW Urine Appearance CLEAR Urine pH 5.0 Ur Specific [place] 1.016 Urine Protein 100 H Urine Glucose (UA) NEGATIVE Urine Ketones TRACE H Urine Blood NEGATIVE Urine Nitrite NEGATIVE Urine Bilirubin NEGATIVE Urine Urobilinogen NEGATIVE Ur Leukocyte Esterase NEGATIVE Urine WBC (Auto) 1 Urine RBC (Auto) 0 Urine Mucus (Auto) RARE Urine Ascorbic Acid NEGATIVE Chest X-Ray 07/03/19 18:08 IMPRESSION: In the appropriate clinical setting, increased right lung base airspace opacities is consistent with a right middle +/- right lower lobe pneumonia. Chest/Abdomen CTA 07/03/19 20:30 IMPRESSION: Suboptimal contrast bolus. No large or central pulmonary embolus. Cardiomegaly. Small bilateral pleural effusions with adjacent consolidation TECHNICAL DOCUMENTATION: Quality ID # [id number]: Final reports with documentation of one or more dose reduction techniques (e.g., Automated exposure control, adjustment of the mA and/or kV according to patient size, use of iterative reconstruction technique) copyright 2010 [employer]- All Rights Reserved IMPRESSION/RECOMMENDATION: 1. Acute on chronic systolic heart failure: Continue diuretics continue current BARB inhibitor dose and beta-blockers. Would recommend stopping the patient's full dose Lovenox., Since there is no evidence of acute coronary syndrome. Continue the patient on hydralazine. Instead of isosorbide mononitrate will go with isosorbide dinitrate which is equal antibiotic with hydralazine and nitroglycerin. Continue beta-stephanie. Continue spironolactone. 2. Right middle lobe and right lower lobe pneumonia: Continue antibiotics and respiratory treatments and oxygen. 3. COPD with acute exacerbation: Continue bronchodilators and steroids. 4. Cardiomyopathy with moderately reduced LV ejection fraction. Later once the patient's lung infection and COPD exacerbation and heart failure are controlled, then would recommend IV Lexiscan Cardiolite stress test. 5. Hypertension: Blood pressure well controlled 6. History of tobacco abuse. Patient recently quit smoking. Medications reviewed. Medical regimen and management plan discussed with attending physician. Medical decision making is of moderate complexity. 40 minutes spent as patient more than 50% of time spent in direct patient care. Will follow
[2019-07-06] MEDS: LEVALBUTEROL HCL NEB 0.63 MG/3 ML AMPUL NEB PRN (20:41)
[2019-07-06] MEDS: LEVOFLOXACIN 750 MG TABLET PO SCH (22:08)
[2019-07-06] MEDS: DOXAZOSIN MESYLATE 1 MG TABLET PO SCH (22:08)
[2019-07-07] MEDS: IPRATROPIUM BROMIDE 0.02% NEB 0.5 MG/2.5 ML AMPUL NEB SCH ×2 (00:47→08:32)
[2019-07-07] MEDS: LEVALBUTEROL HCL NEB 1.25 MG/3 ML AMPUL NEB SCH ×2 (00:47→08:32)
[2019-07-07] MEDS: PANTOPRAZOLE SODIUM 40 MG TABLET.DR PO SCH (05:12)
[2019-07-07 06:24] LABS: ABSOLUTE BASOPHILS # (AUTO) 0.1 10^3/uL (0.0-0.2); ABSOLUTE EOSINOPHILS # (AUTO) 0.1 10^3/uL (0.0-0.6); ABSOLUTE LYMPHOCYTES (AUTO) 0.8 10^3/uL (0.5-4.7); ABSOLUTE MONOCYTES (AUTO) 0.5 10^3/uL (0.1-1.4); ABSOLUTE NEUT (AUTO) 3.8 10^3/uL (1.7-8.2); EOSINOPHILS % (AUTO) 1.2 % (0-6); HEMATOCRIT 35.4 % (37.9-51.0); HEMOGLOBIN 11.9 g/dL (13.5-17.0); LYMPHOCYTES % (AUTO) 14.7 % (13-45); MEAN CORPUSCULAR HEMOGLOBIN 30.9 pg (27.0-33.4); MEAN CORPUSCULAR HGB CONC 33.6 g/dL (32.0-36.0); MEAN CORPUSCULAR VOLUME 92 fl (80-97); MONOCYTES % (AUTO) 9.9 % (3-13); PLATELET COUNT 256 10^3/uL (150-450); RED BLOOD COUNT 3.85 10^6/uL (4.35-5.55); RED CELL DISTRIBUTION WIDTH 13.9 % (11.5-14.0); SEGMENTED NEUTROPHILS % (AUTO) 73.2 % (42-78); TOTAL CELLS COUNTED % (AUTO) 100 %; WHITE BLOOD COUNT 5.2 10^3/uL (4.0-10.5)
[2019-07-07 06:44] LABS: ANION GAP 12 (5-19); BLOOD UREA NITROGEN 16 mg/dL (7-20); CARBON DIOXIDE 20 mmol/L (22-30); CHLORIDE 107 mmol/L (98-107); GLUCOSE 108 mg/dL (75-110); POTASSIUM 3.6 mmol/L (3.6-5.0)
[2019-07-07] MEDS: BUDESONIDE NEB 0.5 MG/2 ML AMPUL NEB SCH ×2 (08:32→20:28)
[2019-07-07] MEDS: ACETYLCYSTEINE 20% SOLN 800 MG/4 ML VIAL.NEB NEB SCH ×2 (08:32→20:28)
--- NOTE | 2019-07-07 09:21 | PDOC PROGRESS REPORT ---
Subjective Progress Note for:: 07/07/19 Subjective:: LUCIE ANDREWS is a 68 year old male past medical history of CHF, HAILEY, diabetes, hypertension, hyperlipidemia, back abuse who was recently admitted here at [facility] for HAILEY, acute CHF, acute respiratory failure, and elevated troponins. Cardiology was consulted and plan was for patient to follow-up with [facility] for possible stress test as outpatient. Presented to ED complaining of acute shortness of breath with exertion and activity, accompanied by subjective fever, chills and productive cough. 07/04/2019. No acute events overnight. Patient still complaining of productive cough, mild respiratory distress, denies any chest pain, nausea, vomiting, diarrhea, constipation or any urinary symptoms. 07/05/2018. Patient was noted to be very stressed, diaphoretic and requiring more oxygen and was transferred to [facility]. 07/06/2018. Significant improvement of respiratory symptoms. Patient is comfortably resting in bed no apparent distress on 2 L of nasal cannula with SPO2 of 97%. Denies any chest pain, nausea, vomiting, diarrhea, constipation or any urinary symptoms. 07/07/2019. Complaining of worsening shortness of breath compared to yesterday, denies any chest pain, nausea, vomiting, diarrhea, constipation or any urinary symptoms. Reason For Visit: RIGHT LUNG HCA PNEUMONIA, ACUTE RESPIRATORY Physical Exam Vital Signs: Temp Pulse Resp BP Pulse Ox 97.7 F 94 22 H 122/90 H 98 07/07/19 07:07 07/07/19 07:07 07/07/19 03:15 07/07/19 07:07 07/07/19 07:07 Pulse Oximeter Continuous Start: 07/03/19 21:58 Freq: RTQ4 Status: Active Protocol: Document 07/07/19 04:35 PMU (Rec: 07/07/19 05:23 PMU [id number]) Pulse Oximetry Assessment Oxygen Saturation (92-100) 98 Oxygen Flow Rate (L/min) 2 Oxygen Delivery Method Nasal Cannula Fraction of Inspired Oxygen (FIO2) 28 Equipment Usage Equipment in Use Continuous SpO2 Machine # 5 Intake & Output 07/06/19 07/07/19 07/08/19 06:59 06:59 06:59 Intake Total 490 1060 Output Total 650 800 Balance -160 260 Weight 97.3 kg 98.3 kg General appearance: PRESENT: no acute distress, mild distress, well-developed, well-nourished Neck exam: ABSENT: carotid bruit, JVD, lymphadenopathy, thyromegaly Respiratory exam: ABSENT: rales, rhonchi, wheezes Cardiovascular exam: PRESENT: RRR. ABSENT: diastolic murmur, rubs, systolic murmur GI/Abdominal exam: PRESENT: normal bowel sounds, soft. ABSENT: distended, guarding, mass, organolmegaly, rebound, tenderness Neurological exam: PRESENT: alert, awake, oriented to person, oriented to place, oriented to time, oriented to situation, CN II-XII grossly intact. ABSENT: motor sensory deficit Results Laboratory Results: 07/07/19 05:16 07/07/19 05:16 07/06/19 07/07/19 07/07/19 14:26 05:16 05:16 WBC 5.2 RBC 3.85 L Hgb 11.9 L Hct 35.4 L MCV 92 MCH 30.9 MCHC 33.6 RDW 13.9 Plt Count 256 Seg Neutrophils % 73.2 Sodium 139.2 Potassium 3.6 Chloride 107 Carbon Dioxide 20 L Anion Gap 12 BUN 16 Creatinine 1.69 H Est GFR ( Amer) 49 L Glucose 108 Calcium 9.0 Urine Color YELLOW Urine Appearance CLEAR Urine pH 5.0 Ur Specific [place] 1.016 Urine Protein 100 H Urine Glucose (UA) NEGATIVE Urine Ketones TRACE H Urine Blood NEGATIVE Urine Nitrite NEGATIVE Ur Leukocyte Esterase NEGATIVE Urine WBC (Auto) 1 Urine RBC (Auto) 0 07/03/19 07/03/19 07/04/19 19:14 19:14 12:37 Creatine Kinase 120 CK-MB (CK-2) 1.78 Troponin I 0.071 0.079 NT-Pro-B Natriuret Pep 2410 H 07/04/19 07/05/19 07/05/19 18:30 01:50 08:10 Creatine Kinase CK-MB (CK-2) Troponin I 0.077 0.075 0.074 NT-Pro-B Natriuret Pep 07/05/19 15:30 Creatine Kinase CK-MB (CK-2) Troponin I 0.079 NT-Pro-B Natriuret Pep Impressions: Chest X-Ray 07/03/19 18:08 IMPRESSION: In the appropriate clinical setting, increased right lung base airspace opacities is consistent with a right middle +/- right lower lobe pneumonia. Chest/Abdomen CTA 07/03/19 20:30 IMPRESSION: Suboptimal contrast bolus. No large or central pulmonary embolus. Cardiomegaly. Small bilateral pleural effusions with adjacent consolidation TECHNICAL DOCUMENTATION: Quality ID # 436: Final reports with documentation of one or more dose reduction techniques (e.g., Automated exposure control, adjustment of the mA and/or kV according to patient size, use of iterative reconstruction technique) copyright 2011 [employer]- All Rights Reserved Assessment and Plan - Diagnosis (1) Acute respiratory failure with hypoxia Is this a current diagnosis for this admission?: Yes Plan: Worsening compared to yesterday. Endorsing worsening shortness of breath. SPO2 WNL on 2 L NC. Due to combination of healthcare/pneumonia and CHF exacerbation and COPD exacerbation. Continue continue BiPAP, IV steroids, empiric IV antibiotics, flutter valve, incentive spirometry, ICS, LABA, LABA. (2) HCAP (healthcare-associated pneumonia) Is this a current diagnosis for this admission?: Yes Plan: Likely due to recent hospitalization for acute CHF, HAILEY, acute respiratory failure. Day 5 IV antibiotics. Day 5 IV cefepime. Day 5 IV levofloxacin. Received 1 dose of Zosyn in ED. Received 1 dose of azithromycin in ED. Cultures no growth so far. Continue broad-spectrum empiric IV antibiotics. Follow culture. (3) CHF (congestive heart failure) Qualifiers: Heart failure type: systolic Heart failure chronicity: unspecified Qualified Code(s): I50.20 - Unspecified systolic (congestive) heart failure Is this a current diagnosis for this admission?: Yes Plan: Acute systolic heart failure. proBNP 2410. Denies any history of CAD. History of hypertension. Likely exacerbated due to underlying pneumonia. 06/22/2019. 2D echo LVEF 40%. Left ventricular hypertrophy. Stage I/IV mild diastolic dysfunction. Cardiac diet, fluid restriction, strict in and out, IV diuretics, BARB, beta- blockers, PRN morphine. Patient has been having persistent elevated troponins. Ranging from 0.074- 0.079. With nonspecific T wave abnormalities. Unchanged from previous admission. I have consulted Dr. Harrell discussed this case Dr. Harrell recommends medical management this point with plan to have a outpatient stress test after discharge. Cardiology consulted. Recommendations noted. Please refer to note. (4) Essential hypertension Is this a current diagnosis for this admission?: Yes Plan: Normotensive. Euvolemic. Home meds are hydralazine, Imdur, Lasix, metoprolol and losartan. Restart home meds. Monitor vitals. Adjust meds as needed. Outpatient PCP follow-up. (5) Diabetes mellitus type 2 in nonobese Is this a current diagnosis for this admission?: Yes Plan: Controlled. Hemoglobin A1c WNL. Takes metformin at home. Diabetic diet. Sliding scale insulin. Hypoglycemia protocol. Accu-Chek. Restart home meds upon discharge. Outpatient PCP follow-up. (6) Tobacco use disorder, moderate, dependence Is this a current diagnosis for this admission?: Yes Plan: Counseled on quitting. NicoDerm patch will be provided. (7) Elevated troponin Is this a current diagnosis for this admission?: Yes Plan: Denies any chest pain. High risk for CAD. Ranging from 0.074-0.079. With nonspecific T wave abnormalities. Unchanged from previous admission. This is likely due to acute CHF exacerbation complicated by HCAP. In previous hospitalization Dr Murry from cardiology was consulted. Plan was to have patient do stress test as outpatient. Continue antiplatelets, BARB, beta-blockers. Allergic to statins. Lipid panel from previous admission WNL. I have consulted Dr. Harrell discussed this case Dr. Harrell recommends medical management this point with plan to have a outpatient stress test after discharge. Cardiology consulted. Please refer to note. Recommendations noted. (8) COPD exacerbation Is this a current diagnosis for this admission?: Yes Plan: Acute COPD exacerbation due to above. Non-oxygen dependent. Plan as per above. (9) Acute kidney injury superimposed on CKD Is this a current diagnosis for this admission?: Yes Plan: Prerenal. Worsening of renal function since admission. Monitor volume status, monitor electrolytes and replace as needed. Avoid nephrotoxic meds. Daily BMP. If no improvement will consult nephrology.
[2019-07-07] MEDS: INSULIN REG, HUMAN 100 UNIT/ML 3 ML VIAL (PYX) SUBCUT SCH ×4 (09:58→22:14)
[2019-07-07] MEDS: ASPIRIN 81 MG TABLET, CHEWABLE PO SCH (10:06)
[2019-07-07] MEDS: POTASSIUM CHLORIDE 10 MEQ TABLET.ER PO SCH (10:06)
[2019-07-07] MEDS: FUROSEMIDE INJ/PF 40 MG/4 ML SDV IV SCH ×2 (10:06→22:12)
[2019-07-07] MEDS: METOPROLOL SUCCINATE 50 MG TAB.SR.24H PO SCH ×2 (10:06→22:12)
[2019-07-07] MEDS: HYDRALAZINE HCL 50 MG TABLET PO SCH ×2 (10:06→22:15)
[2019-07-07] MEDS: GUAIFENESIN 600 MG TABLET.SA PO SCH ×2 (10:06→22:15)
[2019-07-07] MEDS: DOCUSATE SODIUM 100 MG CAPSULE PO SCH ×2 (10:07→18:51)
[2019-07-07] MEDS: ISOSORBIDE MONONITRATE 60 MG TAB.ER.24H PO SCH (10:07)
[2019-07-07] MEDS: CEFEPIME HCL 2 GM in DEXTROSE 5%-WATER 50 ML IV SCH ×2 (10:08→22:11)
[2019-07-07] MEDS: FLUTICASONE/UMECLIDIN/VILANTER 100-62.5-25 MCG/DOSE IH SCH (10:19)
[2019-07-07] MEDS: IPRATROPIUM/ALBUTEROL 0.5-2.5 MG/3 ML AMPUL NEB SCH ×2 (13:36→20:28)
[2019-07-07] MEDS ORDERED: METHYLPREDNISOLONE INJ 40 MG/1 ML SDV IV SCH (14:00)
[2019-07-07] MEDS: METHYLPREDNISOLONE INJ 125 MG/2 ML SDV IV SCH ×2 (14:13→22:36)
[2019-07-07] MEDS: HEPARIN SOD (PORCINE) 5,000 UNIT/ML 1 ML VIAL SUBCUT SCH ×2 (14:14→22:12)
[2019-07-07] MEDS: LEVOFLOXACIN 750 MG TABLET PO SCH (22:12)
[2019-07-07] MEDS: DOXAZOSIN MESYLATE 1 MG TABLET PO SCH (22:15)
[2019-07-08 05:26] LABS: HEMATOCRIT 35.9 % (37.9-51.0); HEMOGLOBIN 11.9 g/dL (13.5-17.0); MEAN CORPUSCULAR HEMOGLOBIN 30.7 pg (27.0-33.4); MEAN CORPUSCULAR HGB CONC 33.3 g/dL (32.0-36.0); MEAN CORPUSCULAR VOLUME 92 fl (80-97); PLATELET COUNT 255 10^3/uL (150-450); RED CELL DISTRIBUTION WIDTH 13.6 % (11.5-14.0); WHITE BLOOD COUNT 4.3 10^3/uL (4.0-10.5)
[2019-07-08] MEDS: HEPARIN SOD (PORCINE) 5,000 UNIT/ML 1 ML VIAL SUBCUT SCH ×3 (05:28→22:39)
[2019-07-08] MEDS: PANTOPRAZOLE SODIUM 40 MG TABLET.DR PO SCH (05:28)
[2019-07-08] MEDS: METHYLPREDNISOLONE INJ 125 MG/2 ML SDV IV SCH ×3 (05:28→22:38)
[2019-07-08] MEDS: BUDESONIDE NEB 0.5 MG/2 ML AMPUL NEB SCH ×2 (08:19→20:41)
[2019-07-08] MEDS: IPRATROPIUM/ALBUTEROL 0.5-2.5 MG/3 ML AMPUL NEB SCH ×3 (08:19→20:41)
[2019-07-08] MEDS: ACETYLCYSTEINE 20% SOLN 800 MG/4 ML VIAL.NEB NEB SCH ×2 (08:19→20:42)
[2019-07-08] MEDS: INSULIN REG, HUMAN 100 UNIT/ML 3 ML VIAL (PYX) SUBCUT SCH ×4 (10:03→22:50)
[2019-07-08] MEDS: FLUTICASONE/UMECLIDIN/VILANTER 100-62.5-25 MCG/DOSE IH SCH (10:09)
[2019-07-08] MEDS: CEFEPIME HCL 2 GM in DEXTROSE 5%-WATER 50 ML IV SCH ×2 (10:09→23:06)
[2019-07-08] MEDS: FUROSEMIDE INJ/PF 40 MG/4 ML SDV IV SCH ×2 (10:10→22:38)
[2019-07-08] MEDS: DOCUSATE SODIUM 100 MG CAPSULE PO SCH ×2 (10:10→17:36)
[2019-07-08] MEDS: GUAIFENESIN 600 MG TABLET.SA PO SCH ×2 (10:10→22:38)
[2019-07-08] MEDS: ISOSORBIDE MONONITRATE 60 MG TAB.ER.24H PO SCH (10:10)
[2019-07-08] MEDS: ASPIRIN 81 MG TABLET, CHEWABLE PO SCH (10:10)
[2019-07-08] MEDS: METOPROLOL SUCCINATE 50 MG TAB.SR.24H PO SCH ×2 (10:10→22:38)
[2019-07-08] MEDS: HYDRALAZINE HCL 50 MG TABLET PO SCH ×2 (10:10→22:38)
[2019-07-08] MEDS: POTASSIUM CHLORIDE 10 MEQ TABLET.ER PO SCH (10:11)
--- NOTE | 2019-07-08 17:37 | PDOC DISCHARGE SUMMARY ---
Impression - Admit/DC Date/PCP Admission Date/Primary Care Provider: 07/03/19 21:27 ALEXANDER VELASQUEZ MD Discharge Date: 07/08/19 - Discharge Diagnosis (1) HCAP (healthcare-associated pneumonia) Is this a current diagnosis for this admission?: Yes (2) CHF (congestive heart failure) Is this a current diagnosis for this admission?: Yes (3) Acute respiratory failure with hypoxia Is this a current diagnosis for this admission?: Yes (4) Essential hypertension Is this a current diagnosis for this admission?: Yes (5) Diabetes mellitus type 2 in nonobese Is this a current diagnosis for this admission?: Yes (6) Tobacco use disorder, moderate, dependence Is this a current diagnosis for this admission?: Yes (7) Elevated troponin Is this a current diagnosis for this admission?: Yes - Additional Information Resuscitation Status: Full Code Referrals: ALEXANDER VELASQUEZ MD [Primary Care Provider] - Follow up as needed RILEY MULTANI MD [ACTIVE STAFF] - Prescriptions: Fluticasone/Salmeterol [Advair 500-50 Diskus 14 Dose/Diskus] 1 inh IH Q12H 30 Days #1 inhaler Albuterol Sulfate [Albuterol Sulfate Hfa] 18 gm IH Q6 30 Days #1 hfa.aer.ad Aspirin [Daya Chewable Aspirin] 81 mg PO DAILY 30 Days #30 tab.chew Furosemide [Lasix 40 mg Tablet] 40 mg PO BID 30 Days #30 tablet Levofloxacin [Levaquin] 750 mg PO DAILY 3 Days #3 tablet Prednisone 50 mg PO DAILY 5 Days #5 tablet Tiotropium [place] [Spiriva Respimat] 4 gm IH DAILY 30 Days #1 mist.inhal Metoprolol Succinate [Toprol XL 100 mg Tablet] 100 mg PO DAILY 30 Days #30 tab.sr.24h Home Medications: Metformin HCl [Glucophage 500 mg Tablet] 500 mg PO BID 10/03/11 Omeprazole [Prilosec 20 mg Capsule] 20 mg PO DAILY 10/03/11 Terazosin HCl 20 mg PO DAILY 10/03/11 Lovastatin [Altoprev] 40 mg PO QHS 06/22/19 Meloxicam [Mobic] 15 mg PO DAILYP PRN 06/22/19 Hydralazine HCl [Apresoline 25 mg Tablet] 25 mg PO Q6 #120 tablet 06/25/19 Isosorbide Dinitrate [Isordil Titradose 20 mg Tablet] 20 mg PO Q6 #120 tablet 06/25/19 Albuterol Sulfate [Albuterol Sulfate Hfa] 18 gm IH Q6 30 Days #1 hfa.aer.ad 07/08/19 Aspirin [Daya Chewable Aspirin] 81 mg PO DAILY 30 Days #30 tab.chew 07/08/19 Fluticasone/Salmeterol [Advair 500-50 Diskus 14 Dose/Diskus] 1 inh IH Q12H 30 Days #1 inhaler 07/08/19 Furosemide [Lasix 40 mg Tablet] 40 mg PO BID 30 Days #30 tablet 07/08/19 Levofloxacin [Levaquin] 750 mg PO DAILY 3 Days #3 tablet 07/08/19 Metoprolol Succinate [Toprol XL 100 mg Tablet] 100 mg PO DAILY 30 Days #30 tab.sr.24h 07/08/19 Prednisone 50 mg PO DAILY 5 Days #5 tablet 07/08/19 Tiotropium [place] [Spiriva Respimat] 4 gm IH DAILY 30 Days #1 mist.inhal 07/08/19 History of Present Illiness History of Present Illness: LUCIE ANDREWS is a 68 year old male past medical history of CHF, HAILEY, diabetes, hypertension, hyperlipidemia, back abuse who was recently admitted here at [facility] for HAILEY, acute CHF, acute respiratory failure, and elevated troponins. Cardiology was consulted and plan was for patient to follow-up with [facility] for possible stress test as outpatient. Presented to ED complaining of acute shortness of breath with exertion and activity, accompanied by subjective fever, chills and productive cough. Hospital Course Hospital Course: (1) Acute respiratory failure with hypoxia Significant improvement. PO2 WNL on RA. Most likely due to combination of healthcare/pneumonia and CHF exacerbation and COPD exacerbation. Was a started on BiPAP, IV steroids, empiric IV antibiotics, flutter valve, incentive spirometry, ICS, LABA, LABA. Discharged on LABA, ICS, LABA, p.o. steroids and levofloxacin for another 3 days. (2) HCAP (healthcare-associated pneumonia) Likely due to recent hospitalization for acute CHF, HAILEY, acute respiratory failure. Received 5 days of IV levofloxacin. Received 5 days of IV cefepime. Received 1 dose of Zosyn in ED. Received 1 dose of azithromycin in ED. Was discharged on levofloxacin p.o. for another 3 days. All cultures remain negative. (3) CHF (congestive heart failure) Acute systolic heart failure. proBNP 2410. Denies any history of CAD. History of hypertension. Likely exacerbated due to underlying pneumonia. 06/22/2019. 2D echo LVEF 40%. Left ventricular hypertrophy. Stage I/IV mild diastolic dysfunction. Was started on cardiac diet, fluid restriction, strict in and out, IV diuretics, LEVI, beta-blockers, PRN morphine. Patient was having having persistent elevated troponins. Ranging from 0.074- 0.079. With nonspecific T wave abnormalities. Unchanged from previous admission. I have consulted Dr. Multani discussed this case Dr. Multani recommends medical management this point with plan to have a outpatient stress test after discharge. Cardiology consulted. Recommendations noted. Please refer to note. (4) Essential hypertension Normotensive. Euvolemic. Home meds are hydralazine, Imdur, Lasix, metoprolol and losartan. Ordered home meds. Adjusted dosages. Outpatient follow-up with PCP and cardiology recommended. (5) Diabetes mellitus type 2 in nonobese Controlled. Hemoglobin A1c WNL. Takes metformin at home. Was a started on diabetic diet, sliding scale insulin, hypoglycemia protocol and Accu-Chek. Advised to restart home meds upon discharge. (6) Tobacco use disorder, moderate, dependence Counseled on quitting. NicoDerm patch will be provided. (7) Elevated troponin Denied any chest pain. High risk for CAD. Ranging from 0.074-0.079. With nonspecific T wave abnormalities. Unchanged from previous admission. This is likely due to acute CHF exacerbation complicated by HCAP. In previous hospitalization Dr Murry from cardiology was consulted. Plan was to have patient do stress test as outpatient. Continued antiplatelets, beta-blockers. Allergic to Levi Allergic to statins. Lipid panel from previous admission WNL. Dr. Multani director medical economics consulted who recommended medical management this point with plan to have a outpatient stress test after discharge. Please refer to note. (8) COPD exacerbation Resolved. Acute COPD exacerbation due to above. Non-oxygen dependent. Plan as per above. (9) Acute kidney injury superimposed on CKD Prerenal. Worsening of renal function since admission. Monitor volume status, monitor electrolytes and replace as needed. Avoid nephrotoxic meds. Daily BMP. If no improvement will consult nephrology Physical Exam Vital Signs: Temp Pulse Resp BP Pulse Ox 98.1 F 91 18 107/78 97 07/08/19 15:17 07/08/19 15:47 07/08/19 15:17 07/08/19 15:17 07/08/19 16:53 Pulse Oximeter Continuous Start: 07/03/19 21:58 Freq: RTQ4 Status: Active Protocol: Document 07/08/19 13:03 [facility] (Rec: 07/08/19 13:19 [facility] [id number]) Pulse Oximetry Assessment Oxygen Saturation (92-100) 90 Oxygen Delivery Method Room Air Fraction of Inspired Oxygen (FIO2) 21 Equipment Usage Equipment in Use Continuous SpO2 Machine # 5 Intake & Output 07/07/19 07/08/19 07/09/19 06:59 06:59 06:59 Intake Total 1060 1060 600 Output Total 800 1370 725 Balance 260 -310 -125 Weight 98.3 kg 96.5 kg General appearance: PRESENT: no acute distress, well-developed, well-nourished Head exam: PRESENT: atraumatic, normocephalic Respiratory exam: PRESENT: clear to auscultation [place]. ABSENT: rales, rhonchi, wheezes GI/Abdominal exam: PRESENT: normal bowel sounds, soft. ABSENT: distended, guarding, mass, organolmegaly, rebound, tenderness Neurological exam: PRESENT: alert, awake, oriented to person, oriented to place, oriented to time, oriented to situation, CN II-XII grossly intact. ABSENT: motor sensory deficit Results Laboratory Results: WBC 4.3 10^3/uL (4.0-10.5) 07/08/19 05:02 RBC 3.90 10^6/uL (4.35-5.55) L 07/08/19 05:02 Hgb 11.9 g/dL (13.5-17.0) L 07/08/19 05:02 Hct 35.9 % (37.9-51.0) L 07/08/19 05:02 MCV 92 fl (80-97) 07/08/19 05:02 MCH 30.7 pg (27.0-33.4) 07/08/19 05:02 MCHC 33.3 g/dL (32.0-36.0) 07/08/19 05:02 RDW 13.6 % (11.5-14.0) 07/08/19 05:02 Plt Count 255 10^3/uL (150-450) 07/08/19 05:02 Lymph % (Auto) 14.7 % (13-45) 07/07/19 05:16 [place] % (Auto) 9.9 % (3-13) 07/07/19 05:16 Eos % (Auto) 1.2 % (0-6) 07/07/19 05:16 Baso % (Auto) 1.0 % (0-2) 07/07/19 05:16 Absolute Neuts (auto) 3.8 10^3/uL (1.7-8.2) 07/07/19 05:16 Absolute Lymphs (auto) 0.8 10^3/uL (0.5-4.7) 07/07/19 05:16 Absolute Monos (auto) 0.5 10^3/uL (0.1-1.4) 07/07/19 05:16 Absolute Eos (auto) 0.1 10^3/uL (0.0-0.6) 07/07/19 05:16 Absolute Basos (auto) 0.1 10^3/uL (0.0-0.2) 07/07/19 05:16 Seg Neutrophils % 73.2 % (42-78) 07/07/19 05:16 Carbonic Acid 0.97 mmol/L (1.05-1.35) L 07/03/19 21:04 HCO3/H2CO3 Ratio 22:1 07/03/19 21:04 ABG pH 7.45 (7.35-7.45) 07/03/19 21:04 ABG pCO2 32.2 mmHg (35-45) L 07/03/19 21:04 ABG pO2 83.5 mmHg (80-100) 07/03/19 21:04 ABG HCO3 22.0 mmol/L (20-24) 07/03/19 21:04 ABG Total CO2 23.0 mmol/L (23-27) 07/03/19 21:04 ABG O2 Saturation 96.8 % (94-98) 07/03/19 21:04 ABG Base Excess -1.2 mmol/L 07/03/19 21:04 FiO2 4L 07/03/19 21:04 Sodium 139.2 mmol/L (137-145) 07/07/19 05:16 Potassium 3.6 mmol/L (3.6-5.0) 07/07/19 05:16 Chloride 107 mmol/L (98-107) 07/07/19 05:16 Carbon Dioxide 20 mmol/L (22-30) L 07/07/19 05:16 Anion Gap 12 (5-19) 07/07/19 05:16 BUN 16 mg/dL (7-20) 07/07/19 05:16 Creatinine 1.69 mg/dL (0.52-1.25) H 07/07/19 05:16 Est GFR ( Amer) 49 (>60) L 07/07/19 05:16 Est GFR (MDRD) Non-Af 40 (>60) L 07/07/19 05:16 Glucose 108 mg/dL (75-110) 07/07/19 05:16 POC Glucose 149 mg/dL (70-110) H 07/08/19 15:47 Lactic Acid 1.0 mmol/L (0.7-2.1) 07/03/19 19:35 Calcium 9.0 mg/dL (8.4-10.2) 07/07/19 05:16 Total Bilirubin 1.7 mg/dL (0.2-1.3) H 07/04/19 05:55 Direct Bilirubin 0.2 mg/dL (0.0-0.4) 07/04/19 05:55 Neonat Total Bilirubin Not Reportable 07/04/19 05:55 Neonat Direct Bilirubin Not Reportable 07/04/19 05:55 Neonat Indirect Bili Not Reportable 07/04/19 05:55 AST 19 U/L (17-59) 07/04/19 05:55 ALT 9 U/L (<50) 07/04/19 05:55 Alkaline Phosphatase 35 U/L (38-126) L 07/04/19 05:55 Creatine Kinase 120 U/L (55-170) 07/03/19 19:14 CK-MB (CK-2) 1.78 ng/mL (<4.55) 07/03/19 19:14 Troponin I 0.079 ng/mL 07/05/19 15:30 NT-Pro-B Natriuret Pep 2410 pg/mL (<125) H 07/03/19 19:14 Total Protein 6.0 g/dL (6.3-8.2) L 07/04/19 05:55 Albumin 3.4 g/dL (3.5-5.0) L 07/04/19 05:55 Urine Color YELLOW 07/06/19 14:26 Urine Appearance CLEAR 07/06/19 14:26 Urine pH 5.0 (5.0-9.0) 07/06/19 14:26 Ur Specific [place] 1.016 07/06/19 14:26 Urine Protein 100 mg/dL (NEGATIVE) H 07/06/19 14:26 Urine Glucose (UA) NEGATIVE mg/dL (NEGATIVE) 07/06/19 14:26 Urine Ketones TRACE mg/dL (NEGATIVE) H 07/06/19 14:26 Urine Blood NEGATIVE (NEGATIVE) 07/06/19 14:26 Urine Nitrite NEGATIVE (NEGATIVE) 07/06/19 14:26 Urine Bilirubin NEGATIVE (NEGATIVE) 07/06/19 14:26 Urine Urobilinogen NEGATIVE mg/dL (<2.0) 07/06/19 14:26 Ur Leukocyte Esterase NEGATIVE (NEGATIVE) 07/06/19 14:26 Urine WBC (Auto) 1 /HPF 07/06/19 14:26 Urine RBC (Auto) 0 /HPF 07/06/19 14:26 Urine Bacteria (Auto) TRACE /HPF 07/03/19 20:18 Urine Mucus (Auto) RARE /LPF 07/06/19 14:26 Urine Ascorbic Acid NEGATIVE (NEGATIVE) 07/06/19 14:26 07/03/19 07/04/19 07/04/19 19:14 12:37 18:30 CK-MB (CK-2) 1.78 Troponin I 0.071 0.079 0.077 NT-Pro-B Natriuret Pep 2410 H 07/05/19 07/05/19 07/05/19 01:50 08:10 15:30 CK-MB (CK-2) Troponin I 0.075 0.074 0.079 NT-Pro-B Natriuret Pep Impressions: Chest X-Ray 07/03/19 18:08 IMPRESSION: In the appropriate clinical setting, increased right lung base airspace opacities is consistent with a right middle +/- right lower lobe pneumonia. Chest/Abdomen CTA 07/03/19 20:30 IMPRESSION: Suboptimal contrast bolus. No large or central pulmonary embolus. Cardiomegaly. Small bilateral pleural effusions with adjacent consolidation TECHNICAL DOCUMENTATION: Quality ID # 436: Final reports with documentation of one or more dose reduction techniques (e.g., Automated exposure control, adjustment of the mA and/or kV according to patient size, use of iterative reconstruction technique) copyright 2011 [employer]- All Rights Reserved Stroke Is this a Stroke Patient?: No Acute Heart Failure - Is this a Heart Failure Patient?: No
--- NOTE | 2019-07-08 18:46 | Progress Note ---
Provider Note Provider Note: CARDIOLOGY PROGRESS NOTE by Dr. Concha Harrell on 07/08/2019. OBJECTIVE: The patient denies any chest pain or shortness of breath. He has no chest discomfort. He has no PND orthopnea. There is no cough or sputum production. There is no wheezing. There is no arrhythmia seen on the monitor. There is no TIA CVA symptoms. The patient is anxious to go home. PHYSICAL EXAMINATION: The patient is well-built and well-nourished in no acute distress. Selected Entries 07/08/19 07/08/19 08:28 11:26 Pulse Rate 86 Respiratory 20 Rate Blood Pressure 112/84 Blood Pressure 93 Mean BP Location Left Arm BP Position Supine O2 Sat by Pulse 100 Oximetry Oxygen Delivery Room Air Method HEAD: Is atraumatic normocephalic. EYES: Pupils are equal round regular reactive to light and accommodation. Extraocular movements are normal. There is no conjunctival pallor. There is no scleral icterus. Ears: Tympanic membranes are intact. External auditory canals are clear. NOSE: There is no deviated nasal septum. There is no inflammation nasal mucous membrane. MOUTH: Mucous membranes of the mouth are moist. Tongue is moist. There is no ulcers. There is no bleeding from the gums. THROAT: There is no redness of the oropharynx. There is no exudates. SKIN: There is no skin lesions or skin rashes. There is no petechia or ecchymosis. NECK: Supple. There is no JVD. Carotids are equal there is no bruit there is no lymphadenopathy. NECK: Supple. At present there is no JVD. Carotids are equal there is no bruit. There is no lymphadenopathy. There is no goiter. There is no accessory muscle respiration use. Trachea central. LUNGS: There is diminished air entry and prolonged expiration. There is no rhonchi rales or wheezing. On palpation there is no chest wall tenderness. There is hyperresonance. There is no rales of CHF. HEART: S1-S2 is heard. There is no S3 gallop. There is no S4 gallop. There is murmur of mitral regurgitation present. There is no rub. ABDOMEN: Is soft. There is no hepatosplenomegaly. Bowel sounds are well heard. EXTREMITIES: Femorals are well felt. There is no femoral bruits. Leg pulses are well felt. There is no pedal edema. There is no DVT or cellulitis. There is no calf tenderness. There is no cyanosis or clubbing. ENVIRONMENTAL SERVICES COORDINATOR: The patient is conscious awake alert oriented x3 no focal deficits. PSYCHIATRIC: Patient judgment site are intact. His affect is normal. Labs- All tests 24 hr 07/07/19 07/08/19 07/08/19 21:14 05:02 08:28 WBC 4.3 RBC 3.90 L Hgb 11.9 L Hct 35.9 L MCV 92 MCH 30.7 MCHC 33.3 RDW 13.6 Plt Count 255 POC Glucose 163 H 127 H 07/08/19 07/08/19 11:28 15:47 WBC RBC Hgb Hct MCV MCH MCHC RDW Plt Count POC Glucose 163 H 149 H Chest X-Ray 07/03/19 18:08 IMPRESSION: In the appropriate clinical setting, increased right lung base airspace opacities is consistent with a right middle +/- right lower lobe pneumonia. Chest/Abdomen CTA 07/03/19 20:30 IMPRESSION: Suboptimal contrast bolus. No large or central pulmonary embolus. Cardiomegaly. Small bilateral pleural effusions with adjacent consolidation TECHNICAL DOCUMENTATION: Quality ID # [id number]: Final reports with documentation of one or more dose reduction techniques (e.g., Automated exposure control, adjustment of the mA and/or kV according to patient size, use of iterative reconstruction technique) IMPRESSION/RECOMMENDATION: 1. Acute on chronic systolic heart failure: Continue diuretics continue current BARB inhibitor dose and beta-blockers. Would recommend stopping the patient's full dose Lovenox., Since there is no evidence of acute coronary syndrome. Continue the patient on hydralazine. Instead of isosorbide mononitrate will go with isosorbide dinitrate which is equal antibiotic with hydralazine and nitroglycerin. Continue beta-stephanie. Continue spironolactone. 2. Right middle lobe and right lower lobe pneumonia: Continue antibiotics and respiratory treatments and oxygen. 3. COPD with acute exacerbation: Continue bronchodilators and steroids. 4. Cardiomyopathy with moderately reduced LV ejection fraction. Later once the patient's lung infection and COPD exacerbation and heart failure are controlled, then would recommend IV Lexiscan Cardiolite stress test. 5. Hypertension: Blood pressure well controlled 6. History of tobacco abuse. Patient recently quit smoking. Patient counseled to continue to refrain from smoking Medications reviewed medical regimen and management plan discussed with attending physician. Cardiac status stable. Agree with discharging the patient. The patient follow-up with me in the office. The patient does have my cell phone number. Medical decision making is of moderate complexity. 40 minutes spent on this patient with more than 50% of time spent in direct patient care. Discussed the patient's condition with the patient and the patient's . All questions answered. Will sign off.
[2019-07-08 20:03] LABS: ANION GAP 14 (5-19); BLOOD UREA NITROGEN 29 mg/dL (7-20); CALCIUM 9.7 mg/dL (8.4-10.2); CARBON DIOXIDE 19 mmol/L (22-30); CHLORIDE 106 mmol/L (98-107); GLUCOSE 153 mg/dL (75-110); POTASSIUM 4.5 mmol/L (3.6-5.0)
[2019-07-08] MEDS: LEVOFLOXACIN 750 MG TABLET PO SCH (22:38)
[2019-07-08] MEDS: DOXAZOSIN MESYLATE 1 MG TABLET PO SCH (22:39)
[2019-07-09] MEDS: METHYLPREDNISOLONE INJ 125 MG/2 ML SDV IV SCH ×2 (05:33→15:22)
[2019-07-09] MEDS: HEPARIN SOD (PORCINE) 5,000 UNIT/ML 1 ML VIAL SUBCUT SCH ×3 (05:33→21:42)
[2019-07-09] MEDS: PANTOPRAZOLE SODIUM 40 MG TABLET.DR PO SCH (05:33)
[2019-07-09] MEDS: IPRATROPIUM/ALBUTEROL 0.5-2.5 MG/3 ML AMPUL NEB SCH ×3 (08:24→20:58)
[2019-07-09] MEDS: BUDESONIDE NEB 0.5 MG/2 ML AMPUL NEB SCH ×2 (08:24→20:59)
[2019-07-09] MEDS: ACETYLCYSTEINE 20% SOLN 800 MG/4 ML VIAL.NEB NEB SCH ×2 (08:24→20:59)
[2019-07-09] MEDS: INSULIN REG, HUMAN 100 UNIT/ML 3 ML VIAL (PYX) SUBCUT SCH ×4 (08:34→22:05)
[2019-07-09 08:41] LABS: ANION GAP 12 (5-19); BLOOD UREA NITROGEN 37 mg/dL (7-20); CALCIUM 9.7 mg/dL (8.4-10.2); CARBON DIOXIDE 20 mmol/L (22-30); CHLORIDE 108 mmol/L (98-107); GLUCOSE 121 mg/dL (75-110); POTASSIUM 5.3 mmol/L (3.6-5.0)
[2019-07-09] MEDS: DOCUSATE SODIUM 100 MG CAPSULE PO SCH ×2 (09:11→18:28)
[2019-07-09] MEDS: ISOSORBIDE MONONITRATE 60 MG TAB.ER.24H PO SCH (09:11)
[2019-07-09] MEDS: ASPIRIN 81 MG TABLET, CHEWABLE PO SCH (09:11)
[2019-07-09] MEDS: POTASSIUM CHLORIDE 10 MEQ TABLET.ER PO SCH (09:12)
[2019-07-09] MEDS: METOPROLOL SUCCINATE 50 MG TAB.SR.24H PO SCH ×2 (09:12→21:43)
[2019-07-09] MEDS: GUAIFENESIN 600 MG TABLET.SA PO SCH ×2 (09:12→21:43)
[2019-07-09] MEDS: HYDRALAZINE HCL 50 MG TABLET PO SCH (09:12)
[2019-07-09] MEDS: CEFEPIME HCL 2 GM in DEXTROSE 5%-WATER 50 ML IV SCH (09:12)
[2019-07-09] MEDS: FLUTICASONE/UMECLIDIN/VILANTER 100-62.5-25 MCG/DOSE IH SCH (09:20)
[2019-07-09 09:55] LABS: APPEARANCE,URINE CLEAR; BILIRUBIN,URINE NEGATIVE (NEGATIVE); COLOR,URINE YELLOW; GLUCOSE, URINE NEGATIVE (NEGATIVE); KETONES,URINE TRACE mg/dL (NEGATIVE); LEUKOCYTE ESTERASE,URINE NEGATIVE (NEGATIVE); NITRITE,URINE NEGATIVE (NEGATIVE); PROTEIN,URINE 100 mg/dL (NEGATIVE); UROBILINOGEN,URINE NEGATIVE mg/dL (<2.0)
--- NOTE | 2019-07-09 13:43 | PDOC PROGRESS REPORT ---
Subjective Progress Note for:: 07/08/09 Subjective:: LUCIE ANDREWS is a 68 year old male past medical history of CHF, HAILEY, diabetes, hypertension, hyperlipidemia, back abuse who was recently admitted here at [place] for HAILEY, acute CHF, acute respiratory failure, and elevated troponins. Cardiology was consulted and plan was for patient to follow-up with [facility] for possible stress test as outpatient. Presented to ED complaining of acute shortness of breath with exertion and activity, accompanied by subjective fever, chills and productive cough. 07/04/2019. No acute events overnight. Patient still complaining of productive cough, mild respiratory distress, denies any chest pain, nausea, vomiting, diarrhea, constipation or any urinary symptoms. 07/04/2019. No acute events overnight. Patient still complaining of productive cough, mild respiratory distress, denies any chest pain, nausea, vomiting, diarrhea, constipation or any urinary symptoms. 07/05/2018. Patient was noted to be very stressed, diaphoretic and requiring more oxygen and was transferred to IMCU. 07/06/2018. Significant improvement of respiratory symptoms. Patient is comfortably resting in bed no apparent distress on 2 L of nasal cannula with SPO2 of 97%. Denies any chest pain, nausea, vomiting, diarrhea, constipation or any urinary symptoms. 07/07/2019. Complaining of worsening shortness of breath compared to yesterday, denies any chest pain, nausea, vomiting, diarrhea, constipation or any urinary symptoms. 07/08/2019. No acute events overnight. Denies any fever, chills, nausea, vomiting, diarrhea, constipation or any urinary symptoms. Patient was going to be discharged home but unfortunately his kidney function worsening and discharge will consult. Reason For Visit: RIGHT LUNG HCA PNEUMONIA, ACUTE RESPIRATORY Physical Exam Vital Signs: Temp Pulse Resp BP Pulse Ox 98.1 F 98 17 94/67 L 100 07/09/19 11:04 07/09/19 11:04 07/09/19 11:04 07/09/19 11:04 07/09/19 11:04 Pulse Oximeter Continuous Start: 07/03/19 21:58 Freq: RTQ4 Status: Complete Protocol: Document 07/09/19 08:24 [facility] (Rec: 07/09/19 11:31 [facility] [id number]) Pulse Oximetry Assessment Oxygen Saturation (92-100) 98 Oxygen Delivery Method Nasal Cannula Fraction of Inspired Oxygen (FIO2) 21 Equipment Usage Equipment Standby Continuous SpO2 Machine # [id number] Intake & Output 07/08/19 07/09/19 07/10/19 06:59 06:59 06:59 Intake Total 1060 960 50 Output Total 1370 800 Balance -310 160 50 Weight 96.5 kg 96.1 kg General appearance: PRESENT: no acute distress, well-developed, well-nourished Head exam: PRESENT: atraumatic, normocephalic Respiratory exam: PRESENT: clear to auscultation tameka. ABSENT: rales, rhonchi, wheezes GI/Abdominal exam: PRESENT: normal bowel sounds, soft. ABSENT: distended, guarding, mass, organolmegaly, rebound, tenderness Extremities exam: PRESENT: full ROM. ABSENT: calf tenderness, clubbing, pedal edema Neurological exam: PRESENT: alert, awake, oriented to person, oriented to place, oriented to time, oriented to situation, CN II-XII grossly intact. ABSENT: motor sensory deficit Results Laboratory Results: 07/08/19 05:02 07/09/19 07:50 07/08/19 07/09/19 07/09/19 19:41 07:50 09:15 Sodium 139.2 140.1 Potassium 4.5 5.3 H Chloride 106 108 H Carbon Dioxide 19 L 20 L Anion Gap 14 12 BUN 29 H 37 H Creatinine 1.86 H 1.94 H Est GFR ( Amer) 44 L 42 L Glucose 153 H 121 H Calcium 9.7 9.7 Urine Color YELLOW Urine Appearance CLEAR Urine pH 5.0 Ur Specific [place] 1.020 Urine Protein 100 H Urine Glucose (UA) NEGATIVE Urine Ketones TRACE H Urine Blood NEGATIVE Urine Nitrite NEGATIVE Ur Leukocyte Esterase NEGATIVE Urine WBC (Auto) 1 07/03/19 21:30 Blood Blood Culture - Final NO GROWTH IN 5 DAYS 07/03/19 19:35 Blood Blood Culture - Final NO GROWTH IN 5 DAYS 07/03/19 07/03/19 07/04/19 19:14 19:14 12:37 Creatine Kinase 120 CK-MB (CK-2) 1.78 Troponin I 0.071 0.079 NT-Pro-B Natriuret Pep 2410 H 07/04/19 07/05/19 07/05/19 18:30 01:50 08:10 Creatine Kinase CK-MB (CK-2) Troponin I 0.077 0.075 0.074 NT-Pro-B Natriuret Pep 07/05/19 15:30 Creatine Kinase CK-MB (CK-2) Troponin I 0.079 NT-Pro-B Natriuret Pep Impressions: Chest X-Ray 07/03/19 18:08 IMPRESSION: In the appropriate clinical setting, increased right lung base airspace opacities is consistent with a right middle +/- right lower lobe pneumonia. Chest/Abdomen CTA 07/03/19 20:30 IMPRESSION: Suboptimal contrast bolus. No large or central pulmonary embolus. Cardiomegaly. Small bilateral pleural effusions with adjacent consolidation TECHNICAL DOCUMENTATION: Quality ID # [id number]: Final reports with documentation of one or more dose reduction techniques (e.g., Automated exposure control, adjustment of the mA and/or kV according to patient size, use of iterative reconstruction technique) copyright 2011 [employer]- All Rights Reserved Assessment and Plan - Diagnosis (1) Acute kidney injury superimposed on CKD Is this a current diagnosis for this admission?: Yes Plan: Prerenal. Worsening of renal function since admission. Nonoliguric. No uremic symptoms. Likely worsened due to aggressive diuresis for underlying CHF exacerbation. Hold IV Lasix. Avoid nephrotoxic meds. Will consult nephrology. (2) HCAP (healthcare-associated pneumonia) Is this a current diagnosis for this admission?: Yes Plan: Likely due to recent hospitalization for acute CHF, HAILEY, acute respiratory failure. Day 6 IV antibiotics. Day 6 IV cefepime. Day 6 IV levofloxacin. Received 1 dose of Zosyn in ED. Received 1 dose of azithromycin in ED. Cultures no growth so far. Continue broad-spectrum empiric IV antibiotics. Follow culture. (3) CHF (congestive heart failure) Qualifiers: Heart failure type: systolic Heart failure chronicity: unspecified Qualified Code(s): I50.20 - Unspecified systolic (congestive) heart failure Is this a current diagnosis for this admission?: Yes Plan: Acute systolic heart failure. proBNP 2410. Denies any history of CAD. History of hypertension. Likely exacerbated due to underlying pneumonia. 06/22/2019. 2D echo LVEF 40%. Left ventricular hypertrophy. Stage I/IV mild diastolic dysfunction. Cardiac diet, fluid restriction, strict in and out, IV diuretics, BARB, beta- blockers, PRN morphine. Patient has been having persistent elevated troponins. Ranging from 0.074- 0.079. With nonspecific T wave abnormalities. Unchanged from previous admission. I have consulted Dr. Harrell discussed this case Dr. Harrell recommends medical management this point with plan to have a outpatient stress test after discharge. Cardiology consulted. Recommendations noted. Please refer to note. (4) Acute respiratory failure with hypoxia Is this a current diagnosis for this admission?: Yes Plan: Moderate improvement. SPO2 WNL on RA. Due to combination of healthcare/pneumonia and CHF exacerbation and COPD exacerbation. Continue continue BiPAP, IV steroids, empiric IV antibiotics, flutter valve, incentive spirometry, ICS, LABA, LABA. (5) Essential hypertension Is this a current diagnosis for this admission?: Yes Plan: Normotensive. Euvolemic. Home meds are hydralazine, Imdur, Lasix, metoprolol and losartan. Restart home meds. Monitor vitals. Adjust meds as needed. Outpatient PCP follow-up. (6) Diabetes mellitus type 2 in nonobese Is this a current diagnosis for this admission?: Yes Plan: Controlled. Hemoglobin A1c WNL. Takes metformin at home. Diabetic diet. Sliding scale insulin. Hypoglycemia protocol. Accu-Chek. Restart home meds upon discharge. Outpatient PCP follow-up. (7) Tobacco use disorder, moderate, dependence Is this a current diagnosis for this admission?: Yes Plan: Counseled on quitting. NicoDerm patch will be provided. (8) Elevated troponin Is this a current diagnosis for this admission?: Yes Plan: Denies any chest pain. High risk for CAD. Ranging from 0.074-0.079. With nonspecific T wave abnormalities. Unchanged from previous admission. This is likely due to acute CHF exacerbation complicated by HCAP. In previous hospitalization Dr Murry from cardiology was consulted. Plan was to have patient do stress test as outpatient. Continue antiplatelets, BARB, beta-blockers. Allergic to statins. Lipid panel from previous admission WNL. I have consulted Dr. Harrell discussed this case Dr. Harrell recommends medical management this point with plan to have a outpatient stress test after discharge. Cardiology consulted. Please refer to note. Recommendations noted.
--- NOTE | 2019-07-09 14:17 | PDOC PROGRESS REPORT ---
Subjective Progress Note for:: 07/09/19 Subjective:: LUCIE ANDREWS is a 68 year old male past medical history of CHF, HAILEY, diabetes, hypertension, hyperlipidemia, back abuse who was recently admitted here at [place] for HAILEY, acute CHF, acute respiratory failure, and elevated troponins. Cardiology was consulted and plan was for patient to follow-up with [facility] for possible stress test as outpatient. Presented to ED complaining of acute shortness of breath with exertion and activity, accompanied by subjective fever, chills and productive cough. 07/04/2019. No acute events overnight. Patient still complaining of productive cough, mild respiratory distress, denies any chest pain, nausea, vomiting, diarrhea, constipation or any urinary symptoms. 07/04/2019. No acute events overnight. Patient still complaining of productive cough, mild respiratory distress, denies any chest pain, nausea, vomiting, diarrhea, constipation or any urinary symptoms. 07/05/2018. Patient was noted to be very stressed, diaphoretic and requiring more oxygen and was transferred to IMCU. 07/06/2018. Significant improvement of respiratory symptoms. Patient is comfortably resting in bed no apparent distress on 2 L of nasal cannula with SPO2 of 97%. Denies any chest pain, nausea, vomiting, diarrhea, constipation or any urinary symptoms. 07/07/2019. Complaining of worsening shortness of breath compared to yesterday, denies any chest pain, nausea, vomiting, diarrhea, constipation or any urinary symptoms. 07/08/2019. No acute events overnight. Denies any fever, chills, nausea, vomiting, diarrhea, constipation or any urinary symptoms. Patient was going to be discharged home but unfortunately his kidney function worsening and discharge will consult. 07/09/2019. No acute events overnight. Denies fever, chills, nausea, vomiting, diarrhea, constipation or any urinary symptoms. Reason For Visit: RIGHT LUNG HCA PNEUMONIA, ACUTE RESPIRATORY Physical Exam Vital Signs: Temp Pulse Resp BP Pulse Ox 98.1 F 93 16 94/67 L 98 07/09/19 11:04 07/09/19 14:03 07/09/19 14:03 07/09/19 11:04 07/09/19 14:03 Pulse Oximeter Continuous Start: 07/03/19 21:58 Freq: RTQ4 Status: Complete Protocol: Document 07/09/19 08:24 [facility] (Rec: 07/09/19 11:31 [facility] [id number]) Pulse Oximetry Assessment Oxygen Saturation (92-100) 98 Oxygen Delivery Method Nasal Cannula Fraction of Inspired Oxygen (FIO2) 21 Equipment Usage Equipment Standby Continuous SpO2 Machine # [id number] Intake & Output 07/08/19 07/09/19 07/10/19 06:59 06:59 06:59 Intake Total 1060 960 50 Output Total 1370 800 Balance -310 160 50 Weight 96.5 kg 96.1 kg General appearance: PRESENT: no acute distress, well-developed, well-nourished Head exam: PRESENT: atraumatic, normocephalic Respiratory exam: PRESENT: clear to auscultation tameka. ABSENT: rales, rhonchi, w heezes Cardiovascular exam: PRESENT: RRR. ABSENT: diastolic murmur, rubs, systolic murmur GI/Abdominal exam: PRESENT: normal bowel sounds, soft. ABSENT: distended, guarding, mass, organolmegaly, rebound, tenderness Neurological exam: PRESENT: alert, awake, oriented to person, oriented to place, oriented to time, oriented to situation, CN II-XII grossly intact. ABSENT: motor sensory deficit Results Laboratory Results: 07/08/19 05:02 07/09/19 07:50 07/08/19 07/09/19 07/09/19 19:41 07:50 09:15 Sodium 139.2 140.1 Potassium 4.5 5.3 H Chloride 106 108 H Carbon Dioxide 19 L 20 L Anion Gap 14 12 BUN 29 H 37 H Creatinine 1.86 H 1.94 H Est GFR ( Amer) 44 L 42 L Glucose 153 H 121 H Calcium 9.7 9.7 Urine Color YELLOW Urine Appearance CLEAR Urine pH 5.0 Ur Specific [place] 1.020 Urine Protein 100 H Urine Glucose (UA) NEGATIVE Urine Ketones TRACE H Urine Blood NEGATIVE Urine Nitrite NEGATIVE Ur Leukocyte Esterase NEGATIVE Urine WBC (Auto) 1 07/03/19 21:30 Blood Blood Culture - Final NO GROWTH IN 5 DAYS 07/03/19 19:35 Blood Blood Culture - Final NO GROWTH IN 5 DAYS 07/03/19 07/03/19 07/04/19 19:14 19:14 12:37 Creatine Kinase 120 CK-MB (CK-2) 1.78 Troponin I 0.071 0.079 NT-Pro-B Natriuret Pep 2410 H 07/04/19 07/05/19 07/05/19 18:30 01:50 08:10 Creatine Kinase CK-MB (CK-2) Troponin I 0.077 0.075 0.074 NT-Pro-B Natriuret Pep 07/05/19 15:30 Creatine Kinase CK-MB (CK-2) Troponin I 0.079 NT-Pro-B Natriuret Pep Impressions: Chest X-Ray 07/03/19 18:08 IMPRESSION: In the appropriate clinical setting, increased right lung base airspace opacities is consistent with a right middle +/- right lower lobe pneumonia. Chest/Abdomen CTA 07/03/19 20:30 IMPRESSION: Suboptimal contrast bolus. No large or central pulmonary embolus. Cardiomegaly. Small bilateral pleural effusions with adjacent consolidation TECHNICAL DOCUMENTATION: Quality ID # [id number]: Final reports with documentation of one or more dose reduction techniques (e.g., Automated exposure control, adjustment of the mA and/or kV according to patient size, use of iterative reconstruction technique) copyright 2011 [employer]- All Rights Reserved Assessment and Plan - Diagnosis (1) Acute kidney injury superimposed on CKD Is this a current diagnosis for this admission?: Yes Plan: Prerenal. Worsening of renal function since admission. Nonoliguric. No uremic symptoms. Likely worsened due to aggressive diuresis for underlying CHF exacerbation. Hold IV Lasix. Avoid nephrotoxic meds. Nephrology consulted. As per my discussion with nephrology recommendation is to hold diuretics, cautious volume resuscitation guided by volume status. Renal artery ultrasound, pre-and post void bladder scan. (2) HCAP (healthcare-associated pneumonia) Is this a current diagnosis for this admission?: Yes Plan: Resolved. WBC WNL. Afebrile. SPO2 WNL on RA. Likely due to recent hospitalization for acute CHF, HAILEY, acute respiratory failure. Day 1 out of 3 p.o. levofloxacin. Received 6 days of IV antibiotics. Received 6 days of IV cefepime. Received 6 days of IV levofloxacin. Received 1 dose of Zosyn in ED. Received 1 dose of azithromycin in ED. Cultures no growth so far. Continue levofloxacin for another 3 days. DC IV antibiotics. Follow culture. (3) CHF (congestive heart failure) Qualifiers: Heart failure type: systolic Heart failure chronicity: unspecified Qualified Code(s): I50.20 - Unspecified systolic (congestive) heart failure Is this a current diagnosis for this admission?: Yes Plan: Euvolemic. Normotensive. Denies any anginal symptoms. Acute systolic heart failure. Presented with proBNP 2410. History of hypertension. Likely exacerbated due to underlying pneumonia. 06/22/2019. 2D echo LVEF 40%. Left ventricular hypertrophy. Stage I/IV mild diastolic dysfunction. Continue cardiac diet, BARB, beta-blockers, PRN morphine. Hold IV diuretics due to worsening renal function. Resume once renal function stabilizes. Patient has been having persistent elevated troponins. Ranging from 0.074- 0.079. With nonspecific T wave abnormalities. Unchanged from previous admission. I have consulted Dr. Harrell discussed this case Dr. Harrell recommends medical management this point with plan to have a outpatient stress test after discharge. Cardiology consulted. Recommendations noted. Please refer to note. (4) Acute respiratory failure with hypoxia Is this a current diagnosis for this admission?: Yes Plan: Resolved. SPO2 WNL on RA. Due to combination of healthcare/pneumonia and CHF exacerbation and COPD exacerbation. Continue continue p.o steroids, flutter valve, incentive spirometry, ICS, LABA, LABA. (5) Essential hypertension Is this a current diagnosis for this admission?: Yes Plan: Normotensive. Euvolemic. Home meds are hydralazine, Imdur, Lasix, metoprolol and losartan. Restart home meds. Monitor vitals. Adjust meds as needed. Outpatient PCP follow-up. (6) Diabetes mellitus type 2 in nonobese Is this a current diagnosis for this admission?: Yes Plan: Controlled. Hemoglobin A1c WNL. Takes metformin at home. Diabetic diet. Sliding scale insulin. Hypoglycemia protocol. Accu-Chek. Restart home meds upon discharge. Outpatient PCP follow-up. (7) Tobacco use disorder, moderate, dependence Is this a current diagnosis for this admission?: Yes Plan: Counseled on quitting. NicoDerm patch will be provided. (8) Elevated troponin Is this a current diagnosis for this admission?: Yes Plan: Denies any chest pain. High risk for CAD. Ranging from 0.074-0.079. With nonspecific T wave abnormalities. Unchanged from previous admission. This is likely due to acute CHF exacerbation complicated by HCAP. In previous hospitalization Dr Murry from cardiology was consulted. Plan was to have patient do stress test as outpatient. Continue antiplatelets, BARB, beta-blockers. Allergic to statins. Lipid panel from previous admission WNL. I have consulted Dr. Harrell discussed this case Dr. Harrell recommends medical management this point with plan to have a outpatient stress test after discharge. Cardiology consulted. Please refer to note. Recommendations noted.
[2019-07-09] MEDS ORDERED: ACETAMINOPHEN 325 MG TABLET PO PRN (14:33)
--- NOTE | 2019-07-09 16:10 | RADIOLOGY REPORT (SQ) ---
EXAM DESCRIPTION: U/S LTD DUPLEX ART/IVAN FLOW COMPLETED DATE/TIME: 07/09/2019 3:51 pm REASON FOR STUDY: Rule r/o RA stenosis. Pre-post void bladder scan COMPARISON: None. TECHNIQUE: Realtime and static grayscale images acquired. Selected color Doppler, velocities and spe ctral images recorded. LIMITATIONS: None. FINDINGS: RIGHT KIDNEY: RENAL ARTERY VELOCITIES: 31 cm/sec. Segmental artery velocity 59 cm/sec. RENAL VEIN: Color doppler flow present, patent. VELOCITY RATIO: 0.3. Normal waveforms. KIDNEY: Normal size. No significant pathology. LEFT KIDNEY: RENAL ARTERY VELOCITIES: 60 cm/sec. Segmental artery velocity 67 cm/sec. RENAL VEIN: Color doppler flow present, patent. VELOCITY RATIO: 0.7. Normal waveforms. KIDNEY: Normal size. No significant pathology. BLADDER: Not visualized. OTHER: No other significant finding. IMPRESSION: NO DOPPLER EVIDENCE OF HEMODYNAMICALLY SIGNIFICANT RENAL ARTERY STENOSIS. COMMENT: NORMAL RENAL ARTERY/AORTA VELOCITY RATIO IS LESS THAN OR EQUAL TO 3.5. TECHNICAL DOCUMENTATION: JOB ID: [id number] [employer]- All Rights Reserved Reading location - IP/workstation name: [email or web address]
--- NOTE | 2019-07-09 16:20 | RADIOLOGY REPORT (SQ) ---
EXAM DESCRIPTION: U/S NON-OB PELVIS LTD W/O DOP COMPLETED DATE/TIME: 07/09/2019 3:51 pm REASON FOR STUDY: eval urinary retention COMPARISON: None. TECHNIQUE: Pre and post void bladder imaging. LIMITATIONS: None. FINDINGS: PREVOID BLADDER VOLUME: 86 ml. POST VOID BLADDER VOLUME: 8 ml. OTHER: No other significant finding. IMPRESSION: NO SONOGRAPHIC ABNORMALITY IN THE BLADDER. BLADDER VOLUMES ABOVE. TECHNICAL DOCUMENTATION: JOB ID: [id number] [employer]- All Rights Reserved Reading location - IP/workstation name: [email or web address]
--- NOTE | 2019-07-09 16:27 | PDOC CONSULTATION ---
Consultation Consult Date: 07/09/19 Provider Consulted: Jose D CANTU Consult reason:: mike History of Present Illness Admission Date/PCP: 07/03/19 21:27 ALEXANDER VELASQUEZ MD History of Present Illness: LUCIE ANDREWS is a 68 year old male History of diabetes mellitus, hypertension, CHF, COPD was admitted with history of progressive shortness of breath along with coughing. He has been diagnosed to have a combination of acute exacerbation of COPD/congestive heart failure. He responded to appropriate management but prior to possible discharge he was found to have rising creatinine which is gone up to 1.9 as of today. His admission creatinine was 1.3 but prior to his other recent admission it was below 1. His diuretics has been put on hold. He generally feels good and her whole lot better than when he came in. He denies any complaints of any chest pain or shortness of breath on exertion. No complaints of any abdominal pains. Admits to symptoms indicative of prostatic hypertrophy. Past Medical History Cardiac Medical History: Reports: Hyperlipidemia, Hypertension-primary Denies: Atrial Fibrillation, Coronary Artery Disease, Myocardial Infarction Pulmonary Medical History: Reports: Respiratory Failure Denies: Asthma, Bronchitis, Chronic Obstructive Pulmonary Disease (COPD), Pneumonia EENT Medical History: Denies: Cataracts, Ears - Hearing aids Neurological Medical History: Denies: Hemorrhagic CVA, Ischemic CVA, Seizures Endocrine Medical History: Reports: Diabetes Mellitus Type 2 Denies: Diabetes Mellitus Type 1, Hyperthyroidism, Hypothyroidism Complications of Diabetes: Reports: None Renal/ Medical History: Reports: Other - Benign prostatic hyperplasia Denies: Nephrolithiasis Malignancy Medical History: Reports: None GI Medical History: Denies: Cirrhosis, Crohn's Disease, Hepatitis, Ulcerative Colitis Musculoskeltal Medical History: Reports: Arthritis Denies: Fibromyalgia, Gout Skin Medical History: Denies: Eczema, Psoriasis Psychiatric Medical History: Reports: Tobacco Dependency Denies: Alcohol Dependency, Depression, Substance Abuse Traumatic Medical History: Reports: None Infectious Medical History: Reports: None Past Surgical History Past Surgical History: Reports: Orthopedic Surgery - Neck Fusion X 2, rotator cuff surgery, Other - Segmental colectomy for colon cancer Denies: Pacemaker Social History Lives with: Spouse/Significant other Smoking Status: Current Every Day Smoker Electronic Cigarette use?: No Number of Years Smokin Last Time Smoked: 06/29/19 Frequency of Alcohol Use: None Hx Recreational Drug Use: No Drugs: None Hx Prescription Drug Abuse: No - Advance Directive Resuscitation Status: Full Code Family History Parental Family History Reviewed: Yes - Negative for ESRD Children Family History Reviewed: No Sibling(s) Family History Reviewed.: No Medication/Allergy Home Medications: Metformin HCl [Glucophage 500 mg Tablet] 500 mg PO BID 10/03/11 Omeprazole [Prilosec 20 mg Capsule] 20 mg PO DAILY 10/03/11 Terazosin HCl 20 mg PO DAILY 10/03/11 Lovastatin [Altoprev] 40 mg PO QHS 06/22/19 Meloxicam [Mobic] 15 mg PO DAILYP PRN 06/22/19 Hydralazine HCl [Apresoline 25 mg Tablet] 25 mg PO Q6 #120 tablet 06/25/19 Isosorbide Dinitrate [Isordil Titradose 20 mg Tablet] 20 mg PO Q6 #120 tablet 06/25/19 Albuterol Sulfate [Albuterol Sulfate Hfa] 18 gm IH Q6 30 Days #1 hfa.aer.ad Aspirin [Daya Chewable Aspirin] 81 mg PO DAILY 30 Days #30 tab.chew 07/08/19 Fluticasone/Salmeterol [Advair 500-50 Diskus 14 Dose/Diskus] 1 inh IH Q12H 30 Days #1 inhaler 07/08/19 Furosemide [Lasix 40 mg Tablet] 40 mg PO BID 30 Days #30 tablet 07/08/19 Levofloxacin [Levaquin] 750 mg PO DAILY 3 Days #3 tablet 07/08/19 Metoprolol Succinate [Toprol XL 100 mg Tablet] 100 mg PO DAILY 30 Days #30 tab.sr.24h 07/08/19 Prednisone 50 mg PO DAILY 5 Days #5 tablet 07/08/19 Tiotropium [place] [Spiriva Respimat] 4 gm IH DAILY 30 Days #1 mist.inhal 07/08/19 Allergies/Adverse Reactions: atorvastatin [From Lipitor] Allergy (Severe, Verified 06/21/19 15:50) Swelling of Throat lisinopril Allergy (Severe, Verified 06/21/19 15:50) Swelling of Throat latex [Latex] Allergy (Intermediate, Verified 06/21/19 15:50) rash Review of Systems Constitutional: ABSENT: anorexia, chills, fever(s), headache(s), night sweats, weakness Nose, Mouth, and Throat: ABSENT: sore throat Cardiovascular: ABSENT: chest pain, dyspnea on exertion, edema, orthropnea, palpitations Respiratory: ABSENT: dyspnea, hemoptysis Gastrointestinal: ABSENT: abdominal pain, coffee ground emesis, diarrhea, dysphagia, heartburn, hematemesis, nausea, vomiting Genitourinary: ABSENT: dysuria, hematuria Musculoskeletal: ABSENT: deformity, joint swelling Integumentary: ABSENT: lesions, rash Neurological: ABSENT: abnormal movements, abnormal speech, confusion, focal weakness, frequent falls, lack of coordination, memory loss Hematologic/Lymphatic: ABSENT: easy bruising, lymphadenopathy Physical Exam Vital Signs: Temp Pulse Resp BP Pulse Ox 98.1 F 98 17 94/67 L 100 07/09/19 11:04 07/09/19 11:04 07/09/19 11:04 07/09/19 11:04 07/09/19 11:04 Pulse Oximeter Continuous Start: 07/03/19 21:58 Freq: RTQ4 Status: Complete Protocol: Document 07/09/19 08:24 [facility] (Rec: 07/09/19 11:31 [facility] [id number]) Pulse Oximetry Assessment Oxygen Saturation (92-100) 98 Oxygen Delivery Method Nasal Cannula Fraction of Inspired Oxygen (FIO2) 21 Equipment Usage Equipment Standby Continuous SpO2 Machine # [id number] Intake & Output 07/08/19 07/09/19 07/10/19 06:59 06:59 06:59 Intake Total 1060 960 50 Output Total 1370 800 Balance -310 160 50 Weight 96.5 kg 96.1 kg General appearance: PRESENT: no acute distress Eye exam: PRESENT: EOMI, PERRLA. ABSENT: scleral icterus Ear exam: PRESENT: normal external ear exam Mouth exam: ABSENT: moist Neck exam: ABSENT: lymphadenopathy, meningismus, tenderness, thyromegaly, t kati deviation Respiratory exam: PRESENT: clear to auscultation [place], decreased breath sounds. ABSENT: crackles Cardiovascular exam: PRESENT: +S1, +S2, systolic murmur GI/Abdominal exam: PRESENT: normal bowel sounds, soft. ABSENT: organomegaly, tenderness Extremities exam: ABSENT: pedal edema Neurological exam: PRESENT: alert, awake, oriented to person, oriented to place Psychiatric exam: PRESENT: appropriate affect Skin exam: ABSENT: cyanosis, erythema, normal color, rash Results Laboratory Results: 07/08/19 05:02 07/09/19 07:50 07/08/19 07/09/19 07/09/19 19:41 07:50 09:15 Sodium 139.2 140.1 Potassium 4.5 5.3 H Chloride 106 108 H Carbon Dioxide 19 L 20 L Anion Gap 14 12 BUN 29 H 37 H Creatinine 1.86 H 1.94 H Est GFR ( Amer) 44 L 42 L Glucose 153 H 121 H Calcium 9.7 9.7 Urine Color YELLOW Urine Appearance CLEAR Urine pH 5.0 Ur Specific [place] 1.020 Urine Protein 100 H Urine Glucose (UA) NEGATIVE Urine Ketones TRACE H Urine Blood NEGATIVE Urine Nitrite NEGATIVE Ur Leukocyte Esterase NEGATIVE Urine WBC (Auto) 1 07/03/19 21:30 Blood Blood Culture - Final NO GROWTH IN 5 DAYS 07/03/19 19:35 Blood Blood Culture - Final NO GROWTH IN 5 DAYS 07/03/19 07/03/19 07/04/19 19:14 19:14 12:37 Creatine Kinase 120 CK-MB (CK-2) 1.78 Troponin I 0.071 0.079 NT-Pro-B Natriuret Pep 2410 H 07/04/19 07/05/19 07/05/19 18:30 01:50 08:10 Creatine Kinase CK-MB (CK-2) Troponin I 0.077 0.075 0.074 NT-Pro-B Natriuret Pep 07/05/19 15:30 Creatine Kinase CK-MB (CK-2) Troponin I 0.079 NT-Pro-B Natriuret Pep Impressions: Chest X-Ray 07/03/19 18:08 IMPRESSION: In the appropriate clinical setting, increased right lung base airspace opacities is consistent with a right middle +/- right lower lobe pneumonia. Chest/Abdomen CTA 07/03/19 20:30 IMPRESSION: Suboptimal contrast bolus. No large or central pulmonary embolus. Cardiomegaly. Small bilateral pleural effusions with adjacent consolidation TECHNICAL DOCUMENTATION: Quality ID # 436: Final reports with documentation of one or more dose reduction techniques (e.g., Automated exposure control, adjustment of the mA and/or kV according to patient size, use of iterative reconstruction technique) copyright 2011 [employer] All Rights Reserved Assessment & Plan - Diagnosis (2) Acute kidney injury superimposed on CKD Is this a current diagnosis for this admission?: Yes Plan: Patient is clinically dry. He has possibly been over diuresed. Says that he is also got active symptoms of prostatic hypertrophy. Agree with discontinuation of the diuretics. Start IV fluids. Follow-up with renal ultrasound with pre- and post void residual to make sure that he has not any signs of obstructive uropathy. He will need to follow-up with urologist post discharge. (3) Benign prostatic hyperplasia Qualifiers: Lower urinary tract symptom presence: unspecified whether lower urinary tract symptoms present Qualified Code(s): N40.0 - Benign prostatic hyperplasia without lower urinary tract symptoms Is this a current diagnosis for this admission?: Yes Plan: Symptoms to indicate that. We will start him on Flomax for now. Will check PSA as well in the morning. Follow-up with urologist post discharge. (4) CHF (congestive heart failure) Qualifiers: Heart failure type: systolic Heart failure chronicity: unspecified Qualified Code(s): I50.20 - Unspecified systolic (congestive) heart failure Is this a current diagnosis for this admission?: Yes Plan: Improved. As mentioned earlier patient looks like he has been over diuresed. See measures instituted as mentioned earlier. (5) COPD exacerbation Is this a current diagnosis for this admission?: Yes Plan: Resolved. (6) Diabetes mellitus type 2 in nonobese Is this a current diagnosis for this admission?: Yes Plan: Advised tight diabetic control. (7) Essential hypertension Is this a current diagnosis for this admission?: Yes Plan: Controlled to low. Cut back on Coreg.
[2019-07-09] MEDS ORDERED: TAMSULOSIN HCL 0.4 MG CAP.SR.24H PO SCH (18:00)
--- NOTE | 2019-07-09 19:16 | Progress Note ---
Provider Note Provider Note: CARDIOLOGY PROGRESS NOTE by Dr. Concha Harrell on 07/09/19. SUBJECTIVE: The patient denies any chest pain or discomfort. There is no cough or sputum production. There is no PND orthopnea. The patient's versus discharge yesterday but the discharge was canceled due to the patient's creatinine rising up to 1.63. This is most likely secondary to overdiuresis diuresis. There is no pedal edema. The patient appears to be slightly volume depleted. He has no anginal symptoms. There is no arrhythmia seen on the monitor. Nephrology is on board nephrology consult appreciated. PHYSICAL EXAMINATION: The patient is well-built and well-nourished. In no acute distress. Selected Entries 07/09/19 15:43 Temperature 97.5 F Temperature Oral Source Pulse Rate 80 Respiratory 17 Rate Blood Pressure 112/75 Blood Pressure 87 Mean BP Location Left Arm BP Position Supine O2 Sat by Pulse 98 Oximetry Oxygen Delivery Room Air Method HEAD: Is atraumatic normocephalic. EYES: Pupils are equal round regular reactive to light and accommodation. Extraocular movements are normal. There is no conjunctival pallor. There is no scleral icterus. Ears: Tympanic membranes are intact. External auditory canals are clear. NOSE: There is no deviated nasal septum. There is no inflammation nasal mucous membrane. MOUTH: Mucous membranes of the mouth are moist. Tongue is moist. There is no ulcers. There is no bleeding from the gums. THROAT: There is no redness of the oropharynx. There is no exudates. SKIN: There is no skin lesions or skin rashes. There is no petechia or ecchymosis. NECK: Supple. There is no JVD. Carotids are equal there is no bruit there is no lymphadenopathy. NECK: Supple. At present there is no JVD. Carotids are equal there is no bruit. There is no lymphadenopathy. There is no goiter. There is no accessory muscle respiration use. Trachea central. LUNGS: There is diminished air entry and prolonged expiration. There is no rhonchi rales or wheezing. On palpation there is no chest wall tenderness. There is hyperresonance. There is no rales of CHF. HEART: S1-S2 is heard. There is no S3 gallop. There is no S4 gallop. There is murmur of mitral regurgitation present. There is no rub. ABDOMEN: Is soft. There is no hepatosplenomegaly. Bowel sounds are well heard. EXTREMITIES: Femorals are well felt. There is no femoral bruits. Leg pulses are well felt. There is no pedal edema. There is no DVT or cellulitis. There is no calf tenderness. There is no cyanosis or clubbing. MELT SUPERINTENDANT: The patient is conscious awake alert oriented x3 no focal deficits. PSYCHIATRIC: Patient judgment site are intact. His affect is normal. Labs- All tests 24 hr 07/09/19 07/09/19 07/09/19 06:59 07:50 09:15 Sodium 140.1 Potassium 5.3 H Chloride 108 H Carbon Dioxide 20 L Anion Gap 12 BUN 37 H Creatinine 1.94 H Est GFR ( Amer) 42 L Est GFR (MDRD) Non-Af 34 L Glucose 121 H POC Glucose 119 H Calcium 9.7 Urine Color YELLOW Urine Appearance CLEAR Urine pH 5.0 Ur Specific [place] 1.020 Urine Protein 100 H Urine Glucose (UA) NEGATIVE Urine Ketones TRACE H Urine Blood NEGATIVE Urine Nitrite NEGATIVE Urine Bilirubin NEGATIVE Urine Urobilinogen NEGATIVE Ur Leukocyte Esterase NEGATIVE Urine WBC (Auto) 1 U Hyaline Cast (Auto) 1 Urine Mucus (Auto) RARE Urine Ascorbic Acid NEGATIVE 07/09/19 07/09/19 07/09/19 11:05 15:33 21:16 Sodium Potassium Chloride Carbon Dioxide Anion Gap BUN Creatinine Est GFR ( Amer) Est GFR (MDRD) Non-Af Glucose POC Glucose 240 H 97 110 Calcium Urine Color Urine Appearance Urine pH Ur Specific [place] Urine Protein Urine Glucose (UA) Urine Ketones Urine Blood Urine Nitrite Urine Bilirubin Urine Urobilinogen Ur Leukocyte Esterase Urine WBC (Auto) U Hyaline Cast (Auto) Urine Mucus (Auto) Urine Ascorbic Acid Chest X-Ray 07/03/19 18:08 IMPRESSION: In the appropriate clinical setting, increased right lung base airspace opacities is consistent with a right middle +/- right lower lobe pneumonia. Chest/Abdomen CTA 07/03/19 20:30 IMPRESSION: Suboptimal contrast bolus. No large or central pulmonary embolus. Cardiomegaly. Small bilateral pleural effusions with adjacent consolidation TECHNICAL DOCUMENTATION: Quality ID # [id number]: Final reports with documentation of one or more dose reduction techniques (e.g., Automated exposure control, adjustment of the mA and/or kV according to patient size, use of iterative reconstruction technique) copyright 2010 [employer]- All Rights Reserved Pelvis Ultrasound 07/09/19 00:00 IMPRESSION: NO SONOGRAPHIC ABNORMALITY IN THE BLADDER. BLADDER VOLUMES ABOVE. Vascular Ultrasound 07/09/19 00:00 IMPRESSION: NO DOPPLER EVIDENCE OF HEMODYNAMICALLY SIGNIFICANT RENAL ARTERY STENOSIS. IMPRESSION/RECOMMENDATION: 1. Acute renal failure most likely secondary to overdiuresis. Will hold diuretics. Nephrology on board. Studies are negative for any renal artery stenosis. The plan is to hold diuretics. And gently hydrate the patient. 2. Acute on chronic systolic heart failure: Secondary to cardiomyopathy. Stable but over diuresed. Later as an outpatient would require the patient to have a IV Lexiscan Cardiolite stress test. 3. Right middle lobe and right lower lobe pneumonia: Continue antibiotics and respiratory treatments and oxygen. This seems to resolve. 3. COPD with acute exacerbation: Continue bronchodilators and steroids. 4. Cardiomyopathy with moderately reduced LV ejection fraction. Later once the patient's lung infection and COPD exacerbation and heart failure are controlled, then would recommend IV Lexiscan Cardiolite stress test. 5. Hypertension: Blood pressure well controlled 6. History of tobacco abuse. Patient recently quit smoking. Patient counseled to continue to refrain from smoking Medications reviewed. Medication regimen and management plan discussed with attending physician. Medical decision making is of moderate complexity. Cardiac status is stable. The patient is being seen by flight radio officer. Will sign off the case and follow the patient as an outpatient. Discussed this with the attending provider on the case. 40 minutes spent on this patient with more than 50% of time spent in direct patient care. Will follow as an outpatient.
[2019-07-09] MEDS: HYDRALAZINE HCL 25 MG TABLET PO SCH (21:43)
[2019-07-09] MEDS: DOXAZOSIN MESYLATE 1 MG TABLET PO SCH (21:43)
[2019-07-09] MEDS ORDERED: LEVOFLOXACIN 250 MG TABLET PO SCH (22:00)
[2019-07-09] MEDS ORDERED: HYDRALAZINE HCL 50 MG TABLET PO SCH (22:00)
[2019-07-10 05:51] LABS: HEMATOCRIT 35.2 % (37.9-51.0); HEMOGLOBIN 11.7 g/dL (13.5-17.0); MEAN CORPUSCULAR HEMOGLOBIN 30.6 pg (27.0-33.4); MEAN CORPUSCULAR HGB CONC 33.2 g/dL (32.0-36.0); MEAN CORPUSCULAR VOLUME 92 fl (80-97); PLATELET COUNT 231 10^3/uL (150-450); RED BLOOD COUNT 3.81 10^6/uL (4.35-5.55); RED CELL DISTRIBUTION WIDTH 13.7 % (11.5-14.0); WHITE BLOOD COUNT 5.3 10^3/uL (4.0-10.5)
[2019-07-10 06:04] LABS: ANION GAP 7 (5-19); BLOOD UREA NITROGEN 38 mg/dL (7-20); CALCIUM 9.4 mg/dL (8.4-10.2); CARBON DIOXIDE 23 mmol/L (22-30); CHLORIDE 109 mmol/L (98-107); GLUCOSE 102 mg/dL (75-110)
[2019-07-10 06:51] LABS: POTASSIUM 4.2 mmol/L (3.6-5.0)
[2019-07-10] MEDS: HEPARIN SOD (PORCINE) 5,000 UNIT/ML 1 ML VIAL SUBCUT SCH (07:01)
[2019-07-10] MEDS: PANTOPRAZOLE SODIUM 40 MG TABLET.DR PO SCH (07:01)
[2019-07-10] MEDS: BUDESONIDE NEB 0.5 MG/2 ML AMPUL NEB SCH (08:13)
[2019-07-10] MEDS: IPRATROPIUM/ALBUTEROL 0.5-2.5 MG/3 ML AMPUL NEB SCH (08:14)
[2019-07-10] MEDS: ACETYLCYSTEINE 20% SOLN 800 MG/4 ML VIAL.NEB NEB SCH (08:14)
[2019-07-10] MEDS: INSULIN REG, HUMAN 100 UNIT/ML 3 ML VIAL (PYX) SUBCUT SCH (09:02)
[2019-07-10] MEDS ORDERED: PREDNISONE 20 MG TABLET PO SCH (10:00)
[2019-07-10] MEDS: METOPROLOL SUCCINATE 50 MG TAB.SR.24H PO SCH (10:23)
[2019-07-10] MEDS: ASPIRIN 81 MG TABLET, CHEWABLE PO SCH (10:23)
[2019-07-10] MEDS: DOCUSATE SODIUM 100 MG CAPSULE PO SCH (10:23)
[2019-07-10] MEDS: ISOSORBIDE MONONITRATE 60 MG TAB.ER.24H PO SCH (10:23)
[2019-07-10] MEDS: GUAIFENESIN 600 MG TABLET.SA PO SCH (10:23)
[2019-07-10] MEDS: HYDRALAZINE HCL 25 MG TABLET PO SCH (10:23)
[2019-07-10] MEDS: FLUTICASONE/UMECLIDIN/VILANTER 100-62.5-25 MCG/DOSE IH SCH (10:24)
[2019-07-10 11:00] VITALS: BP 114/88
--- NOTE | 2019-07-10 12:24 | PDOC DISCHARGE SUMMARY ---
Impression - Admit/DC Date/PCP Admission Date/Primary Care Provider: 07/03/19 21:27 ALEXANDER VELASQUEZ MD Discharge Date: 07/10/19 - Discharge Diagnosis (3) CHF (congestive heart failure) Is this a current diagnosis for this admission?: Yes (4) HCAP (healthcare-associated pneumonia) Is this a current diagnosis for this admission?: Yes (5) Acute respiratory failure with hypoxia Is this a current diagnosis for this admission?: Yes (6) Essential hypertension Is this a current diagnosis for this admission?: Yes (7) Diabetes mellitus type 2 in nonobese Is this a current diagnosis for this admission?: Yes (8) Elevated troponin Is this a current diagnosis for this admission?: Yes - Additional Information Resuscitation Status: Full Code Discharge Diet: Cardiac, Diabetic Discharge Activity: Activity As Tolerated, Balance Activity w/Rest, Weigh Daily Referrals: ALEXANDER VELASQUEZ MD [Primary Care Provider] - 07/21/19 10:30 am Prescriptions: Fluticasone/Salmeterol [Advair 500-50 Diskus 14 Dose/Diskus] 1 inh IH Q12H 30 Days #1 inhaler Albuterol Sulfate [Albuterol Sulfate Hfa] 18 gm IH Q6 30 Days #1 hfa.aer.ad Aspirin [Daya Chewable Aspirin] 81 mg PO DAILY 30 Days #30 tab.chew Furosemide [Lasix 40 mg Tablet] 40 mg PO BID 30 Days #30 tablet Levofloxacin [Levaquin] 750 mg PO DAILY 3 Days #3 tablet Prednisone 50 mg PO DAILY 5 Days #5 tablet Tiotropium Beatty [Spiriva Respimat] 4 gm IH DAILY 30 Days #1 mist.inhal Metoprolol Succinate [Toprol XL 100 mg Tablet] 100 mg PO DAILY 30 Days #30 tab.sr.24h Home Medications: Metformin HCl [Glucophage 500 mg Tablet] 500 mg PO BID 10/03/11 Omeprazole [Prilosec 20 mg Capsule] 20 mg PO DAILY 10/03/11 Terazosin HCl 20 mg PO DAILY 10/03/11 Lovastatin [Altoprev] 40 mg PO QHS 06/22/19 Meloxicam [Mobic] 15 mg PO DAILYP PRN 06/22/19 Hydralazine HCl [Apresoline 25 mg Tablet] 25 mg PO Q6 #120 tablet 12/19/19 Isosorbide Dinitrate [Isordil Titradose 20 mg Tablet] 20 mg PO Q6 #120 tablet 06/25/19 Albuterol Sulfate [Albuterol Sulfate Hfa] 18 gm IH Q6 30 Days #1 hfa.aer.ad 07/08/19 Aspirin [Daya Chewable Aspirin] 81 mg PO DAILY 30 Days #30 tab.chew 07/08/19 Fluticasone/Salmeterol [Advair 500-50 Diskus 14 Dose/Diskus] 1 inh IH Q12H 30 Days #1 inhaler 07/08/19 Furosemide [Lasix 40 mg Tablet] 40 mg PO BID 30 Days #30 tablet 07/08/19 Levofloxacin [Levaquin] 750 mg PO DAILY 3 Days #3 tablet 07/08/19 Metoprolol Succinate [Toprol XL 100 mg Tablet] 100 mg PO DAILY 30 Days #30 tab.sr.24h 07/08/19 Prednisone 50 mg PO DAILY 5 Days #5 tablet 07/08/19 Tiotropium Beatty [Spiriva Respimat] 4 gm IH DAILY 30 Days #1 mist.inhal 07/08/19 History of Present Illiness History of Present Illness: LUCIE ANDREWS is a 68 year old male 68 year old male who presented to the emergency room with acute dyspnea. The patient admits developing shortness of breath, worsened by exertion/activity, gradually worsening over the course of the day, with his dyspnea becoming severe prior to coming to the emergency room. His dyspnea has been accompanied by a subjective fever with chills and a cough productive of small amounts of mucus. He denies other associated or accompanying signs and symptoms. He denies prior similar episodes. He admits a hospitalization earlier this month for congestive heart failure. He has not identified any additional aggravating or ameliorating factors for his dyspnea. He called EMS and was treated with CPAP by EMS during his transport. In the emergency room he was found to have a right lung pneumonia and was also noted to require supplemental oxygen to maintain an adequate O2 saturation. He was subsequently admitted to hospital for further evaluation and treatment. Hospital Course Hospital Course: (1) Acute respiratory failure with hypoxia Significant improvement. PO2 WNL on RA. Most likely due to combination of healthcare/pneumonia and CHF exacerbation and COPD exacerbation. Was a started on BiPAP, IV steroids, empiric IV antibiotics, flutter valve, incentive spirometry, ICS, LABA, LABA. Discharged on LABA, ICS, LABA, p.o. steroids and levofloxacin for another 3 days. (2) HCAP (healthcare-associated pneumonia) Likely due to recent hospitalization for acute CHF, [place], acute respiratory failure. Received 5 days of IV levofloxacin. Received 5 days of IV cefepime. Received 1 dose of Zosyn in ED. Received 1 dose of azithromycin in ED. Was discharged on levofloxacin p.o. for another 3 days. All cultures remain negative. (3) CHF (congestive heart failure) Acute systolic heart failure. proBNP 2410. Denies any history of CAD. History of hypertension. Likely exacerbated due to underlying pneumonia. 06/22/2019. 2D echo LVEF 40%. Left ventricular hypertrophy. Stage I/IV mild diastolic dysfunction. Was started on cardiac diet, fluid restriction, strict in and out, IV diuretics, LEVI, beta-blockers, PRN morphine. Patient was having having persistent elevated troponins. Ranging from 0.074- 0.079. With nonspecific T wave abnormalities. Unchanged from previous admission. I have consulted Dr. Harrell discussed this case Dr. Harrell recommends medical management this point with plan to have a outpatient stress test after discharge. Cardiology consulted. Recommendations noted. Please refer to note. (4) Essential hypertension Normotensive. Euvolemic. Home meds are hydralazine, Imdur, Lasix, metoprolol and losartan. Ordered home meds. Adjusted dosages. Outpatient follow-up with PCP and cardiology recommended. (5) Diabetes mellitus type 2 in nonobese Controlled. Hemoglobin A1c WNL. Takes metformin at home. Was a started on diabetic diet, sliding scale insulin, hypoglycemia protocol and Accu-Chek. Advised to restart home meds upon discharge. (6) Tobacco use disorder, moderate, dependence Counseled on quitting. NicoDerm patch will be provided. (7) Elevated troponin Denied any chest pain. High risk for CAD. Ranging from 0.074-0.079. With nonspecific T wave abnormalities. Unchanged from previous admission. This is likely due to acute CHF exacerbation complicated by HCAP. In previous hospitalization Dr Murry from cardiology was consulted. Plan was to have patient do stress test as outpatient. Continued antiplatelets, beta-blockers. Allergic to Levi Allergic to statins. Lipid panel from previous admission WNL. Dr. Sharri software integrator consulted who recommended medical management this point with plan to have a outpatient stress test after discharge. Please refer to note. (8) COPD exacerbation Resolved. Acute COPD exacerbation due to above. Non-oxygen dependent. Plan as per above. (9) Acute kidney injury superimposed on CKD Prerenal. Worsening of renal function since admission. Monitor volume status, monitor electrolytes and replace as needed. Avoid nephrotoxic meds. Daily BMP. If no improvement will consult nephrology Physical Exam Vital Signs: Temp Pulse Resp BP Pulse Ox 98.1 F 92 20 114/88 H 98 07/10/19 10:57 07/10/19 10:57 07/10/19 10:57 07/10/19 10:57 07/10/19 10:57 Pulse Oximeter Continuous Start: 07/03/19 21:58 Freq: RTQ4 Status: Complete Protocol: Document 07/09/19 08:24 [facility] (Rec: 07/09/19 11:31 [facility] [id number]) Pulse Oximetry Assessment Oxygen Saturation (92-100) 98 Oxygen Delivery Method Nasal Cannula Fraction of Inspired Oxygen (FIO2) 21 Equipment Usage Equipment Standby Continuous SpO2 Machine # [id number] Intake & Output 07/09/19 07/10/19 07/11/19 06:59 06:59 06:59 Intake Total 960 1530 Output Total 800 700 Balance 160 830 Weight 96.1 kg 95.9 kg General appearance: PRESENT: no acute distress, well-developed, well-nourished Head exam: PRESENT: atraumatic Eye exam: PRESENT: PERRLA Mouth exam: PRESENT: dry mucosa Neck exam: ABSENT: carotid bruit, JVD, lymphadenopathy, thyromegaly Respiratory exam: PRESENT: decreased breath sounds Cardiovascular exam: PRESENT: RRR. ABSENT: diastolic murmur, rubs, systolic murmur GI/Abdominal exam: PRESENT: normal bowel sounds, soft. ABSENT: distended, guarding, mass, organolmegaly, rebound, tenderness Rectal exam: PRESENT: deferred Extremities exam: PRESENT: full ROM. ABSENT: calf tenderness, clubbing, pedal edema Neurological exam: PRESENT: alert, awake, oriented to person, oriented to place, oriented to time, oriented to situation, CN II-XII grossly intact. ABSENT: motor sensory deficit Psychiatric exam: PRESENT: appropriate affect, normal mood. ABSENT: homicidal ideation, suicidal ideation Results Laboratory Results: WBC 5.3 10^3/uL (4.0-10.5) 07/10/19 05:23 RBC 3.81 10^6/uL (4.35-5.55) L 07/10/19 05:23 Hgb 11.7 g/dL (13.5-17.0) L 07/10/19 05:23 Hct 35.2 % (37.9-51.0) L 07/10/19 05:23 MCV 92 fl (80-97) 07/10/19 05:23 MCH 30.6 pg (27.0-33.4) 07/10/19 05:23 MCHC 33.2 g/dL (32.0-36.0) 07/10/19 05:23 RDW 13.7 % (11.5-14.0) 07/10/19 05:23 Plt Count 231 10^3/uL (150-450) 07/10/19 05:23 Lymph % (Auto) 14.7 % (13-45) 07/07/19 05:16 [place] % (Auto) 9.9 % (3-13) 07/07/19 05:16 Eos % (Auto) 1.2 % (0-6) 07/07/19 05:16 Baso % (Auto) 1.0 % (0-2) 07/07/19 05:16 Absolute Neuts (auto) 3.8 10^3/uL (1.7-8.2) 07/07/19 05:16 Absolute Lymphs (auto) 0.8 10^3/uL (0.5-4.7) 07/07/19 05:16 Absolute Monos (auto) 0.5 10^3/uL (0.1-1.4) 07/07/19 05:16 Absolute Eos (auto) 0.1 10^3/uL (0.0-0.6) 07/07/19 05:16 Absolute Basos (auto) 0.1 10^3/uL (0.0-0.2) 07/07/19 05:16 Seg Neutrophils % 73.2 % (42-78) 07/07/19 05:16 Carbonic Acid 0.97 mmol/L (1.05-1.35) L 07/03/19 21:04 HCO3/H2CO3 Ratio 22:1 07/03/19 21:04 ABG pH 7.45 (7.35-7.45) 07/03/19 21:04 ABG pCO2 32.2 mmHg (35-45) L 07/03/19 21:04 ABG pO2 83.5 mmHg (80-100) 07/03/19 21:04 ABG HCO3 22.0 mmol/L (20-24) 07/03/19 21:04 ABG Total CO2 23.0 mmol/L (23-27) 07/03/19 21:04 ABG O2 Saturation 96.8 % (94-98) 07/03/19 21:04 ABG Base Excess -1.2 mmol/L 07/03/19 21:04 FiO2 4L 07/03/19 21:04 Sodium 139.2 mmol/L (137-145) 07/10/19 05:23 Potassium 4.2 mmol/L (3.6-5.0) D 07/10/19 05:23 Chloride 109 mmol/L (98-107) H 07/10/19 05:23 Carbon Dioxide 23 mmol/L (22-30) 07/10/19 05:23 Anion Gap 7 (5-19) 07/10/19 05:23 BUN 38 mg/dL (7-20) H 07/10/19 05:23 Creatinine 1.68 mg/dL (0.52-1.25) H 07/10/19 05:23 Est GFR ( Amer) 49 (>60) L 07/10/19 05:23 Est GFR (MDRD) Non-Af 41 (>60) L 07/10/19 05:23 Glucose 102 mg/dL (75-110) 07/10/19 05:23 POC Glucose 108 mg/dL (70-110) 07/10/19 08:27 Lactic Acid 1.0 mmol/L (0.7-2.1) 07/03/19 19:35 Calcium 9.4 mg/dL (8.4-10.2) 07/10/19 05:23 Total Bilirubin 1.7 mg/dL (0.2-1.3) H 07/04/19 05:55 Direct Bilirubin 0.2 mg/dL (0.0-0.4) 07/04/19 05:55 Neonat Total Bilirubin Not Reportable 07/04/19 05:55 Neonat Direct Bilirubin Not Reportable 07/04/19 05:55 Neonat Indirect Bili Not Reportable 07/04/19 05:55 AST 19 U/L (17-59) 07/04/19 05:55 ALT 9 U/L (<50) 07/04/19 05:55 Alkaline Phosphatase 35 U/L (38-126) L 07/04/19 05:55 Creatine Kinase 120 U/L (55-170) 07/03/19 19:14 CK-MB (CK-2) 1.78 ng/mL (<4.55) 07/03/19 19:14 Troponin I 0.079 ng/mL 07/05/19 15:30 NT-Pro-B Natriuret Pep 2410 pg/mL (<125) H 07/03/19 19:14 Total Protein 6.0 g/dL (6.3-8.2) L 07/04/19 05:55 Albumin 3.4 g/dL (3.5-5.0) L 07/04/19 05:55 Prostate Specific Ag 1.610 ng/mL (<4.00) 07/10/19 05:23 Urine Color YELLOW 07/09/19 09:15 Urine Appearance CLEAR 07/09/19 09:15 Urine pH 5.0 (5.0-9.0) 07/09/19 09:15 Ur Specific [place] 1.020 07/09/19 09:15 Urine Protein 100 mg/dL (NEGATIVE) H 07/09/19 09:15 Urine Glucose (UA) NEGATIVE mg/dL (NEGATIVE) 07/09/19 09:15 Urine Ketones TRACE mg/dL (NEGATIVE) H 07/09/19 09:15 Urine Blood NEGATIVE (NEGATIVE) 07/09/19 09:15 Urine Nitrite NEGATIVE (NEGATIVE) 07/09/19 09:15 Urine Bilirubin NEGATIVE (NEGATIVE) 07/09/19 09:15 Urine Urobilinogen NEGATIVE mg/dL (<2.0) 07/09/19 09:15 Ur Leukocyte Esterase NEGATIVE (NEGATIVE) 07/09/19 09:15 Urine WBC (Auto) 1 /HPF 07/09/19 09:15 Urine RBC (Auto) 0 /HPF 07/06/19 14:26 U Hyaline Cast (Auto) 1 /LPF 07/09/19 09:15 Urine Bacteria (Auto) TRACE /HPF 07/03/19 20:18 Urine Mucus (Auto) RARE /LPF 07/09/19 09:15 Urine Ascorbic Acid NEGATIVE (NEGATIVE) 07/09/19 09:15 07/03/19 07/04/19 07/04/19 19:14 12:37 18:30 CK-MB (CK-2) 1.78 Troponin I 0.071 0.079 0.077 NT-Pro-B Natriuret Pep 2410 H 07/05/19 07/05/19 07/05/19 01:50 08:10 15:30 CK-MB (CK-2) Troponin I 0.075 0.074 0.079 NT-Pro-B Natriuret Pep Impressions: Chest X-Ray 07/03/19 18:08 IMPRESSION: In the appropriate clinical setting, increased right lung base airspace opacities is consistent with a right middle +/- right lower lobe pneumonia. Chest/Abdomen CTA 07/03/19 20:30 IMPRESSION: Suboptimal contrast bolus. No large or central pulmonary embolus. Cardiomegaly. Small bilateral pleural effusions with adjacent consolidation TECHNICAL DOCUMENTATION: Quality ID # 436: Final reports with documentation of one or more dose reduction techniques (e.g., Automated exposure control, adjustment of the mA and/or kV according to patient size, use of iterative reconstruction technique) copyright 2011 [employer]- All Rights Reserved Pelvis Ultrasound 07/09/19 00:00 IMPRESSION: NO SONOGRAPHIC ABNORMALITY IN THE BLADDER. BLADDER VOLUMES ABOVE. Vascular Ultrasound 07/09/19 00:00 IMPRESSION: NO DOPPLER EVIDENCE OF HEMODYNAMICALLY SIGNIFICANT RENAL ARTERY STENOSIS. Plan Plan of Treatment: Patient is advised to follow-up with primary care physician in 3 to 5 days. Time Spent: Greater than 30 Minutes Stroke Is this a Stroke Patient?: No Acute Heart Failure - Is this a Heart Failure Patient?: No
== END 2019-07-10 12:08 | disposition home or self-care (01) | DRG 189 ==
LOC: ER 18:04 → EH 21:27 → 4N 23:00 → 3W 07-05 12:24
PROVIDERS: ADMIT Emergency Medicine; ATTEND Emergency Medicine
DX: J96.01 Acute respiratory failure with hypoxia (principal); J18.9 Pneumonia, unspecified organism; I50.20 Unspecified systolic (congestive) heart failure; N17.9 Acute kidney failure, unspecified; J44.1 Chronic obstructive pulmonary disease with (acute) exacerbation; I11.0 Hypertensive heart disease with heart failure; E78.00 Pure hypercholesterolemia, unspecified; E11.8 Type 2 diabetes mellitus with unspecified complications; I44.0 Atrioventricular block, first degree; N40.0 Benign prostatic hyperplasia without lower urinary tract symptoms; M19.90 Unspecified osteoarthritis, unspecified site; F17.210 Nicotine dependence, cigarettes, uncomplicated; Z79.84 Long term (current) use of oral hypoglycemic drugs; Z79.899 Other long term (current) drug therapy
CPT/HCPCS: 36415; 71045; 71275; 76857; 80048; 80053; 81001; 82550; 82553; 82803; 82962; 83605; 83880; 84153; 84484; 85025; 85027; 87040; 87205; 93005; 93010; 93976; 94660; 94762; 96365; 99285; J0456; J0692; J1644; J1650; J1815; J1940; J1956; J2543; J2930; J3490; J7060; J7512; J7614; J7620

== ENCOUNTER 2019-09-04 09:43 | Emergency (ER) | payer MEDICARE ==
--- NOTE | 2019-09-04 10:30 | ER Document Report ---
ED Medical Screen (RME) - General Chief Complaint: Abdominal Pain Stated Complaint: ABDOMINAL PAIN Primary Care Provider: ALEXANDER VELASQUEZ MD [Primary Care Provider] - Follow up as needed TRAVEL OUTSIDE OF THE [place] IN LAST 30 DAYS: No - HPI Notes: 09/04/19 10:29 Patient is a 68-year-old male with history of surgical removal of cancerous polyp to his abdomen in the past, diabetes, hypertension, CHF presents complaining lower abdominal pain that is been present for the past week. He is able to eat and drink without difficulty. He is urinating normally and having normal bowel movements. He has not had any trouble urinating. No melena or hematochezia. No fever, nausea/vomiting, chest pain, shortness of breath. I have treated and performed a rapid initial assessment of this patient. A comprehensive ED assessment and evaluation of the patient, analysis of test results and completion of medical decision making process will be conducted by additional ED providers. PHYSICAL EXAMINATION: GENERAL: Well-appearing, well-nourished and in no acute distress. A&Ox4. Answers questions appropriately. Abdomen: Limited exam in triage, there is some tenderness over his lower abdomen. - Related Data Allergies/Adverse Reactions: atorvastatin [From Lipitor] Allergy (Severe, Verified 06/21/19 15:50) Swelling of Throat lisinopril Allergy (Severe, Verified 06/21/19 15:50) Swelling of Throat latex [Latex] Allergy (Intermediate, Verified 06/21/19 15:50) rash Past Medical History - Past Medical History Cardiac Medical History: Reports: Hx Hypercholesterolemia, Hx Hypertension Denies: Hx Atrial Fibrillation, Hx Congestive Heart Failure, Hx Coronary Artery Disease, Hx Heart Attack Pulmonary Medical History: Reports: Hx Respiratory Failure Denies: Hx Asthma, Hx Bronchitis, Hx COPD, Hx Pneumonia Neurological Medical History: Denies: Hx Cerebrovascular Accident, Hx Seizures Endocrine Medical History: Reports: Hx Diabetes Mellitus Type 2. Denies: Hx Diabetes Mellitus Type 1, Hx Hyperthyroidism, Hx Hypothyroidism GI Medical History: Denies: Hx Cirrhosis, Hx Crohn's Disease, Hx Hepatitis, Hx Ulcerative Colitis Musculoskeltal Medical History: Reports Hx Arthritis, Denies Hx Fibromyalgia, Denies Hx Gout Skin Medical History: Denies Hx Eczema, Denies Hx Psoriasis Psychiatric Medical History: Denies: Hx Depression Infectious Medical History: Denies: Hx Hepatitis Past Surgical History: Reports: Hx Abdominal Surgery - Colon resection, Colon polyps removed, Hx Orthopedic Surgery - Neck Fusion X 2, rotator cuff surgery, Other - Segmental colectomy for colon cancer. Denies: Hx Pacemaker - Immunizations Hx Diphtheria, Pertussis, Tetanus Vaccination: Yes - "up to date on others but past on Tetanus" per pt Physical Exam - Vital signs Vitals: Temp Pulse Resp BP Pulse Ox 97.6 F 80 16 107/79 99 09/04/19 09:48 09/04/19 09:48 09/04/19 09:48 09/04/19 09:48 09/04/19 09:48 Course - Vital Signs Vital signs: Temp Pulse Resp BP Pulse Ox 97.6 F 80 16 107/79 99 09/04/19 09:48 09/04/19 09:48 09/04/19 09:48 09/04/19 09:48 09/04/19 09:48 Doctor's Discharge - Discharge Referrals: ALEXANDER VELASQUEZ MD [Primary Care Provider] - Follow up as needed
[2019-09-04 10:57] LABS: ABSOLUTE BASOPHILS # (AUTO) 0.1 10^3/uL (0.0-0.2); ABSOLUTE LYMPHOCYTES (AUTO) 1.1 10^3/uL (0.5-4.7); ABSOLUTE MONOCYTES (AUTO) 0.7 10^3/uL (0.1-1.4); ABSOLUTE NEUT (AUTO) 7.2 10^3/uL (1.7-8.2); BASOPHILS % (AUTO) 0.7 % (0-2); EOSINOPHILS % (AUTO) 0.5 % (0-6); HEMATOCRIT 37.4 % (37.9-51.0); HEMOGLOBIN 12.6 g/dL (13.5-17.0); LYMPHOCYTES % (AUTO) 12.2 % (13-45); MEAN CORPUSCULAR HEMOGLOBIN 29.8 pg (27.0-33.4); MEAN CORPUSCULAR HGB CONC 33.8 g/dL (32.0-36.0); MEAN CORPUSCULAR VOLUME 88 fl (80-97); MONOCYTES % (AUTO) 7.6 % (3-13); PLATELET COUNT 299 10^3/uL (150-450); RED BLOOD COUNT 4.25 10^6/uL (4.35-5.55); RED CELL DISTRIBUTION WIDTH 14.2 % (11.5-14.0); TOTAL CELLS COUNTED % (AUTO) 100 %; WHITE BLOOD COUNT 9.1 10^3/uL (4.0-10.5)
[2019-09-04 11:15] LABS: APPEARANCE,URINE CLEAR; BILIRUBIN,URINE NEGATIVE (NEGATIVE); COLOR,URINE YELLOW; GLUCOSE, URINE NEGATIVE (NEGATIVE); KETONES,URINE NEGATIVE (NEGATIVE); PROTEIN,URINE 30 mg/dL (NEGATIVE); URINE SPECIFIC GRAVITY 1.005; UROBILINOGEN,URINE NEGATIVE mg/dL (<2.0)
[2019-09-04 11:20] LABS: ALBUMIN 3.9 g/dL (3.5-5.0); ALKALINE PHOSPHATASE 37 U/L (38-126); ANION GAP 13 (5-19); ASPARTATE AMINO TRANSFERASE 15 U/L (17-59); BILIRUBIN,DIRECT 0.3 mg/dL (0.0-0.4); BILIRUBIN,TOTAL 1.5 mg/dL (0.2-1.3); BLOOD UREA NITROGEN 13 mg/dL (7-20); CALCIUM 9.9 mg/dL (8.4-10.2); CARBON DIOXIDE 25 mmol/L (22-30); CHLORIDE 101 mmol/L (98-107); GLUCOSE 105 mg/dL (75-110); POTASSIUM 3.9 mmol/L (3.6-5.0)
--- NOTE | 2019-09-04 12:39 | RADIOLOGY REPORT (SQ) ---
EXAM DESCRIPTION: CT ABD/PELVIS WITH IV ONLY COMPLETED DATE/TIME: 09/04/2019 12:23 pm REASON FOR STUDY: lower abdominal pain COMPARISON: 05/27/2017 TECHNIQUE: CT scan of the abdomen and pelvis performed using helical scanning technique with dynamic intravenous contrast injection. No oral contrast. Images reviewed with lung, soft tissue, and bone windows. Reconstructed coronal and sagittal MPR images reviewed. Delayed images for evaluation of the urinary system also acquired. All images stored on PACS. All CT scanners at this facility use dose modulation, iterative reconstruction, and/or weight based d osing when appropriate to reduce radiation dose to as low as reasonably achievable (ALARA). [facility]: Dose Right [facility]: CareDose [facility]: Dose Right [facility]: Teradose 4D [facility]: [employer] CONTRAST TYPE AND DOSE: See chart RENAL FUNCTION: Creatinine 1.42 RADIATION DOSE: CT Rad equipment meets quality standard of care and radiation dose reduction techniq ues were employed. CTDIvol: NaN mGy. DLP: 0 mGy-cm.. LIMITATIONS: None. FINDINGS: LOWER CHEST: Trace bilateral pleural effusions. LIVER: Normal size. No masses. No dilated ducts. SPLEEN: Normal size. No focal lesions. PANCREAS: No masses. No significant calcifications. No adjacent inflammation or peripancreatic fluid collections. Pancreatic duct not dilated. GALLBLADDER: Cholelithiasis without secondary evidence of acute cholecystitis. ADRENAL GLANDS: Bilateral adrenal gland nodules, largest on the left measuring up to 2.9 cm. These d emonstrate indeterminate imaging characteristic on this single phase scan. Findings grossly stable f rom CT dated 05/27/2017. RIGHT KIDNEY AND URETER: No solid masses. No significant calcifications. No hydronephrosis or hyd roureter. LEFT KIDNEY AND URETER: No solid masses. No significant calcifications. No hydronephrosis or hydr oureter. AORTA AND VESSELS: Aortoiliac atherosclerosis without aneurysm. No dissection. Ostial atherosclerosi s at the celiac and SMA origin with likely mild to moderate SMA stenosis. Renals are opacified. RENALDO is opacified pre RETROPERITONEUM: No retroperitoneal adenopathy, hemorrhage or masses. BOWEL AND PERITONEAL CAVITY: Multiple colonic diverticula. Long segment wall thickening involving th e descending colon with adjacent pericolonic fat stranding. No evidence of large volume pneumoperito neum or focal drainable collection. No evidence of intestinal obstruction. Gas fluid levels noted w ithin the transverse colon. Evidence of prior bowel resection with anastomotic chain staple line wit hin the right upper quadrant. APPENDIX: Surgically absent. PELVIS: Prostatomegaly with extension into the bladder base. Prostate measures 4.9 cm transversely. Decompressed urinary bladder. No pelvic adenopathy or free fluid. ABDOMINAL WALL: No masses. No hernias. BONES: No acute bony abnormality. Multilevel spondylosis and lower lumbar facet arthropathy. No marco picious osseous lesions. OTHER: No other significant finding. IMPRESSION: 1. Multiple colonic diverticula with long segment wall thickening and pericolonic stran ding about the descending colon suggestive of acute uncomplicated diverticulitis. No large volume pn eumoperitoneum or drainable collection. Underlying lesion is not entirely excluded, recommend correl ation with colonoscopic history. 2. Small bilateral pleural effusions. 3. Cholelithiasis without secondary evidence of acute cholecystitis. 4. Prostatomegaly. 5. Stable bilateral indeterminate adrenal nodules compared to 2017. TECHNICAL DOCUMENTATION: JOB ID: [id number] Quality ID # 436: Final reports with documentation of one or more dose reduction techniques (e.g., Au tomated exposure control, adjustment of the mA and/or kV according to patient size, use of iterative reconstruction technique) 2010 [employer]- All Rights Reserved Reading location - IP/workstation name: [email or web address]
[2019-09-04] MEDS ORDERED: METRONIDAZOLE 500 MG/NS RTU 500 MG/100 ML RTUPB IV ONE (12:59)
[2019-09-04] MEDS ORDERED: LEVOFLOXACIN 750 MG/D5W RTU 750 MG/150 ML RTUPB IV ONE (12:59)
--- NOTE | 2019-09-04 13:52 | ER Document Report ---
Entered by ARIS US SCRIBE 09/04/19 1259 Acting as scribe for:BEREKET HOLT MD ED General - General Chief Complaint: Abdominal Pain Stated Complaint: ABDOMINAL PAIN Time Seen by Provider: 09/04/19 12:46 Primary Care Provider: ALEXANDER VELASQUEZ MD [Primary Care Provider] - Follow up as needed Information source: Patient Notes: 68-year-old male presents to the emergency department complaining of lower abdominal pain that began one week ago. Patient denies nausea, vomiting and fever. Patient explained his small bowel resection surgery that was "2 years ago which removed cancerous polyps". TRAVEL OUTSIDE OF THE [place] IN LAST 30 DAYS: No - Related Data Allergies/Adverse Reactions: atorvastatin [From Lipitor] Allergy (Severe, Verified 06/21/19 15:50) Swelling of Throat lisinopril Allergy (Severe, Verified 06/21/19 15:50) Swelling of Throat latex [Latex] Allergy (Intermediate, Verified 06/21/19 15:50) rash Home Medications: furosemide Past Medical History - General Information source: Patient - Social History Smoking Status: Current Some Day Smoker Cigarette use (# per day): Yes Chew tobacco use (# tins/day): No Family History: DM, Hypertension Patient has suicidal ideation: No Patient has homicidal ideation: No - Past Medical History Cardiac Medical History: Reports: Hx Congestive Heart Failure, Hx Coronary Artery Disease, Hx Hypercholesterolemia, Hx Hypertension Pulmonary Medical History: Reports: Hx COPD, Hx Respiratory Failure Endocrine Medical History: Reports: Hx Diabetes Mellitus Type 2 Musculoskeletal Medical History: Reports Hx Arthritis Past Surgical History: Reports: Hx Abdominal Surgery - Colon resection, Colon polyps removed, Hx Orthopedic Surgery - Neck Fusion X 2, rotator cuff surgery, Other - Segmental colectomy for colon cancer - Immunizations Hx Diphtheria, Pertussis, Tetanus Vaccination: Yes - "up to date on others but past on Tetanus" per pt Hx Pneumococcal Vaccination: 04/07/18 Review of Systems - Review of Systems Constitutional: See HPI. denies: Fever EENT: No symptoms reported Cardiovascular: No symptoms reported Respiratory: No symptoms reported Gastrointestinal: See HPI, Abdominal pain. denies: Nausea, Vomiting Genitourinary: No symptoms reported Male Genitourinary: No symptoms reported Musculoskeletal: No symptoms reported Skin: No symptoms reported Hematologic/Lymphatic: No symptoms reported Neurological/Psychological: No symptoms reported -: Yes All other systems reviewed and negative Physical Exam - Vital signs Vitals: Temp Pulse Resp BP Pulse Ox 97.6 F 80 16 107/79 99 09/04/19 09:48 09/04/19 09:48 09/04/19 09:48 09/04/19 09:48 09/04/19 09:48 - Notes Notes: Physical Exam: General: Alert, appears well. HEENT: Normocephalic. Atraumatic. PERRL. Extraocular movements intact. Oropharynx clear. Neck: Supple. Non-tender. Respiratory: No respiratory distress. Clear and equal breath sounds bilaterally. Cardiovascular: Regular rate and rhythm. Abdominal: Lower abdomen and pelvis region tenderness to palpation with no guarding or rebound. No distension. Normal Bowel Sounds. Back: No gross abnormalities. Extremities: Moves all four extremities. Upper extremities: Normal inspection. Normal ROM. Lower extremities: Normal inspection. No edema. Normal ROM. Neurological: Normal cognition. AAOx4. Normal speech. Psychological: Normal affect. Normal Mood. Skin: Warm. Dry. Normal color. Course - Vital Signs Vital signs: Temp Pulse Resp BP Pulse Ox 97.6 F 80 16 107/79 99 09/04/19 09:48 09/04/19 09:48 09/04/19 09:48 09/04/19 09:48 09/04/19 09:48 - Laboratory Result Diagrams: 09/04/19 10:42 09/04/19 10:42 Laboratory results interpreted by me: 09/04/19 09/04/19 09/04/19 10:42 10:42 10:42 RBC 4.25 L Hgb 12.6 L Hct 37.4 L RDW 14.2 H Lymph % (Auto) 12.2 L Seg Neutrophils % 79.0 H Creatinine 1.42 H Est GFR (MDRD) Non-Af 49 L Total Bilirubin 1.5 H AST 15 L Alkaline Phosphatase 37 L Urine Protein 30 H Discharge - Discharge Clinical Impression: Diverticulitis large intestine Qualifiers: Diverticulitis bleeding: without bleeding Diverticulitis complication: without perforation or abscess Qualified Code(s): K57.32 - Diverticulitis of large intestine without perforation or abscess without bleeding Condition: Stable Disposition: HOME, SELF-CARE Additional Instructions: Diverticulitis: You have been diagnosed as having diverticulitis. This is an inflammation of a small pouch attached to the colon, called a diverticulum. Many of these small pouches can form on the colon as you get older. They are often caused by constipation. When inflamed or infected, symptoms arise -- usually abdominal pain, constipation or diarrhea, fever, and blood in the stool. Severe diverticulitis may require hospitalization. More mild cases are usually treated with antibiotics and clear liquid diet. As you improve, a diet low in residue (one which forms little stool) is prescribed. When you are better, you should eat a high-fiber diet. Stool softeners (like Metamucil) are usually recommended. Call the doctor or go to the hospital if there is increasing pain, vomiting, high fever, large amounts of blood passed, or if bowel movements cease. Take the medications as prescribed. Drink plenty of fluids today. Take Tylenol for pain as needed. Follow-up with your primary care provider at the first of the week for recheck. RETURN TO THE EMERGENCY ROOM IF ANY NEW OR WORSENING SYMPTOMS. Prescriptions: Ciprofloxacin HCl [Cipro 500 mg Tablet] 500 mg PO BID #14 tablet Metronidazole [Flagyl 500 mg Tablet] 500 mg PO TID #21 tablet Referrals: ALEXANDER VELASQUEZ MD [Primary Care Provider] - Follow up as needed I personally performed the services described in the documentation, reviewed and edited the documentation which was dictated to the scribe in my presence, and it accurately records my words and actions.
[2019-09-04] MEDS ORDERED: CIPROFLOXACIN HCL 500 MG TABLET PO ONE (14:22)
[2019-09-04 15:56] VITALS: BP 130/93
== END 2019-09-04 15:55 | disposition home or self-care (01) ==
LOC: ER 09:43
DX: K57.32 Diverticulitis of large intestine without perforation or abscess without bleeding (principal); R10.30 Lower abdominal pain, unspecified; F17.210 Nicotine dependence, cigarettes, uncomplicated; I50.9 Heart failure, unspecified; I25.10 Atherosclerotic heart disease of native coronary artery without angina pectoris; E78.00 Pure hypercholesterolemia, unspecified; I11.0 Hypertensive heart disease with heart failure; E11.9 Type 2 diabetes mellitus without complications; Z91.040 Latex allergy status
CPT/HCPCS: 99284; 96365; 36415; 83690; 85025; 80053; 81001; 74177; A9270; J3490